=== PATIENT | female | born 1930 | race Caucasian/White ===

== ENCOUNTER 2016-08-10 00:37 | Inpatient (IN) | payer MEDICARE, BC ==
[~2016-08-10] VITALS: Ht 152.4 cm; Wt 41.3 kg
[2016-08-10] MEDS ORDERED: TdaP Vaccine 0.5ml Syr IM ONE (00:45)
[2016-08-10] MEDS ORDERED: Morphine Sulfate 4mg/ml Inj IVP ONE ×3 (00:45→03:45)
--- NOTE | 2016-08-10 00:59 | Emergency Room Report ---
History of Present Illness General Chief Complaint: Multiple Trauma/Fall Source: Patient, EMS Present Illness HPI This is an 85-year-old female with multiple medical problem and also multiple allergy to medication. She presents with chief complaint of a fall and left hip pain. She said she slipped on her socks. Landed on her left hip. Also sustained a laceration to left forearm. Pain is 10 out of 10. Unable to walk. Came in by EMS. EMS gave her morphine without much relief. No other injury. Did not hit her head. Not on anticoagulations. Allergies: Coded Allergies: DIAZEPAM (Verified Allergy, Unknown, 08/10/16) ERYTHROMYCIN BASE (Verified Allergy, Unknown, 08/10/16) LATEX (Verified Allergy, Unknown, 08/10/16) MEPERIDINE (Verified Allergy, Unknown, 08/10/16) MOXIFLOXACIN (Verified Allergy, Unknown, 08/10/16) PENICILLINS (Verified Allergy, Unknown, 08/10/16) THIOPENTAL (Verified Allergy, Unknown, 08/10/16) Uncoded Allergies: iv dye (Allergy, Unknown, 08/10/16) Patient History Past Medical History: see triage record, old chart reviewed Past Surgical History: other Pertinent Family History: none Social History: Denies: smoking Now: No Immunizations: other Reviewed Nursing Documentation: PMH: Agreed, PSxH: Agreed Nursing Documentation-PMH Hx Neurological Problems: Yes - CERVICAL SPINAL STENOSIS Review of Systems Eye: Denies: blurred vision, eye pain ENT: Denies: ear pain, nose congestion, throat swelling Respiratory: Denies: cough, shortness of breath Cardiovascular: Denies: chest pain, palpitations Gastrointestinal: Denies: abdominal pain, diarrhea, nausea, vomiting Musculoskeletal: Reports: joint pain, Denies: back pain Skin: Denies: rash Neurological: Denies: headache, numbness Endocrine: Denies: increased thirst, increased urine Hematologic/Lymphatic: Denies: easy bruising All Other Systems: negative except mentioned in HPI Physical Exam Vital Signs Date Time Temp Pulse Resp B/P Pulse Ox O2 Delivery O2 Flow Rate FiO2 08/10/16 00:30 97.2 97 18 164/91 98 Room Air vitals with hypertension Sp02 EP Interpretation: reviewed, normal General Appearance: alert, moderate distress, thin, Chronically Ill Head: normocephalic, atraumatic Eyes: bilateral eye EOMI, bilateral eye PERRL ENT: hearing grossly normal, normal pharynx Neck: full range of motion, supple, no meningismus Respiratory: chest non-tender, lungs clear, normal breath sounds Cardiovascular #1: regular rate, rhythm, no murmur Gastrointestinal: normal bowel sounds, non tender, no mass, no organomegaly, no bruit, non-distended Musculoskeletal: back normal, other - Left leg: Short and internally rotated. Hip is tender. Neurologic: alert, oriented x3 Psychiatric: mood/affect normal Skin: warm/dry Procedures Laceration/Wound Repair Laceration/Wound Repair : Consent: Verbal Wound Location: upper extremity Wound Length (cm): 3 Wound Explored: clean Irrigated w/ Saline (ccs): 1000 Betadine Prep?: No Wound Repaired With: sutures Suture Size/Type: 4:0, proline Number of Sutures: 6 Medical Decision Making Diagnostic Impression: Primary Impression: Closed intertrochanteric fracture of left hip Qualified Codes: S72.142A - Displaced intertrochanteric fracture of left femur , initial encounter for closed fracture Additional Impressions: Laceration of forearm, left Qualified Codes: S51.812A - Laceration without foreign body of left forearm, initial encounter Fall Qualified Codes: W19.XXXA - Unspecified fall, initial encounter ER Course Patient with a mechanical fall sustaining a left fracture. No dislocation. We' ll need hip replacement. Patient emitted for further workup and orthopedic consultation. No head injury. Laboratory Tests Test 08/10/16 01:20 08/10/16 02:30 White Blood Count 12.4 K/UL (4.8-10.8) H Red Blood Count 4.17 M/UL (4.20-5.40) L Hemoglobin 12.8 G/DL (12.0-16.0) Hematocrit 38.3 % (37.0-47.0) Mean Corpuscular Volume 92 FL (80-99) Mean Corpuscular Hemoglobin 30.7 PG (27.0-31.0) Mean Corpuscular Hemoglobin Concent 33.4 G/DL (32.0-36.0) Red Cell Distribution Width 12.8 % (11.6-14.8) Platelet Count 291 K/UL (150-450) Mean Platelet Volume 7.0 FL (6.5-10.1) Neutrophils (%) (Auto) 76.1 % (45.0-75.0) H Lymphocytes (%) (Auto) 17.9 % (20.0-45.0) L Monocytes (%) (Auto) 3.9 % (1.0-10.0) Eosinophils (%) (Auto) 1.5 % (0.0-3.0) Basophils (%) (Auto) 0.6 % (0.0-2.0) Prothrombin Time 10.4 SEC (9.30-11.50) Prothromb Time International Ratio 1.0 (0.9-1.1) Activated Partial Thromboplast Time 22 SEC (23-33) L Sodium Level 139 mEQ/L (135-145) Potassium Level 4.1 mEQ/L (3.4-4.9) Chloride Level 98 mEQ/L (98-107) Carbon Dioxide Level 25 mEQ/L (20-30) Anion Gap 16 (5-15) H Blood Urea Nitrogen 29 mg/dL (7-23) H Creatinine 0.8 mg/dL (0.5-0.9) Estimat Glomerular Filtration Rate mL/min (>60) Glucose Level 187 mg/dL (74-106) H Calcium Level 8.2 mg/dL (8.6-10.2) L Troponin I < 0.30 ng/mL (<=0.30) Urine Color Yellow Urine Appearance Clear Urine pH 5 (4.5-8.0) Urine Specific [place] 1.020 (1.005-1.035) Urine Protein Negative (NEGATIVE) Urine Glucose (UA) Negative (NEGATIVE) Urine Ketones Negative (NEGATIVE) Urine Occult Blood 2+ (NEGATIVE) H Urine Nitrite Negative (NEGATIVE) Urine Bilirubin Negative (NEGATIVE) Urine Urobilinogen Normal MG/DL (0.0-1.0) Urine Leukocyte Esterase Negative (NEGATIVE) Urine RBC 2-4 /HPF (0 - 2) H Urine WBC 0-2 /HPF (0 - 2) Urine Squamous Epithelial Cells Few /LPF (NONE/OCC) Urine Bacteria None /HPF (NONE) Lab Results Impression labs normal EKG Diagnostic Results Rate: tachycardiac Rhythm: NSR ST Segments: no acute changes Rhythm Strip Diag. Results EP Interpretation: yes Rate: 100 Rhythm: NSR, no PVC's, no ectopy Chest X-Ray Diagnostic Results EP Interpretation: Yes Findings: no consolidation, no effusion, no pneumothorax, no acute cardiopulmonary disease Number of Views: 1 Other X-Ray Diagnostic Results Other X-Ray Diagnostic Results : X-Ray Ordered: Left hip x-rays Date: Aug 10, 2016 Time: 03:39 EP Interpretation: Yes Findings: no dislocation, no soft tissue swelling, other - Displace intertrochanteric fracture Number of Views: 3 Other Impression Pelvis x-ray: one view. Interpreted by me. Displaced left anterior trochanteric fracture. No soft tissue swelling. No dislocation. CT/MRI/US Diagnostic Results CT/MRI/US Diagnostic Results : Imaging Test Ordered: CT pelvis Impression read by radiologist. Displaced left intertrochanteric fracture. Last Vital Signs Date Time Temp Pulse Resp B/P Pulse Ox O2 Delivery O2 Flow Rate FiO2 08/10/16 00:30 97.2 97 18 164/91 98 Room Air Status: improved Disposition: ADMITTED INPATIENT Condition: Serious ROSA BALBUENA M.D. Aug 10, 2016 00:59
[2016-08-10 01:15] VITALS: BP 164/79
[2016-08-10 01:42] LABS: BASOPHILS % (AUTO) 0.6 % (0.0-2.0); EOSINOPHILS % (AUTO) 1.5 % (0.0-3.0); LYMPHOCYTES % (AUTO) 17.9 % (20.0-45.0); MEAN CORPUSCULAR HEMOGLOBIN 30.7 PG (27.0-31.0); MEAN CORPUSCULAR HGB CONC 33.4 G/DL (32.0-36.0); MEAN CORPUSCULAR VOLUME 92 FL (80-99); MONOCYTES % (AUTO) 3.9 % (1.0-10.0); NEUTROPHILS % (AUTO) 76.1 % (45.0-75.0); PLATELET COUNT 291 K/UL (150-450); RED BLOOD COUNT 4.17 M/UL (4.20-5.40); RED CELL DISTRIBUTION WIDTH 12.8 % (11.6-14.8); WHITE BLOOD COUNT 12.4 K/UL (4.8-10.8)
[2016-08-10] MEDS ORDERED: DiphenhydrAMINE 50mg/ml Inj IVP ONE (01:45)
[2016-08-10 02:03] LABS: ANION GAP 16 (5-15); CALCIUM 8.2 mg/dL (8.6-10.2); CARBON DIOXIDE 25 mEQ/L (20-30); CHLORIDE 98 mEQ/L (98-107); CREATININE 0.8 mg/dL (0.5-0.9); HEMOLYSIS 5; POTASSIUM 4.1 mEQ/L (3.4-4.9); SODIUM 139 mEQ/L (135-145)
[2016-08-10 02:08] LABS: TROPONIN I < 0.30 ng/mL (<=0.30)
[2016-08-10] MEDS: LORazepam Inj 2mg/ml 1ml IV ONE ×2 (02:09→02:12)
[2016-08-10 02:10] LABS: PROTHROMBIN TIME 10.4 SEC (9.30-11.50)
[2016-08-10 02:45] LABS: APPEARANCE,URINE CLEAR; KETONES,URINE NEGATIVE (NEGATIVE); LEUKOCYTE ESTERASE ,URINE NEGATIVE (NEGATIVE); NITRITE,URINE NEGATIVE (NEGATIVE); PH,URINE 5 (4.5-8.0); PROTEIN,URINE NEGATIVE (NEGATIVE); UROBILINOGEN,URINE NORMAL MG/DL (0.0-1.0)
[2016-08-10 02:52] LABS: SQUAMOUS EPITHELIAL CELL,UR FEW /LPF (NONE/OCC); WBC,URINE 0-2 /HPF (0 - 2)
[2016-08-10 03:15] VITALS: BP 168/81
[2016-08-10 04:15] VITALS: BP 165/80
[2016-08-10] MEDS ORDERED: ROXICODONE5 MG ORAL (05:01)
[2016-08-10] MEDS ORDERED: MIRALAX17 G2 ORAL (05:01)
[2016-08-10] MEDS ORDERED: Mylanta II UD 30ml ORAL PRN (07:00)
[2016-08-10] MEDS ORDERED: Zolpidem 5mg tab ORAL PRN (07:00)
--- NOTE | 2016-08-10 08:33 | Consultation ---
Consult Note Consult Note Patient seen/evaluated. Right Hip IT fracture. patient has had cardiac issues/murmur in the past Ambulatory prior to this fall. Will need ORIF with gamma nail Will need medical optimization and clearance prior to surgery. Discussed with patients critical care paramedic and patient. Also contacted Bryanna her daughter to discuss. Thank you. HELEN MYRICK Aug 10, 2016 08:33
[2016-08-10] MEDS ORDERED: Flonase Nasal Inhaler 16gm NASAL SCH (09:00)
[2016-08-10] MEDS: Heparin 5000 units/ml inj SUBQ SCH ×2 (09:00→21:00)
[2016-08-10] MEDS: Flonase Nasal Inhaler 16gm NASAL SCH (09:00)
--- NOTE | 2016-08-10 10:14 | Diagnostic Imaging Report ---
Indication: Left hip pain Technique: XRAY HIP 2V LEFT Comparison: None Findings: There is a comminuted left proximal femoral intratrochanteric fracture. There is osteopenia. Atherosclerotic changes are noted. Degenerative changes of the spine are seen. Impression: Comminuted left proximal femoral intratrochanteric fracture.
--- NOTE | 2016-08-10 10:15 | Diagnostic Imaging Report ---
Indication: Left hip pain Technique: AP pelvis Comparison: None Findings: There is a comminuted left proximal femoral intratrochanteric fracture. There is osteopenia. Atherosclerotic changes are noted. Degenerative changes of the spine are seen. Impression: Comminuted left proximal femoral intratrochanteric fracture.
[2016-08-10] MEDS: Morphine Sulfate 2mg/ml Inj IVP PRN ×2 (11:19→13:11)
--- NOTE | 2016-08-10 12:26 | Consultation ---
History of Present Illness General Date patient seen: Aug 10, 2016 Chief Complaint: Multiple Trauma/Fall Referring physician: Dr. Newell Reason for Consultation: Inpatient management Present Illness HPI 85-year-old female with dementia, cachexia presented with chief complaint of a fall and left hip pain. She said she slipped on her socks. Landed on her left hip. she was diagnosed to have Left hip fracture and admitted for orthopedic intervention. Allergies: Coded Allergies: DIAZEPAM (Verified Allergy, Unknown, 08/10/16) ERYTHROMYCIN BASE (Verified Allergy, Unknown, 08/10/16) LATEX (Verified Allergy, Unknown, 08/10/16) MEPERIDINE (Verified Allergy, Unknown, 08/10/16) MOXIFLOXACIN (Verified Allergy, Unknown, 08/10/16) PENICILLINS (Verified Allergy, Unknown, 08/10/16) THIOPENTAL (Verified Allergy, Unknown, 08/10/16) Uncoded Allergies: iv dye (Allergy, Unknown, 08/10/16) Medication History Scheduled Polyethylene Glycol 3350* (Miralax*), 17 GM ORAL DAILY, (Reported) Miscellaneous Medications Oxycodone HCl (Oxycodone HCl), 10 MG ORAL, (Reported) Patient History Healthcare decision maker Resuscitation status Full Code Advanced Directive on File Past Medical/Surgical History Past Medical/Surgical History: (1) Dementia Review of Systems All Other Systems: negative except mentioned in HPI Physical Exam General Appearance: WD/WN, no apparent distress Lines, tubes and drains: peripheral, central line HEENT: normocephalic, atraumatic Neck: non-tender, normal alignment Respiratory/Chest: chest wall non-tender, lungs clear Cardiovascular/Chest: normal peripheral pulses, normal rate Abdomen: normal bowel sounds Genitourinary/Rectal: normal genital exam Extremities: normal range of motion Last 24 Hour Vital Signs Date Time Temp Pulse Resp B/P Pulse Ox O2 Delivery O2 Flow Rate FiO2 08/10/16 04:40 97.2 107 23 168/81 94 Room Air 08/10/16 04:15 97.3 107 23 165/80 94 Room Air 08/10/16 04:13 97.2 08/10/16 03:15 97.2 106 23 168/81 94 Room Air 08/10/16 01:22 97.1 08/10/16 01:22 97.1 08/10/16 01:15 105 22 164/79 96 Room Air 08/10/16 00:30 97.2 97 18 164/91 98 Room Air Intake and Output 08/09/16 08/10/16 19:00 07:00 Output Total 50 ml Balance -50 ml Output Urine Total 50 ml Laboratory Tests Test 08/10/16 01:20 08/10/16 02:30 White Blood Count 12.4 K/UL (4.8-10.8) H Red Blood Count 4.17 M/UL (4.20-5.40) L Hemoglobin 12.8 G/DL (12.0-16.0) Hematocrit 38.3 % (37.0-47.0) Mean Corpuscular Volume 92 FL (80-99) Mean Corpuscular Hemoglobin 30.7 PG (27.0-31.0) Mean Corpuscular Hemoglobin Concent 33.4 G/DL (32.0-36.0) Red Cell Distribution Width 12.8 % (11.6-14.8) Platelet Count 291 K/UL (150-450) Mean Platelet Volume 7.0 FL (6.5-10.1) Neutrophils (%) (Auto) 76.1 % (45.0-75.0) H Lymphocytes (%) (Auto) 17.9 % (20.0-45.0) L Monocytes (%) (Auto) 3.9 % (1.0-10.0) Eosinophils (%) (Auto) 1.5 % (0.0-3.0) Basophils (%) (Auto) 0.6 % (0.0-2.0) Prothrombin Time 10.4 SEC (9.30-11.50) Prothromb Time International Ratio 1.0 (0.9-1.1) Activated Partial Thromboplast Time 22 SEC (23-33) L Sodium Level 139 mEQ/L (135-145) Potassium Level 4.1 mEQ/L (3.4-4.9) Chloride Level 98 mEQ/L (98-107) Carbon Dioxide Level 25 mEQ/L (20-30) Anion Gap 16 (5-15) H Blood Urea Nitrogen 29 mg/dL (7-23) H Creatinine 0.8 mg/dL (0.5-0.9) Estimat Glomerular Filtration Rate mL/min (>60) Glucose Level 187 mg/dL (74-106) H Calcium Level 8.2 mg/dL (8.6-10.2) L Troponin I < 0.30 ng/mL (<=0.30) Urine Color Yellow Urine Appearance Clear Urine pH 5 (4.5-8.0) Urine Specific [place] 1.020 (1.005-1.035) Urine Protein Negative (NEGATIVE) Urine Glucose (UA) Negative (NEGATIVE) Urine Ketones Negative (NEGATIVE) Urine Occult Blood 2+ (NEGATIVE) H Urine Nitrite Negative (NEGATIVE) Urine Bilirubin Negative (NEGATIVE) Urine Urobilinogen Normal MG/DL (0.0-1.0) Urine Leukocyte Esterase Negative (NEGATIVE) Urine RBC 2-4 /HPF (0 - 2) H Urine WBC 0-2 /HPF (0 - 2) Urine Squamous Epithelial Cells Few /LPF (NONE/OCC) Urine Bacteria None /HPF (NONE) Height (Feet): 5 Height (Inches): 0.00 Weight (Pounds): 91 Medications Current Medications Medications (Trade) Dose Ordered Sig/Taiwo Route PRN Reason Start Time Stop Time Status Last Admin Dose Admin Acetaminophen (Tylenol) 650 mg Q4H PRN ORAL fever 08/10/16 07:00 09/09/16 06:59 Al Hydroxide/Mg Hydroxide (Mylanta II) 30 ml Q6H PRN ORAL dyspepsia 08/10/16 07:00 09/09/16 06:59 Dextrose (Dextrose 50%) STAT PRN IV Hypoglycemia 08/10/16 07:00 09/09/16 06:59 Fluticasone Propionate (Flonase) 2 spray DAILY NASAL 08/10/16 09:00 09/09/16 08:59 Heparin Sodium (Porcine) (Heparin 5000 units/ml) 5,000 units EVERY 12 HOURS SUBQ 08/10/16 09:00 09/09/16 08:59 Lorazepam (Ativan 2mg/ml 1ml) 0.4 mg EVERY 4 HOURS PRN IM Agitation 08/10/16 12:15 08/17/16 12:14 UNV Morphine Sulfate (Morphine Sulfate) 2 mg EVERY 4 HOURS PRN IVP For Pain 4-6 08/10/16 07:00 08/17/16 06:59 08/10/16 11:19 Morphine Sulfate (Morphine Sulfate) 2 mg Q4H PRN SUBQ For Pain 08/10/16 12:15 08/17/16 12:14 UNV Ondansetron HCl (Zofran) 4 mg Q6H PRN IVP Nausea & Vomiting 08/10/16 07:00 09/09/16 06:59 Oxycodone HCl (Roxicodone) 10 mg EVERY 8 HOURS ORAL 08/10/16 14:00 08/17/16 13:59 Polyethylene Glycol (Miralax) 17 gm HSPRN PRN ORAL Constipation 08/10/16 07:00 09/09/16 06:59 Sodium Chloride (Sodium Chloride 1000ml bag) 1,000 ml @ 75 mls/hr [id number] IVLG 08/12/16 06:00 09/11/16 05:59 Zolpidem Tartrate 5 mg 5 mg HSPRN PRN ORAL Insomnia 08/10/16 07:00 09/09/16 06:59 Assessment/Plan Problem List: (1) Severe protein-calorie malnutrition ICD Codes: E43 - Unspecified severe protein-calorie malnutrition SNOMED: 862357998 (2) Azotemia ICD Codes: R79.89 - Other specified abnormal findings of blood chemistry SNOMED: 325083297 (3) Dementia ICD Codes: F03.90 - Unspecified dementia without behavioral disturbance SNOMED: 45567482 (4) Closed intertrochanteric fracture of left hip ICD Codes: S72.142A - Displaced intertrochanteric fracture of left femur, initial encounter for closed fracture SNOMED: 15257849 Qualifiers: Qualified Codes: S72.142A - Displaced intertrochanteric fracture of left femur, initial encounter for closed fracture Assessment/Plan IV fluids pain management f/u by ortho check electrolytes. KYRA MOMIN Aug 10, 2016 12:26
[2016-08-10 12:48] VITALS: BP 118/90
[2016-08-10] MEDS: LORazepam Inj 2mg/ml 1ml IM PRN ×3 (13:21→18:53)
[2016-08-10] MEDS: oxyCODONE 5mg IR tab ORAL SCH ×2 (13:22→21:13)
--- NOTE | 2016-08-10 14:15 | Cardiology Progress Note ---
Assessment/Plan Assessment/Plan The patient is seen and examined, full consult note is dictated. Objective Last 24 Hour Vital Signs Date Time Temp Pulse Resp B/P Pulse Ox O2 Delivery O2 Flow Rate FiO2 08/10/16 12:48 97.0 48 18 118/90 94 Nasal Cannula 2.0 08/10/16 04:40 97.2 107 23 168/81 94 Room Air 08/10/16 04:15 97.3 107 23 165/80 94 Room Air 08/10/16 04:13 97.2 08/10/16 03:15 97.2 106 23 168/81 94 Room Air 08/10/16 01:22 97.1 08/10/16 01:22 97.1 08/10/16 01:15 105 22 164/79 96 Room Air 08/10/16 00:30 97.2 97 18 164/91 98 Room Air Intake and Output 08/09/16 08/10/16 19:00 07:00 Output Total 50 ml Balance -50 ml Output Urine Total 50 ml Laboratory Tests Test 08/10/16 01:20 08/10/16 02:30 White Blood Count 12.4 K/UL (4.8-10.8) H Red Blood Count 4.17 M/UL (4.20-5.40) L Hemoglobin 12.8 G/DL (12.0-16.0) Hematocrit 38.3 % (37.0-47.0) Mean Corpuscular Volume 92 FL (80-99) Mean Corpuscular Hemoglobin 30.7 PG (27.0-31.0) Mean Corpuscular Hemoglobin Concent 33.4 G/DL (32.0-36.0) Red Cell Distribution Width 12.8 % (11.6-14.8) Platelet Count 291 K/UL (150-450) Mean Platelet Volume 7.0 FL (6.5-10.1) Neutrophils (%) (Auto) 76.1 % (45.0-75.0) H Lymphocytes (%) (Auto) 17.9 % (20.0-45.0) L Monocytes (%) (Auto) 3.9 % (1.0-10.0) Eosinophils (%) (Auto) 1.5 % (0.0-3.0) Basophils (%) (Auto) 0.6 % (0.0-2.0) Prothrombin Time 10.4 SEC (9.30-11.50) Prothromb Time International Ratio 1.0 (0.9-1.1) Activated Partial Thromboplast Time 22 SEC (23-33) L Sodium Level 139 mEQ/L (135-145) Potassium Level 4.1 mEQ/L (3.4-4.9) Chloride Level 98 mEQ/L (98-107) Carbon Dioxide Level 25 mEQ/L (20-30) Anion Gap 16 (5-15) H Blood Urea Nitrogen 29 mg/dL (7-23) H Creatinine 0.8 mg/dL (0.5-0.9) Estimat Glomerular Filtration Rate mL/min (>60) Glucose Level 187 mg/dL (74-106) H Calcium Level 8.2 mg/dL (8.6-10.2) L Troponin I < 0.30 ng/mL (<=0.30) Urine Color Yellow Urine Appearance Clear Urine pH 5 (4.5-8.0) Urine Specific [place] 1.020 (1.005-1.035) Urine Protein Negative (NEGATIVE) Urine Glucose (UA) Negative (NEGATIVE) Urine Ketones Negative (NEGATIVE) Urine Occult Blood 2+ (NEGATIVE) H Urine Nitrite Negative (NEGATIVE) Urine Bilirubin Negative (NEGATIVE) Urine Urobilinogen Normal MG/DL (0.0-1.0) Urine Leukocyte Esterase Negative (NEGATIVE) Urine RBC 2-4 /HPF (0 - 2) H Urine WBC 0-2 /HPF (0 - 2) Urine Squamous Epithelial Cells Few /LPF (NONE/OCC) Urine Bacteria None /HPF (NONE) VINH GRIMALDO Aug 10, 2016 14:15
[2016-08-10 16:00] VITALS: BP 128/77
--- NOTE | 2016-08-10 16:49 | Cardiology Report ---
APPROVED REPORT EXAM: Two-dimensional and M-mode echocardiogram with Doppler and color Doppler. INDICATION Preop Technically difficult study due to poor acoustic windows.Limited study due to patient moving and refusing to finish the study. Study quality precludes accurate assessment of regional wall motion. Normal left ventricular chamber size, systolic function and wall motion. M-mode measurement not obtainable due to cardiac position. Left ventricular ejection fraction estimated to be 60-65%. Mild left ventricular hypertrophy. No evidence of pericardial fat or effusion. Aortic valve seems to appear stenotic. Thickened mitral valve leaflets with normal excursion. Mitral annulus and aortic root calcification. A color flow and spectral Doppler study was performed and revealed: Mild aortic regurgitation. No mitral regurgitation.
--- NOTE | 2016-08-10 17:10 | General Progress Note ---
Progress Note Progress Note [id number] full note dictated KATT LAURENT Aug 10, 2016 17:10
[2016-08-10] MEDS: Morphine Sulfate 2mg/ml Inj SUBQ PRN ×2 (17:35→22:07)
[2016-08-10 20:00] VITALS: BP 101/64
--- NOTE | 2016-08-10 20:08 | History and Physical Report ---
DATE OF ADMISSION: 08/10/2016 TIME: 8 a.m. CONSULTANTS: 1. Pedro Moore M.D. 2. Zach Dempsey M.D. 3. Marcial Silva M.D. CHIEF COMPLAINT: Left hip fracture. BRIEF HISTORY: This is an 85-year-old female who lives at home and presents, apparently slipped and fell, fractured her left hip. The patient came to [facility] and diagnosed with the above and admitted to medical floor for further treatment. Orthopedics saw the patient, will clear for surgery, probably Friday. The patient is slightly anxious, no compliant. REVIEW OF SYSTEMS: No chest pain or shortness of breath. No nausea, vomiting or diarrhea. PAST MEDICAL HISTORY: Nothing. PAST SURGICAL HISTORY: Left shoulder. MEDICATIONS: Roxicodone, heparin, Flonase, Tylenol, Mylanta, dextrose, morphine, Zofran, MiraLAX, and Ambien. ALLERGIES: Diazepam, erythromycin, latex, meropenem, Moxifloxacin, penicillin, , and IV dye. SOCIAL HISTORY: No smoking. No alcohol. No intravenous drug abuse. FAMILY HISTORY: Noncontributory. PHYSICAL EXAMINATION: GENERAL: The patient is calm in bed, oriented x3, slightly anxious, no complaint otherwise. VITAL SIGNS: Temperature 97 degrees, pulse 107, respiratory rate 23, and blood pressure 168/81. CARDIOVASCULAR: No murmur. LUNGS: Distant clear. ABDOMEN: Positive bowel sounds. Nontender and nondistended. EXTREMITIES: No cyanosis, clubbing or edema. NEUROLOGIC: The patient moves all extremities, but slightly weak on the left side. Left leg about half-inch shorter, 45 degrees externally rotated. LABORATORY AND DIAGNOSTIC DATA: White count 12.4, otherwise CBC is normal. BMP shows BUN 29 and glucose 187, otherwise normal. INR is 1.0. Urinalysis 2+ occult blood. ASSESSMENT: 1. Left hip fracture. 2. Diabetes. 3. Leukocytosis. PLAN: Continue pre-medications. OT/PT. Dietary evaluation. CBC and BMP in the morning. Pain control. Antibiotics per ID. Dr. Moore, Dr. Dempsey, Dr. Silva, and Dr. Salas to consult. Carl Newell D.O. DR: VIOLET JOB#: [id number] CC:
--- NOTE | 2016-08-10 20:18 | Consultation ---
DATE OF CONSULTATION: 08/10/2016 ORTHOPEDIC CONSULTATION CONSULTING PHYSICIAN: Pedro Moore M.D. REQUESTING PHYSICIAN: Carl Newell D.O. REASON FOR CONSULTATION: Left-sided hip fracture. BRIEF HISTORY: The patient is a pleasant 85-year-old female with history of medical problems including multiple allergies to medication and history of cardiac issues, who sustained a mechanical fall and landed on her left hip. The patient apparently was ambulatory prior to this. She apparently slipped on her slippery socks and fell down and landed on the left hip. She had a small laceration to the left forearm. This was not large. X-rays were obtained, which showed a left comminuted intertrochanteric fracture. She was admitted to the hospital for pain control and for definitive treatment. PAST MEDICAL HISTORY: Significant for history of cardiac issues, history of left shoulder replacement, arm fracture in the past, and cervical and lumbar stenosis. The patient has had MRI and was cleared to have anesthesia. PAST SURGICAL HISTORY: Left total shoulder replacement. ALLERGIES: Diazepam, erythromycin, latex, meperidine, moxifloxacin, penicillin, and thiopental. SOCIAL HISTORY: She has a caregiver. She also has a daughter, the nieceOliver at [phone]. She was a household ambulator prior to this fall. PHYSICAL EXAMINATION: GENERAL: She is a pleasant lady, cooperative with the examination. EXTREMITIES: She is in pain. Palpation of left hip causes severe pain. There is some shortening of left hip. She is able to wiggle her toes. There is no skin breakdown. She is a rather fragile and thin lady. IMAGING: X-ray and CT scans of the left hip is reviewed. There is a significant comminuted peritrochanteric fracture. Hip x-rays were not very good and CT scan was reviewed. Again, there is a comminuted peritrochanteric fracture. IMPRESSION: Left hip peritrochanteric fracture in an 85-year-old fragile lady with multiple medical problems. PLAN: I have spoken with Dr. Carl Newell. The patient most likely needs cardiac clearance prior to surgery. We recommend 2D echo and other testing to be done prior to surgery. We will get her optimized and hydrate as well and hopefully plan on proceeding with surgery in the next 48 hours or so depending on how she does with her optimization and clearance. This was discussed with the patient and the caregiver. We will call in to her daughter, Bryanna and we will proceed with surgery once she is optimized and cleared. All questions were answered. Pedro Moore M.D. DR: AYDIN JOB#: [id number] CC: AMINAH
[2016-08-11] VITALS: BP 139/72
--- NOTE | 2016-08-11 00:18 | Consultation ---
DATE OF CONSULTATION: 08/10/2016 CARDIOLOGY CONSULTATION: CONSULTING PHYSICIAN: Marcial Silva M.D. REFERRING PHYSICIAN: Carl Newell D.O. REASON FOR CONSULTATION: Cardiac evaluation preoperatively for noncardiac surgery. HISTORY OF PRESENT ILLNESS: The patient is a very unfortunate 85-year-old female, who presents to the hospital after sustaining a fall and injured left hip. She was diagnosed with left displaced intertrochanteric fracture of left femur during serial x-rays. She was then sent to med/surg in preparation for possible surgical repair. Cardiology consultation was made at the request of Dr. Newell for assessment and evaluation of this condition. The patient did not have any lightheadedness, dizziness, or loss of consciousness prior to this event. She sustained laceration to left forearm. She was unable to walk. On arrival to the emergency department, blood pressure was 164/91 and pulse of 97. She denies any history of coronary artery disease, cardiac arrhythmias, or congestive heart failure. According to the caregiver, she was able to walk unassisted without having any limitations such as shortness of breath or chest pain. ALLERGIES: To diazepam, erythromycin, Latex, meperidine, moxifloxacin, penicillin, and thiopental. History of allergic disorder. PAST SURGICAL HISTORY: Left shoulder surgery. FAMILY HISTORY: No premature coronary artery disease in first-degree relatives. SOCIAL HISTORY: There are no episodes of tobacco, alcohol, or illicit drug use. REVIEW OF SYSTEMS: HEENT: Denies any headache, diplopia, or blurred vision. Constitutional: Denies any fever, chills, night sweats, or weight loss. Cardiovascular: Denies any chest pain, shortness of breath, PND, orthopnea, or leg swelling. Pulmonary: Denies any cough, hemoptysis, or wheezing. Gastrointestinal: Denies any nausea, vomiting, diarrhea, constipation, abdominal pain, or GI bleed. Genitourinary: Denies any hematuria, dysuria, or incontinence. Neurologic: Denies any motor dysfunction, sensory deficit, or altered speech. Musculoskeletal: Left leg very careful in the hip area. She is unable to walk. MEDICATIONS: List of medications at home includes MiraLax 17 g p.o. daily and oxycodone 10 mg by mouth q.6-8 hours p.r.n. pain in the left shoulder. PHYSICAL EXAMINATION: VITAL SIGNS: Blood pressure 164/91, respirations 18, pulse 97, and temperature 97.3 degrees Fahrenheit. GENERAL: The patient is a very unfortunate 85-year-old lady who has excruciating pain in the left hip with minimal movements. Alert and oriented x4. HEENT: Atraumatic and normocephalic. Anicteric. Pupils are equal, round, and accommodation. Dry mucosal membranes. Pupils are equal, round, and reactive to light and accommodation. Extraocular muscles intact. NECK: JVP is less than 5 cm. No carotid bruits. Carotid upstrokes 2+ bilaterally. CARDIOVASCULAR: Normal S1, S2. Irregularly irregular rhythm. A 2/6 mid systolic murmur in the left sternal border. PMI is at fourth intercostal space in the midclavicular line. LUNGS: Clear to auscultation bilaterally. ABDOMEN: Soft, nontender, and nondistended. No hepatosplenomegaly. Positive bowel sounds. EXTREMITIES: Left leg appears to be shorter. There is some cyanotic appearances of the toes. There is left leg and external rotation position. Tenderness over the left hip. LABORATORY FINDINGS: WBC 12.4, hemoglobin 12.8, hematocrit 38.3, and platelet count is 291,000. Sodium 139, potassium 4.1, chloride 98, bicarbonate 25, BUN 29, creatinine 0.8, and glucose is 187. Calcium is 8.2. Troponin I is less than 0.3. INR is 1.0. IMAGING: Hip x-ray showed a comminuted left proximal femur intertrochanteric fracture. ASSESSMENT AND PLAN: The patient is a very unfortunate 85-year-old female, seen in Cardiology consultation at the request of Dr. Newell. The patient is asymptomatic and is undergoing an intermediate risk surgery. There are no risk factors for coronary artery disease except her age. Limited 2D echocardiography had shown overall normal left ventricular systolic function with LVEF of 60% to 65%. The patient is therefore cleared for the above surgery with the risk of coronary artery events perioperatively estimated to be less than 1%. We would like to recommend hydration in this patient. Her underlying rhythm is multifocal atrial tachycardia for which I would like to offer calcium channel blockers. We will continue to watch the patient's blood pressure in response to Cardizem. We will continue postoperative followup closely. I would like to thank, Dr. Newell, for courtesy of this consultation. Marcial Silva M.D. DR: KAYLEEN JOB#: [id number] CC:
--- NOTE | 2016-08-11 00:28 | Consultation ---
DATE OF CONSULTATION: 08/10/2016 CONSULTING PHYSICIAN: Caridad Wright M.D. REFERRING PHYSICIAN: Carl Newell D.O. REASON FOR CONSULT: Prerenal azotemia, hypocalcemia, and hematuria. HISTORY OF PRESENT ILLNESS: The patient is an unfortunate 85-year-old, demented female with past medical history significant for history of cachexia and hypertension who was presented to [facility] complaining of left hip pain . The patient apparently slipped and landed on her left side and ever since she complained of left hip pain. The patient was brought into [facility]. In the ER, the patient had an x-ray of the hip, which revealed left intertrochanteric fracture. Consequently, the patient was admitted, found to have an abnormal electrolyte, and blood in urine dip. I was called for management of renal disease and electrolyte imbalance. PAST MEDICAL HISTORY: History of hypertension, history of dementia, and history of cachexia. ALLERGIES: She has multiple allergies including diazepam, erythromycin, latex, morphine, moxifloxacin, penicillin, and thiopental. FAMILY HISTORY: Noncontributory. PAST SURGICAL HISTORY: None. REVIEW OF SYSTEMS: Limited due to the patient's history of dementia. General: The patient has generalized weakness. No fever or chills. No night sweats was reported. Pulmonary: No shortness of breath or cough was reported. Cardiovascular: Mild chest pain, not radiating. It was associated with shortness of breath or palpitations. Gastrointestinal: There was no nausea or vomiting was reported. Genitourinary: No dysuria. No frequency. No hematuria. PHYSICAL EXAMINATION: VITAL SIGNS: The patient has a temperature of 97 degrees, pulse of 106, blood pressure 168/81, temperature of 97, and pulse ox of 94%. HEAD AND NECK: No JVD. No LAD. No thyromegaly. Extraocular movement intact. Pupils are reactive to light and accommodation. LUNGS: Clear to auscultation. CARDIAC: Regular rate and rhythm. S1-S2. No murmur. No rub. ABDOMEN: Soft, nontender, and nondistended. EXTREMITIES: The patient's left hip is internally rotated with severe pain to touch. LABORATORY DATA: The patient had a UA, which reveal of specific gravity of 1.020, pH of 6, blood 2+, RBCs 2 to 4, WBCs 0 to 2, and bacteria few. Chemistry reveals sodium 139, potassium 4.9, 98 chloride, BUN of 29, creatinine of 0.9, glucose of 187, and calcium of 8.2. CBC revealed WBC count of 12.4, hemoglobin of 12.8, hematocrit of 38, and platelet count of 291,000. ASSESSMENT: 1. Hypocalcemia. 2. Prerenal azotemia. 3. Hematuria. 4. Elevated blood sugar, diabetes is a possibility. 5. Uncontrolled blood pressure. PLAN: Plan for the patient. I would recommend the patient to start on proper pain medication. May consider starting the Norvasc or beta-tavia for better blood pressure control. The blood pressure goal for this patient is less than 130/75. I would check the vitamin D for evaluation of the hypocalcemia. Pain management and possible orthopedic consultation for hip fracture. I would like to thank, Dr. Carl Newell, for allowing me to participate in the care of this patient. Caridad Wright M.D. DR: ROCIO JOB#: [id number] CC:
[2016-08-11] MEDS: LORazepam Inj 2mg/ml 1ml IM PRN ×2 (00:53→16:13)
[2016-08-11] MEDS: Morphine Sulfate 2mg/ml Inj IVP PRN (02:05)
[2016-08-11] MEDS: oxyCODONE 5mg IR tab ORAL SCH ×3 (05:43→22:05)
[2016-08-11 06:25] VITALS: BP 158/55
[2016-08-11 08:00] VITALS: BP 147/88
--- NOTE | 2016-08-11 08:06 | General Progress Note ---
Assessment/Plan Problem List: (1) Laceration of forearm, left ICD Codes: S51.812A - Laceration without foreign body of left forearm, initial encounter SNOMED: 891891354, [id number] Qualifiers: Qualified Codes: S51.812A - Laceration without foreign body of left forearm , initial encounter (2) Fall ICD Codes: W19.XXXA - Unspecified fall, initial encounter SNOMED: 7496229, 060845352 Qualifiers: Qualified Codes: W19.XXXA - Unspecified fall, initial encounter (3) Dementia ICD Codes: F03.90 - Unspecified dementia without behavioral disturbance SNOMED: 98953932 (4) Severe protein-calorie malnutrition ICD Codes: E43 - Unspecified severe protein-calorie malnutrition SNOMED: 781818749 (5) Closed intertrochanteric fracture of left hip ICD Codes: S72.142A - Displaced intertrochanteric fracture of left femur, initial encounter for closed fracture SNOMED: 67600483 Qualifiers: Qualified Codes: S72.142A - Displaced intertrochanteric fracture of left femur, initial encounter for closed fracture (6) Azotemia ICD Codes: R79.89 - Other specified abnormal findings of blood chemistry SNOMED: 430452593 Status: stable, progressing, tolerating diet Assessment/Plan ot pt diet abx cbc bmp am pending ortho sx Subjective Constitutional: Reports: weakness Allergies: Coded Allergies: DIAZEPAM (Verified Allergy, Unknown, 08/10/16) ERYTHROMYCIN BASE (Verified Allergy, Unknown, 08/10/16) LATEX (Verified Allergy, Unknown, 08/10/16) MEPERIDINE (Verified Allergy, Unknown, 08/10/16) MOXIFLOXACIN (Verified Allergy, Unknown, 08/10/16) PENICILLINS (Verified Allergy, Unknown, 08/10/16) THIOPENTAL (Verified Allergy, Unknown, 08/10/16) Uncoded Allergies: iv dye (Allergy, Unknown, 08/10/16) All Systems: reviewed and negative except above Subjective sleepy calm Objective Last 24 Hour Vital Signs Date Time Temp Pulse Resp B/P Pulse Ox O2 Delivery O2 Flow Rate FiO2 08/11/16 06:25 97.3 84 20 158/55 98 Nasal Cannula 2.0 08/11/16 02:35 98.2 08/11/16 00:00 98.2 104 20 139/72 96 Nasal Cannula 2.0 08/10/16 22:37 98.1 08/10/16 20:00 98.1 80 16 101/64 97 Nasal Cannula 2.0 08/10/16 16:00 97.0 76 18 128/77 92 Nasal Cannula 2.0 08/10/16 13:30 74 18 95 Nasal Cannula 2.0 08/10/16 12:48 97.0 48 18 118/90 94 Nasal Cannula 2.0 Intake and Output 08/10/16 08/11/16 19:00 07:00 Intake Total 540 ml Output Total 400 ml Balance 140 ml Intake Oral 540 ml Output Urine Total 400 ml Height (Feet): 5 Height (Inches): 0.00 Weight (Pounds): 91 General Appearance: lethargic EENT: normal ENT inspection Neck: normal alignment Cardiovascular: normal peripheral pulses, normal rate, regular rhythm Respiratory/Chest: chest wall non-tender, lungs clear, decreased breath sounds Abdomen: normal bowel sounds, non tender, soft Extremities: normal inspection Edema: no edema noted Arm (L), no edema noted Arm (R), no edema noted Leg (L), no edema noted Leg (R), no edema noted Pedal (L), no edema noted Pedal (R), no edema noted Generalized Neurologic: responsive, motor weakness Skin: normal pigmentation, warm/dry ZARA MAS Aug 11, 2016 08:06
[2016-08-11 08:11] LABS: BASOPHILS % (AUTO) 0.5 % (0.0-2.0); MEAN CORPUSCULAR HEMOGLOBIN 30.6 PG (27.0-31.0); MEAN CORPUSCULAR VOLUME 93 FL (80-99); MEAN PLATELET VOLUME 7.1 FL (6.5-10.1); MONOCYTES % (AUTO) 11.1 % (1.0-10.0); NEUTROPHILS % (AUTO) 74.4 % (45.0-75.0); PLATELET COUNT 284 K/UL (150-450); RED BLOOD COUNT 3.49 M/UL (4.20-5.40); RED CELL DISTRIBUTION WIDTH 13.3 % (11.6-14.8); WHITE BLOOD COUNT 11.7 K/UL (4.8-10.8)
[2016-08-11 08:30] LABS: ALANINE AMINOTRANSFERASE 24 U/L (3-33); ALBUMIN/GLOBULIN RATIO 1.1 (1.0-2.7); ANION GAP 15 (5-15); ASPARTATE AMINO TRANSFERASE 47 U/L (5-40); CALCIUM 8.6 mg/dL (8.6-10.2); CARBON DIOXIDE 25 mEQ/L (20-30); CHLORIDE 99 mEQ/L (98-107); CREATININE 0.9 mg/dL (0.5-0.9); HEMOLYSIS 2; POTASSIUM 5.1 mEQ/L (3.4-4.9); SODIUM 139 mEQ/L (135-145); TOTAL PROTEIN 6.5 g/dL (6.6-8.7)
[2016-08-11] MEDS: Flonase Nasal Inhaler 16gm NASAL SCH (09:00)
[2016-08-11] MEDS: Morphine Sulfate 2mg/ml Inj SUBQ PRN ×3 (10:44→20:17)
[2016-08-11] MEDS: Heparin 5000 units/ml inj SUBQ SCH ×2 (10:49→21:00)
[2016-08-11 12:00] VITALS: BP 127/64
--- NOTE | 2016-08-11 15:55 | Nephrology Progress Note ---
Assessment/Plan Assessment 1. Hypocalcemia. 2. Prerenal azotemia. 3. Hematuria. 4. Elevated blood sugar, diabetes is a possibility. 5. Uncontrolled blood pressure. Plan plan continue ivf replace electrolyte as need monitoring renal function avoid NSAID Subjective ROS Limited/Unobtainable: Yes Constitutional: Reports: no symptoms HEENT: Reports: no symptoms Genitourinary: Reports: no symptoms Neurologic/Psychiatric: Reports: no symptoms Subjective awake confused Objective Objective Last 24 Hour Vital Signs Date Time Temp Pulse Resp B/P Pulse Ox O2 Delivery O2 Flow Rate FiO2 08/11/16 12:00 98.0 86 20 127/64 95 Room Air 08/11/16 11:14 98.0 08/11/16 08:00 98.0 105 20 147/88 96 Nasal Cannula 2.0 08/11/16 06:25 97.3 84 20 158/55 98 Nasal Cannula 2.0 08/11/16 02:35 98.2 08/11/16 00:00 98.2 104 20 139/72 96 Nasal Cannula 2.0 08/10/16 20:00 98.1 80 16 101/64 97 Nasal Cannula 2.0 08/10/16 16:00 97.0 76 18 128/77 92 Nasal Cannula 2.0 Intake and Output 08/10/16 08/11/16 19:00 07:00 Intake Total 540 ml Output Total 400 ml Balance 140 ml Intake Oral 540 ml Output Urine Total 400 ml Laboratory Tests 08/11/16 07:45: White Blood Count 11.7H, Red Blood Count 3.49L, Hemoglobin 10.7L, Hematocrit 32.4L, Mean Corpuscular Volume 93, Mean Corpuscular Hemoglobin 30.6, Mean Corpuscular Hemoglobin Concent 33.0, Red Cell Distribution Width 13.3, Platelet Count 284, Mean Platelet Volume 7.1, Neutrophils (%) (Auto) 74.4, Lymphocytes (% ) (Auto) 14.0L, Monocytes (%) (Auto) 11.1H, Eosinophils (%) (Auto) 0.0, Basophils (%) (Auto) 0.5, Sodium Level 139, Potassium Level 5.1H, Chloride Level 99, Carbon Dioxide Level 25, Anion Gap 15, Blood Urea Nitrogen 43H, Creatinine 0.9, Estimat Glomerular Filtration Rate , Glucose Level 133H, Calcium Level 8.6, Total Bilirubin 0.7, Aspartate Amino Transf (AST/SGOT) 47H, Alanine Aminotransferase (ALT/SGPT) 24, Alkaline Phosphatase 63, Total Creatine Kinase 782H, Total Protein 6.5L, Albumin 3.5, Globulin 3.0, Albumin/Globulin Ratio 1.1, Vitamin D 25-Hydroxy [Pending], 25-Hydroxy Vitamin D2 [Pending], 25- Hydroxy Vitamin D3 [Pending] Height (Feet): 5 Height (Inches): 0.00 Weight (Pounds): 91 Objective HEAD AND NECK: No JVD. No LAD. No thyromegaly. Extraocular movement intact. Pupils are reactive to light and accommodation. LUNGS: Clear to auscultation. CARDIAC: Regular rate and rhythm. S1-S2. No murmur. No rub. ABDOMEN: Soft, nontender, and nondistended. EXTREMITIES: The patient's left hip is internally rotated with severe pain to touch. KATT LAURENT Aug 11, 2016 15:55
[2016-08-11 16:11] VITALS: BP_SYST 113; BP_SYST 127; BP_DIAS 61; BP_DIAS 64
--- NOTE | 2016-08-11 18:49 | Cardiology Report ---
APPROVED REPORT EKG Measurement Heart [id number] Sinus tachycardia with premature atrial complexes Anteroseptal infarct, age undetermined Abnormal ECG
[2016-08-11 20:00] VITALS: BP 117/79
--- NOTE | 2016-08-11 22:36 | Pulmonology Progress Note ---
Assessment/Plan Problems: (1) Severe protein-calorie malnutrition (2) Azotemia (3) Dementia (4) Closed intertrochanteric fracture of left hip Assessment/Plan Plan IV fluids pain management f/u by ortho check electrolytes. Subjective ROS Limited/Unobtainable: Yes Constitutional: Reports: anorexia, fatigue Neurologic: Reports: confusion, weakness Allergies: Coded Allergies: SULFAMETHOXAZOLE (Verified Allergy, Mild, itching, 08/19/16) TRIMETHOPRIM (Verified Allergy, Mild, itching, 08/19/16) DIAZEPAM (Verified Allergy, Unknown, 08/10/16) ERYTHROMYCIN BASE (Verified Allergy, Unknown, 08/10/16) LATEX (Verified Allergy, Unknown, 08/10/16) MEPERIDINE (Verified Allergy, Unknown, 08/10/16) MOXIFLOXACIN (Verified Allergy, Unknown, 08/10/16) PENICILLINS (Verified Allergy, Unknown, 08/10/16) THIOPENTAL (Verified Allergy, Unknown, 08/10/16) Uncoded Allergies: iv dye (Allergy, Unknown, 08/10/16) Objective Last 24 Hour Vital Signs Date Time Temp Pulse Resp B/P Pulse Ox O2 Delivery O2 Flow Rate FiO2 08/11/16 20:00 98.1 80 20 117/79 90 Room Air 08/11/16 16:11 97.4 78 19 113/61 90 Room Air 08/11/16 15:50 98.0 08/11/16 12:00 98.0 86 20 127/64 95 Room Air 08/11/16 08:00 98.0 105 20 147/88 96 Nasal Cannula 2.0 08/11/16 06:25 97.3 84 20 158/55 98 Nasal Cannula 2.0 08/11/16 02:35 98.2 08/11/16 00:00 98.2 104 20 139/72 96 Nasal Cannula 2.0 Intake and Output 08/10/16 08/11/16 19:00 07:00 Intake Total 540 ml Output Total 400 ml Balance 140 ml Intake Oral 540 ml Output Urine Total 400 ml General Appearance: no acute distress HEENT: normocephalic, atraumatic, PERRL Respiratory/Chest: chest wall non-tender, decreased breath sounds, accessory muscle use Breasts: no masses Cardiovascular: normal peripheral pulses, normal rate, regular rhythm, no JVD Abdomen: normal bowel sounds, soft, non tender, no organomegaly, non distended Genitourinary: normal external genitalia Extremities: no cyanosis Skin: no rash, no lesions Neurologic/Psychiatric: 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 grossly normal, responsive, disoriented Laboratory Tests 08/11/16 07:45: White Blood Count 11.7H, Red Blood Count 3.49L, Hemoglobin 10.7L, Hematocrit 32.4L, Mean Corpuscular Volume 93, Mean Corpuscular Hemoglobin 30.6, Mean Corpuscular Hemoglobin Concent 33.0, Red Cell Distribution Width 13.3, Platelet Count 284, Mean Platelet Volume 7.1, Neutrophils (%) (Auto) 74.4, Lymphocytes (% ) (Auto) 14.0L, Monocytes (%) (Auto) 11.1H, Eosinophils (%) (Auto) 0.0, Basophils (%) (Auto) 0.5, Sodium Level 139, Potassium Level 5.1H, Chloride Level 99, Carbon Dioxide Level 25, Anion Gap 15, Blood Urea Nitrogen 43H, Creatinine 0.9, Estimat Glomerular Filtration Rate , Glucose Level 133H, Calcium Level 8.6, Total Bilirubin 0.7, Aspartate Amino Transf (AST/SGOT) 47H, Alanine Aminotransferase (ALT/SGPT) 24, Alkaline Phosphatase 63, Total Creatine Kinase 782H, Total Protein 6.5L, Albumin 3.5, Globulin 3.0, Albumin/Globulin Ratio 1.1, Vitamin D 25-Hydroxy [Pending], 25-Hydroxy Vitamin D2 [Pending], 25- Hydroxy Vitamin D3 [Pending] Current Medications Medications (Trade) Dose Ordered Sig/Taiwo Route PRN Reason Start Time Stop Time Status Last Admin Dose Admin Acetaminophen (Tylenol) 650 mg Q4H PRN ORAL fever 08/10/16 07:00 09/09/16 06:59 Al Hydroxide/Mg Hydroxide (Mylanta II) 30 ml Q6H PRN ORAL dyspepsia 08/10/16 07:00 09/09/16 06:59 Dextrose (Dextrose 50%) STAT PRN IV Hypoglycemia 08/10/16 07:00 09/09/16 06:59 Fluticasone Propionate (Flonase) 2 spray DAILY NASAL 08/10/16 09:00 09/09/16 08:59 Heparin Sodium (Porcine) (Heparin 5000 units/ml) 5,000 units EVERY 12 HOURS SUBQ 08/10/16 09:00 09/09/16 08:59 08/11/16 10:49 Lorazepam (Ativan 2mg/ml 1ml) 0.4 mg Q4H PRN IM Agitation 08/10/16 12:15 08/17/16 12:14 08/11/16 16:13 Morphine Sulfate (Morphine Sulfate) 2 mg EVERY 4 HOURS PRN IVP For Pain 4-6 08/10/16 07:00 08/17/16 06:59 08/11/16 02:05 Morphine Sulfate (Morphine Sulfate) 2 mg Q4H PRN SUBQ For Pain 08/10/16 12:15 08/17/16 12:14 08/11/16 20:17 Ondansetron HCl (Zofran) 4 mg Q6H PRN IVP Nausea & Vomiting 08/10/16 07:00 09/09/16 06:59 Oxycodone HCl (Roxicodone) 10 mg EVERY 8 HOURS ORAL 08/10/16 14:00 08/17/16 13:59 08/11/16 22:05 Polyethylene Glycol (Miralax) 17 gm HSPRN PRN ORAL Constipation 08/10/16 07:00 09/09/16 06:59 Sodium Chloride (Sodium Chloride 1000ml bag) 1,000 ml @ 75 mls/hr [id number] IVLG 08/12/16 06:00 09/11/16 05:59 Zolpidem Tartrate 5 mg 5 mg HSPRN PRN ORAL Insomnia 08/10/16 07:00 09/09/16 06:59 KYRA MOMIN Aug 11, 2016 22:36
--- NOTE | 2016-08-11 23:58 | Cardiology Progress Note ---
Assessment/Plan Assessment/Plan 1. Accelerated HTN, will continue to monitor. 2. Clear for the right hip surgery. Subjective Subjective Denies any chest pain or SOB. Objective Last 24 Hour Vital Signs Date Time Temp Pulse Resp B/P Pulse Ox O2 Delivery O2 Flow Rate FiO2 08/11/16 20:47 97.4 08/11/16 20:00 98.1 80 20 117/79 90 Room Air 08/11/16 16:11 97.4 78 19 113/61 90 Room Air 08/11/16 12:00 98.0 86 20 127/64 95 Room Air 08/11/16 08:00 98.0 105 20 147/88 96 Nasal Cannula 2.0 08/11/16 06:25 97.3 84 20 158/55 98 Nasal Cannula 2.0 08/11/16 02:35 98.2 08/11/16 00:00 98.2 104 20 139/72 96 Nasal Cannula 2.0 Intake and Output 08/10/16 08/11/16 19:00 07:00 Intake Total 540 ml Output Total 400 ml Balance 140 ml Intake Oral 540 ml Output Urine Total 400 ml 2D Echo: Overall good LV systolic function, Mild MR EF Laboratory Tests Test 08/11/16 07:45 White Blood Count 11.7 K/UL (4.8-10.8) H Red Blood Count 3.49 M/UL (4.20-5.40) L Hemoglobin 10.7 G/DL (12.0-16.0) L Hematocrit 32.4 % (37.0-47.0) L Mean Corpuscular Volume 93 FL (80-99) Mean Corpuscular Hemoglobin 30.6 PG (27.0-31.0) Mean Corpuscular Hemoglobin Concent 33.0 G/DL (32.0-36.0) Red Cell Distribution Width 13.3 % (11.6-14.8) Platelet Count 284 K/UL (150-450) Mean Platelet Volume 7.1 FL (6.5-10.1) Neutrophils (%) (Auto) 74.4 % (45.0-75.0) Lymphocytes (%) (Auto) 14.0 % (20.0-45.0) L Monocytes (%) (Auto) 11.1 % (1.0-10.0) H Eosinophils (%) (Auto) 0.0 % (0.0-3.0) Basophils (%) (Auto) 0.5 % (0.0-2.0) Sodium Level 139 mEQ/L (135-145) Potassium Level 5.1 mEQ/L (3.4-4.9) H Chloride Level 99 mEQ/L (98-107) Carbon Dioxide Level 25 mEQ/L (20-30) Anion Gap 15 (5-15) Blood Urea Nitrogen 43 mg/dL (7-23) H Creatinine 0.9 mg/dL (0.5-0.9) Estimat Glomerular Filtration Rate mL/min (>60) Glucose Level 133 mg/dL (74-106) H Calcium Level 8.6 mg/dL (8.6-10.2) Total Bilirubin 0.7 mg/dL (0.0-1.2) Aspartate Amino Transf (AST/SGOT) 47 U/L (5-40) H Alanine Aminotransferase (ALT/SGPT) 24 U/L (3-33) Alkaline Phosphatase 63 U/L (35-104) Total Creatine Kinase 782 U/L (26-140) H Total Protein 6.5 g/dL (6.6-8.7) L Albumin 3.5 g/dL (3.5-5.2) Globulin 3.0 g/dL Albumin/Globulin Ratio 1.1 (1.0-2.7) Vitamin D 25-Hydroxy Pending 25-Hydroxy Vitamin D2 Pending 25-Hydroxy Vitamin D3 Pending Objective HEENT: Atraumatic and normocephalic. Anicteric. Pupils are equal, round, and accommodation. Dry mucosal membranes. Pupils are equal, round, and reactive to light and accommodation. Extraocular muscles intact. NECK: JVP is less than 5 cm. No carotid bruits. Carotid upstrokes 2+ bilaterally. CARDIOVASCULAR: Normal S1, S2. Irregularly irregular rhythm. A 2/6 mid systolic murmur in the left sternal border. PMI is at fourth intercostal space in the midclavicular line. LUNGS: Clear to auscultation bilaterally. ABDOMEN: Soft, nontender, and nondistended. No hepatosplenomegaly. Positive bowel sounds. EXTREMITIES: Left leg appears to be shorter. There is some cyanotic appearances of the toes. There is left leg and external rotation position. Tenderness over the left hip. DILLAN,VINH Aug 11, 2016 23:58
[2016-08-12] VITALS (11 sets, daily range): BP systolic 112–144; BP diastolic 69–89
[2016-08-12] MEDS: Morphine Sulfate 2mg/ml Inj IVP PRN (02:43)
[2016-08-12] MEDS: oxyCODONE 5mg IR tab ORAL SCH ×3 (06:15→21:23)
[2016-08-12] MEDS: Heparin 5000 units/ml inj SUBQ SCH (06:59)
[2016-08-12] MEDS: LORazepam Inj 2mg/ml 1ml IM PRN ×2 (07:35→13:18)
--- NOTE | 2016-08-12 08:33 | Diagnostic Imaging Report ---
Indication: Shortness of breath Technique: XRAY CHEST 1 V Comparison: None Findings: Cardiac silhouette is prominent. There is a large hiatal hernia. A right-sided aortic arch is suggested. The left bases not included. There is no gross consolidation. There is an old fracture deformity with hardware of the right proximal humerus. Impression: Technically limited examination secondary to positioning. No gross acute cardiopulmonary disease. Large hiatal hernia. Other findings as above. Repeat imaging may be considered as indicated.
--- NOTE | 2016-08-12 08:34 | Diagnostic Imaging Report ---
Indication: Left hip trauma Technique: CT left hip was performed utilizing automated exposure control without intravenous contrast material. Axial and coronal images were generated. CT dose: Total DLP 159 mGycm; CTDI vol 7.7 mGy Findings: There is a comminuted left proximal femoral intratrochanteric fracture involving the lesser and greater tuberosities with angulation and impaction. There is no left hip dislocation. Atherosclerotic changes are seen. Melgar catheter is noted. There is a vaginal pessary. Colonic diverticula are present. Impression: Comminuted left proximal femoral intratrochanteric fracture with angulation and impaction. The CT scanner at [facility] is accredited by the [employer] and the scans are performed using protocols designed to limit radiation exposure to as low as reasonably achievable to attain images of sufficient resolution adequate for diagnostic evaluation.
[2016-08-12] MEDS: Flonase Nasal Inhaler 16gm NASAL SCH (09:00)
[2016-08-12] MEDS: Morphine Sulfate 2mg/ml Inj SUBQ PRN (10:18)
[2016-08-12 10:19] LABS: BASOPHILS % (AUTO) 0.7 % (0.0-2.0); LYMPHOCYTES % (AUTO) 9.8 % (20.0-45.0); MEAN CORPUSCULAR HEMOGLOBIN 30.8 PG (27.0-31.0); MEAN CORPUSCULAR HGB CONC 33.1 G/DL (32.0-36.0); MEAN CORPUSCULAR VOLUME 93 FL (80-99); MONOCYTES % (AUTO) 11.2 % (1.0-10.0); NEUTROPHILS % (AUTO) 78.2 % (45.0-75.0); PLATELET COUNT 235 K/UL (150-450); RED BLOOD COUNT 3.33 M/UL (4.20-5.40); RED CELL DISTRIBUTION WIDTH 12.8 % (11.6-14.8); WHITE BLOOD COUNT 11.3 K/UL (4.8-10.8)
[2016-08-12 10:33] LABS: ANION GAP 18 (5-15); CALCIUM 8.5 mg/dL (8.6-10.2); CARBON DIOXIDE 24 mEQ/L (20-30); CHLORIDE 95 mEQ/L (98-107); CREATININE 0.7 mg/dL (0.5-0.9); HEMOLYSIS 10; POTASSIUM 4.8 mEQ/L (3.4-4.9); SODIUM 137 mEQ/L (135-145)
--- NOTE | 2016-08-12 13:33 | Diagnostic Imaging Report ---
Indication: Cough Technique: One view of the chest Comparison: 08/12/2016 Findings: Large hiatal hernia is again demonstrated. The lungs and pleural spaces are clear except for minimal atelectasis at the left lung base. Left shoulder hardware is again demonstrated. Findings are unchanged Impression: Unchanged, over 2 days, findings as above.
--- NOTE | 2016-08-12 14:02 | General Progress Note ---
Assessment/Plan Problem List: (1) Laceration of forearm, left ICD Codes: S51.812A - Laceration without foreign body of left forearm, initial encounter SNOMED: 901258340, 539427599 Qualifiers: Qualified Codes: S51.812A - Laceration without foreign body of left forearm , initial encounter (2) Fall ICD Codes: W19.XXXA - Unspecified fall, initial encounter SNOMED: 7036519, 578281228 Qualifiers: Qualified Codes: W19.XXXA - Unspecified fall, initial encounter (3) Dementia ICD Codes: F03.90 - Unspecified dementia without behavioral disturbance SNOMED: 31491009 (4) Severe protein-calorie malnutrition ICD Codes: E43 - Unspecified severe protein-calorie malnutrition SNOMED: 062653705 (5) Closed intertrochanteric fracture of left hip ICD Codes: S72.142A - Displaced intertrochanteric fracture of left femur, initial encounter for closed fracture SNOMED: 24584577 Qualifiers: Qualified Codes: S72.142A - Displaced intertrochanteric fracture of left femur, initial encounter for closed fracture (6) Azotemia ICD Codes: R79.89 - Other specified abnormal findings of blood chemistry SNOMED: 147234385 Status: stable, progressing, tolerating diet Assessment/Plan ot pt diet abx cbc bmp am pending ortho sx aru eval Subjective Constitutional: Reports: weakness Allergies: Coded Allergies: DIAZEPAM (Verified Allergy, Unknown, 08/10/16) ERYTHROMYCIN BASE (Verified Allergy, Unknown, 08/10/16) LATEX (Verified Allergy, Unknown, 08/10/16) MEPERIDINE (Verified Allergy, Unknown, 08/10/16) MOXIFLOXACIN (Verified Allergy, Unknown, 08/10/16) PENICILLINS (Verified Allergy, Unknown, 08/10/16) THIOPENTAL (Verified Allergy, Unknown, 08/10/16) Uncoded Allergies: iv dye (Allergy, Unknown, 08/10/16) All Systems: reviewed and negative except above Subjective sleepy calm Objective Last 24 Hour Vital Signs Date Time Temp Pulse Resp B/P Pulse Ox O2 Delivery O2 Flow Rate FiO2 08/12/16 10:48 96.3 08/12/16 06:11 96.3 92 18 131/69 95 Room Air 08/12/16 03:13 97.4 08/11/16 20:00 98.1 80 20 117/79 90 Room Air 08/11/16 16:11 97.4 78 19 113/61 90 Room Air Intake and Output 08/11/16 08/12/16 19:00 07:00 Intake Total 240 ml 480 ml Output Total 200 ml 225 ml Balance 40 ml 255 ml Intake Oral 240 ml 480 ml Output Urine Total 200 ml 225 ml # Voids 1 Laboratory Tests 08/12/16 10:00: White Blood Count 11.3H, Red Blood Count 3.33L, Hemoglobin 10.3L, Hematocrit 31.0L, Mean Corpuscular Volume 93, Mean Corpuscular Hemoglobin 30.8, Mean Corpuscular Hemoglobin Concent 33.1, Red Cell Distribution Width 12.8, Platelet Count 235, Mean Platelet Volume 7.0, Neutrophils (%) (Auto) 78.2H, Lymphocytes ( %) (Auto) 9.8L, Monocytes (%) (Auto) 11.2H, Eosinophils (%) (Auto) 0.0, Basophils (%) (Auto) 0.7, Sodium Level 137, Potassium Level 4.8, Chloride Level 95L, Carbon Dioxide Level 24, Anion Gap 18H, Blood Urea Nitrogen 35H, Creatinine 0.7, Estimat Glomerular Filtration Rate , Glucose Level 107H, Calcium Level 8.5L Height (Feet): 5 Height (Inches): 0.00 Weight (Pounds): 91 General Appearance: lethargic EENT: normal ENT inspection Neck: normal alignment Cardiovascular: normal peripheral pulses, normal rate, regular rhythm Respiratory/Chest: chest wall non-tender, lungs clear, normal breath sounds Abdomen: normal bowel sounds, non tender, soft Extremities: normal inspection Edema: no edema noted Arm (L), no edema noted Arm (R), no edema noted Leg (L), no edema noted Leg (R), no edema noted Pedal (L), no edema noted Pedal (R), no edema noted Generalized Neurologic: responsive, motor weakness Skin: normal pigmentation, warm/dry ZARA MAS Aug 12, 2016 14:02
--- NOTE | 2016-08-12 14:31 | Immediate Post-Op Evaluation ---
Immediate Post-Op Evalulation Immediate Post-Op Evalulation Procedure: ORIF left hip fracture Date of Evaluation: Aug 12, 2016 Time of Evaluation: 18:10 IV Fluids: 500 Estimated Blood Loss: 50 Urinary Output: 125 Blood Pressure Systolic: 125 Blood Pressure Diastolic: 79 Pulse Rate: 101 Respiratory Rate: 16 O2 Sat by Pulse Oximetry: 100 Temperature (Fahrenheit): 97.9 Pain Score (1-10): 0 Nausea: No Vomiting: No Complications No complication Patient Status: reacts, patent, none Hydration Status: adequate Drug: Clindamycin Time Given: 17:45 LORY GUERRA M.D. Aug 12, 2016 14:31
--- NOTE | 2016-08-12 14:31 | Anethesia Preoperative Eval ---
Anesthesia Pre-op PMH/ROS General Date of Evaluation: Aug 12, 2016 Time of Evaluation: 14:25 Anesthesiologist: Syl ASA Score: ASA 3 Mallampati Score Class I : Soft palate, uvula, fauces, pillars visible Class II: Soft palate, uvula, fauces visible Class III: Soft palate, base of uvula visible Class IV: Only hard plate visible Mallampati Classification: Class II Surgeon: Oscar Diagnosis: Left hip fracture Surgical Procedure: ORIF left hip Family History: no anesthesia problems Allergies: Coded Allergies: DIAZEPAM (Verified Allergy, Unknown, 08/10/16) ERYTHROMYCIN BASE (Verified Allergy, Unknown, 08/10/16) LATEX (Verified Allergy, Unknown, 08/10/16) MEPERIDINE (Verified Allergy, Unknown, 08/10/16) MOXIFLOXACIN (Verified Allergy, Unknown, 08/10/16) PENICILLINS (Verified Allergy, Unknown, 08/10/16) THIOPENTAL (Verified Allergy, Unknown, 08/10/16) Uncoded Allergies: iv dye (Allergy, Unknown, 08/10/16) Medications: see eMAR Past Medical History Cardiovascular: Reports: CAD, HTN, arrhythmia - tachycardia Pulmonary: Denies: COPD, JOSE, asthma, other Gastrointestinal/Genitourinary: Denies: CRI, ESRD, GERD, other Neurologic/Psychiatric: Reports: dementia - Presently mild PMH Narrative: CAD (anteroseptal MO according to EKG), HTN this hospital visit, some memory deficits PSxH Narrative: Shoulder, cervical fusion Anesthesia Pre-op Phys. Exam Physician Exam Last Vital Signs Date Time Temp Pulse Resp B/P Pulse Ox O2 Delivery O2 Flow Rate FiO2 08/12/16 14:09 97.0 79 20 138/79 95 Room Air 08/11/16 16:11 Constitutional: NAD Neurologic: CN 2-12 intact Cardiovascular: RRR, no M/R/G Respiratory: CTA Gastrointestinal: S/NT/ND Airway Exam Mallampati Score: Class II MO: full ROM: full Teeth: intact Anesthesia Pre-op A/P Labs Hematology Test 08/12/16 10:00 White Blood Count 11.3 K/UL (4.8-10.8) H Red Blood Count 3.33 M/UL (4.20-5.40) L Hemoglobin 10.3 G/DL (12.0-16.0) L Hematocrit 31.0 % (37.0-47.0) L Mean Corpuscular Volume 93 FL (80-99) Mean Corpuscular Hemoglobin 30.8 PG (27.0-31.0) Mean Corpuscular Hemoglobin Concent 33.1 G/DL (32.0-36.0) Red Cell Distribution Width 12.8 % (11.6-14.8) Platelet Count 235 K/UL (150-450) Mean Platelet Volume 7.0 FL (6.5-10.1) Neutrophils (%) (Auto) 78.2 % (45.0-75.0) H Lymphocytes (%) (Auto) 9.8 % (20.0-45.0) L Monocytes (%) (Auto) 11.2 % (1.0-10.0) H Eosinophils (%) (Auto) 0.0 % (0.0-3.0) Basophils (%) (Auto) 0.7 % (0.0-2.0) Chemistry Test 08/12/16 10:00 Sodium Level 137 mEQ/L (135-145) Potassium Level 4.8 mEQ/L (3.4-4.9) Chloride Level 95 mEQ/L (98-107) L Carbon Dioxide Level 24 mEQ/L (20-30) Anion Gap 18 (5-15) H Blood Urea Nitrogen 35 mg/dL (7-23) H Creatinine 0.7 mg/dL (0.5-0.9) Estimat Glomerular Filtration Rate mL/min (>60) Glucose Level 107 mg/dL (74-106) H Calcium Level 8.5 mg/dL (8.6-10.2) L Studies Pre-op Studies: EKG - Sinus tach, q waves in V1, V2 and ?V3? Risk Assessment & Plan Assessment: Left intertrochanteric fracture Plan: GA, LMA Status Change Before Surgery: No Pre-Antibiotics Drug: Clindamycin Given Within 1 Hr of Incision: Yes Time Given: 17:00 LORY GUERRA M.D. Aug 12, 2016 14:31
[2016-08-12] MEDS ORDERED: Bupivacaine w/Epi 0.5% 30ml Vial INJ ONE (14:59)
[2016-08-12] MEDS ORDERED: Bacitracin 50000 Units Vial ONE (14:59)
[2016-08-12] MEDS ORDERED: Clindamycin 600mg 50 ML IV ONE (15:20)
--- NOTE | 2016-08-12 15:39 | Nephrology Progress Note ---
Assessment/Plan Assessment 1. Hypocalcemia. 2. Prerenal azotemia. 3. Hematuria. 4. Elevated blood sugar, diabetes is a possibility. 5. Uncontrolled blood pressure. Plan plan continue ivf replace electrolyte as need monitoring renal function avoid NSAID Subjective Constitutional: Reports: no symptoms HEENT: Reports: no symptoms Genitourinary: Reports: no symptoms Neurologic/Psychiatric: Reports: no symptoms Subjective awake confused more comfortable Objective Objective Last 24 Hour Vital Signs Date Time Temp Pulse Resp B/P Pulse Ox O2 Delivery O2 Flow Rate FiO2 08/12/16 14:09 97.0 79 20 138/79 95 Room Air 08/12/16 10:48 96.3 08/12/16 06:11 96.3 92 18 131/69 95 Room Air 08/12/16 03:13 97.4 08/11/16 20:00 98.1 80 20 117/79 90 Room Air 08/11/16 16:11 97.4 78 19 113/61 90 Room Air Intake and Output 08/11/16 08/12/16 19:00 07:00 Intake Total 240 ml 480 ml Output Total 200 ml 225 ml Balance 40 ml 255 ml Intake Oral 240 ml 480 ml Output Urine Total 200 ml 225 ml # Voids 1 Laboratory Tests 08/12/16 10:00: White Blood Count 11.3H, Red Blood Count 3.33L, Hemoglobin 10.3L, Hematocrit 31.0L, Mean Corpuscular Volume 93, Mean Corpuscular Hemoglobin 30.8, Mean Corpuscular Hemoglobin Concent 33.1, Red Cell Distribution Width 12.8, Platelet Count 235, Mean Platelet Volume 7.0, Neutrophils (%) (Auto) 78.2H, Lymphocytes ( %) (Auto) 9.8L, Monocytes (%) (Auto) 11.2H, Eosinophils (%) (Auto) 0.0, Basophils (%) (Auto) 0.7, Sodium Level 137, Potassium Level 4.8, Chloride Level 95L, Carbon Dioxide Level 24, Anion Gap 18H, Blood Urea Nitrogen 35H, Creatinine 0.7, Estimat Glomerular Filtration Rate , Glucose Level 107H, Calcium Level 8.5L Height (Feet): 5 Height (Inches): 0.00 Weight (Pounds): 91 Objective HEAD AND NECK: No JVD. No LAD. No thyromegaly. Extraocular movement intact. Pupils are reactive to light and accommodation. LUNGS: Clear to auscultation. CARDIAC: Regular rate and rhythm. S1-S2. No murmur. No rub. ABDOMEN: Soft, nontender, and nondistended. EXTREMITIES: The patient's left hip is internally rotated with severe pain to touch. KATT LAURENT Aug 12, 2016 15:39
[2016-08-12] MEDS ORDERED: fentaNYL 100 mcg/2 mL IV ONE (16:20)
[2016-08-12] MEDS ORDERED: Midazolam 2mg/2ml Inj ONE (16:20)
[2016-08-12] MEDS ORDERED: LR 1000ml ONE (16:20)
[2016-08-12] MEDS ORDERED: Propofol 10mg/ml 20ml IV ONE (16:20)
--- NOTE | 2016-08-12 16:57 | Pre-Procedure Note/Attestation ---
Pre-Procedure Note/Attestation Complete Prior to Procedure Planned Procedure: left Procedure Narrative: left hip ORIF Indications for Procedure Pre-Operative Diagnosis: Left hip Fracture Attestation I attest that I discussed the nature of the procedure; its benefits; risks and complications; and alternatives (and the risks and benefits of such alternatives ), prior to the procedure, with the patient (or the patient's legal outside dealer sales representative). I attest that, if there was a reasonable possibility of needing a blood transfusion, the patient (or the patient's legal outside dealer sales representative) was given the [facility] standardized written summary, pursuant to the [place] Blood Safety Act ([place] Health and Safety Code # 1645, as amended). I attest that I re-evaluated the patient just prior to the surgery and that there has been no change in the patient's H&P, except as documented below: NONE HELEN MYRICK Aug 12, 2016 16:57
[2016-08-12] MEDS ORDERED: D5 1/2NS w/KCl 20mEq 1,000 ML IV SCH (17:02)
[2016-08-12] MEDS ORDERED: HYDROmorphone 1mg/ml Carpuject SUBQ PRN (17:15)
[2016-08-12] MEDS ORDERED: LR 1000ml 1,000 ML IVLG SCH (17:38)
[2016-08-12] MEDS ORDERED: Hydromorphone 0.5mg/0.5ml inj IVP PRN (17:45)
[2016-08-12] MEDS ORDERED: LORazepam Inj 2mg/ml 1ml IV PRN (17:45)
[2016-08-12] MEDS ORDERED: DiphenhydrAMINE 50mg/ml Inj IVP PRN (17:45)
--- NOTE | 2016-08-12 17:51 | Brief Operative Note ---
Immediate Post Operative Note Operative Note Chief Complaint: left hip pain Pre-op Diagnosis: left hip fracture Procedure: left hip ORIF Post-op Diagnosis: same as pre-op Findings: consistent w/pre-op dx studies Surgeon: md alyssia [employer] Team Member: mikal hitchcock Anesthesiologist: md eduar Anesthesia: general Specimen: none Complications: none Condition: stable Estimated Blood Loss: minimal Drains: none Implant(s) used?: Yes - CELIA Del Real Aug 12, 2016 17:51
[2016-08-12] MEDS: HYDROmorphone 1mg/ml Carpuject SUBQ PRN (20:42)
[2016-08-12] MEDS: Docusate 100mg tablet ORAL SCH (20:49)
[2016-08-12] MEDS: D5 1/2NS w/KCl 20mEq 1,000 ML IV SCH (21:23)
--- NOTE | 2016-08-12 22:55 | Cardiology Progress Note ---
Assessment/Plan Assessment/Plan 1. Accelerated HTN, BP currently within normal limits, will continue to monitor. 2. S/P left Hip ORIF, POD # 0, no perioperative cardiac events. Subjective Subjective Denies any chest pain or SOB. Not on tele unit. Objective Last 24 Hour Vital Signs Date Time Temp Pulse Resp B/P Pulse Ox O2 Delivery O2 Flow Rate FiO2 08/12/16 21:22 96.4 08/12/16 20:36 96.4 96 20 138/76 93 Room Air 08/12/16 19:15 96.8 103 20 112/71 95 Nasal Cannula 3.0 08/12/16 18:55 102 22 143/75 99 Nasal Cannula 3.0 08/12/16 18:40 99 16 138/80 96 Nasal Cannula 3.0 08/12/16 18:25 93 25 144/89 100 Nasal Cannula 3.0 08/12/16 18:10 97 24 121/75 100 Simple Mask 6.0 08/12/16 18:07 101 16 100 08/12/16 18:05 100 22 125/73 100 Simple Mask 6.0 08/12/16 18:00 97.9 99 19 128/79 100 Simple Mask 6.0 08/12/16 14:09 97.0 79 20 138/79 95 Room Air 08/12/16 10:48 96.3 08/12/16 06:11 96.3 92 18 131/69 95 Room Air 08/12/16 03:13 97.4 Intake and Output 08/11/16 08/12/16 19:00 07:00 Intake Total 240 ml 480 ml Output Total 200 ml 225 ml Balance 40 ml 255 ml Intake Oral 240 ml 480 ml Output Urine Total 200 ml 225 ml # Voids 1 2D Echo: LVEF 60-65%, Mild LVH, Mild AR Laboratory Tests Test 08/12/16 10:00 White Blood Count 11.3 K/UL (4.8-10.8) H Red Blood Count 3.33 M/UL (4.20-5.40) L Hemoglobin 10.3 G/DL (12.0-16.0) L Hematocrit 31.0 % (37.0-47.0) L Mean Corpuscular Volume 93 FL (80-99) Mean Corpuscular Hemoglobin 30.8 PG (27.0-31.0) Mean Corpuscular Hemoglobin Concent 33.1 G/DL (32.0-36.0) Red Cell Distribution Width 12.8 % (11.6-14.8) Platelet Count 235 K/UL (150-450) Mean Platelet Volume 7.0 FL (6.5-10.1) Neutrophils (%) (Auto) 78.2 % (45.0-75.0) H Lymphocytes (%) (Auto) 9.8 % (20.0-45.0) L Monocytes (%) (Auto) 11.2 % (1.0-10.0) H Eosinophils (%) (Auto) 0.0 % (0.0-3.0) Basophils (%) (Auto) 0.7 % (0.0-2.0) Sodium Level 137 mEQ/L (135-145) Potassium Level 4.8 mEQ/L (3.4-4.9) Chloride Level 95 mEQ/L (98-107) L Carbon Dioxide Level 24 mEQ/L (20-30) Anion Gap 18 (5-15) H Blood Urea Nitrogen 35 mg/dL (7-23) H Creatinine 0.7 mg/dL (0.5-0.9) Estimat Glomerular Filtration Rate mL/min (>60) Glucose Level 107 mg/dL (74-106) H Calcium Level 8.5 mg/dL (8.6-10.2) L Objective HEENT: Atraumatic and normocephalic. Anicteric. Pupils are equal, round, and accommodation. Dry mucosal membranes. Pupils are equal, round, and reactive to light and accommodation. Extraocular muscles intact. NECK: JVP is less than 5 cm. No carotid bruits. Carotid upstrokes 2+ bilaterally. CARDIOVASCULAR: Normal S1, S2. Irregularly irregular rhythm. A 2/6 mid systolic murmur in the left sternal border. PMI is at fourth intercostal space in the midclavicular line. LUNGS: Clear to auscultation bilaterally. ABDOMEN: Soft, nontender, and nondistended. No hepatosplenomegaly. Positive bowel sounds. EXTREMITIES: No edema, clubbing or cyanosis right leg. VINH GRIMALDO Aug 12, 2016 22:55
--- NOTE | 2016-08-12 23:19 | Pulmonology Progress Note ---
Assessment/Plan Problems: (1) Severe protein-calorie malnutrition (2) Azotemia (3) Dementia (4) Closed intertrochanteric fracture of left hip Assessment/Plan PLAN Fall precautions PT/OT UA with evidence of UTI continue Bactrim urine cx + E coli ID follows Subjective ROS Limited/Unobtainable: Yes Constitutional: Reports: anorexia, fatigue Neurologic: Reports: confusion, weakness Allergies: Coded Allergies: SULFAMETHOXAZOLE (Verified Allergy, Mild, itching, 08/19/16) TRIMETHOPRIM (Verified Allergy, Mild, itching, 08/19/16) DIAZEPAM (Verified Allergy, Unknown, 08/10/16) ERYTHROMYCIN BASE (Verified Allergy, Unknown, 08/10/16) LATEX (Verified Allergy, Unknown, 08/10/16) MEPERIDINE (Verified Allergy, Unknown, 08/10/16) MOXIFLOXACIN (Verified Allergy, Unknown, 08/10/16) PENICILLINS (Verified Allergy, Unknown, 08/10/16) THIOPENTAL (Verified Allergy, Unknown, 08/10/16) Uncoded Allergies: iv dye (Allergy, Unknown, 08/10/16) Objective Last 24 Hour Vital Signs Date Time Temp Pulse Resp B/P Pulse Ox O2 Delivery O2 Flow Rate FiO2 08/12/16 21:22 96.4 08/12/16 20:36 96.4 96 20 138/76 93 Room Air 08/12/16 19:15 96.8 103 20 112/71 95 Nasal Cannula 3.0 08/12/16 18:55 102 22 143/75 99 Nasal Cannula 3.0 08/12/16 18:40 99 16 138/80 96 Nasal Cannula 3.0 08/12/16 18:25 93 25 144/89 100 Nasal Cannula 3.0 08/12/16 18:10 97 24 121/75 100 Simple Mask 6.0 08/12/16 18:07 101 16 100 08/12/16 18:05 100 22 125/73 100 Simple Mask 6.0 08/12/16 18:00 97.9 99 19 128/79 100 Simple Mask 6.0 08/12/16 14:09 97.0 79 20 138/79 95 Room Air 08/12/16 10:48 96.3 08/12/16 06:11 96.3 92 18 131/69 95 Room Air 08/12/16 03:13 97.4 Intake and Output 08/11/16 08/12/16 19:00 07:00 Intake Total 240 ml 480 ml Output Total 200 ml 225 ml Balance 40 ml 255 ml Intake Oral 240 ml 480 ml Output Urine Total 200 ml 225 ml # Voids 1 General Appearance: no acute distress HEENT: normocephalic, atraumatic, PERRL Respiratory/Chest: chest wall non-tender, decreased breath sounds, accessory muscle use Breasts: no masses Cardiovascular: normal peripheral pulses, normal rate, regular rhythm, no JVD Abdomen: normal bowel sounds, soft, non tender, no organomegaly, non distended Genitourinary: normal external genitalia Extremities: no cyanosis Skin: no rash Neurologic/Psychiatric: program development manager II-XII grossly normal, responsive, disoriented Laboratory Tests 08/12/16 10:00: White Blood Count 11.3H, Red Blood Count 3.33L, Hemoglobin 10.3L, Hematocrit 31.0L, Mean Corpuscular Volume 93, Mean Corpuscular Hemoglobin 30.8, Mean Corpuscular Hemoglobin Concent 33.1, Red Cell Distribution Width 12.8, Platelet Count 235, Mean Platelet Volume 7.0, Neutrophils (%) (Auto) 78.2H, Lymphocytes ( %) (Auto) 9.8L, Monocytes (%) (Auto) 11.2H, Eosinophils (%) (Auto) 0.0, Basophils (%) (Auto) 0.7, Sodium Level 137, Potassium Level 4.8, Chloride Level 95L, Carbon Dioxide Level 24, Anion Gap 18H, Blood Urea Nitrogen 35H, Creatinine 0.7, Estimat Glomerular Filtration Rate , Glucose Level 107H, Calcium Level 8.5L Current Medications Medications (Trade) Dose Ordered Sig/Taiwo Route PRN Reason Start Time Stop Time Status Last Admin Dose Admin Acetaminophen (Tylenol) 650 mg Q4H PRN ORAL fever 08/10/16 07:00 09/09/16 06:59 Acetaminophen (Tylenol) 650 mg Q4H PRN ORAL Mild Pain (Pain Scale 1-3) 08/12/16 17:15 09/11/16 17:14 Acetaminophen/ Hydrocodone Bitart ([place] 7.5/325) 1 ea Q4H PRN ORAL Moderate Pain (Pain Scale 4-6) 08/12/16 17:15 4/3/17 17:14 Al Hydroxide/Mg Hydroxide (Mylanta II) 30 ml Q6H PRN ORAL dyspepsia 08/10/16 07:00 09/09/16 06:59 Bisacodyl (Dulcolax) 10 mg Q12H PRN RECTAL Constipation FIRST [employer] AGENT 08/12/16 17:15 09/11/16 17:14 Celecoxib (CeleBREX) 200 mg DAILY ORAL 08/13/16 09:00 09/12/16 08:59 Clindamycin HCl/ Dextrose (Cleocin 600mg) 50 ml @ 50 mls/hr EVERY 6 HOURS IV 08/13/16 00:00 08/13/16 18:59 Dextrose (Dextrose 50%) STAT PRN IV Hypoglycemia 08/10/16 07:00 09/09/16 06:59 Dextrose/ Electrolytes 1,000 ml @ 75 mls/hr [id number] IV 08/12/16 21:00 09/11/16 20:59 08/12/16 21:23 Docusate Sodium (Colace) 100 mg THREE TIMES A DAY ORAL 08/12/16 21:00 09/11/16 20:59 Enoxaparin Sodium (Lovenox) 30 mg DAILY SUBQ 08/13/16 09:00 08/23/16 08:59 Ferrous Sulfate (Feosol) 325 mg THREE TIMES A DAY ORAL 08/12/16 21:00 09/11/16 20:59 Fluticasone Propionate (Flonase) 2 spray DAILY NASAL 08/10/16 09:00 09/09/16 08:59 Hydromorphone HCl (Dilaudid) 1 mg Q4H PRN SUBQ Severe Pain (Pain Scale 7-10) 08/12/16 20:30 08/19/16 20:29 08/12/16 20:42 Lorazepam 0.4 mg 0.4 mg Q4H PRN IM Agitation 08/10/16 12:15 08/17/16 12:14 08/12/16 13:18 Ondansetron HCl (Zofran) 4 mg Q6H PRN IVP Nausea & Vomiting 08/10/16 07:00 09/09/16 06:59 Oxycodone HCl (Roxicodone) 10 mg EVERY 8 HOURS ORAL 08/10/16 14:00 08/17/16 13:59 08/12/16 06:15 Polyethylene Glycol (Miralax) 17 gm HSPRN PRN ORAL Constipation 08/10/16 07:00 09/09/16 06:59 Zolpidem Tartrate (Ambien) 5 mg HSPRN PRN ORAL Insomnia 08/10/16 07:00 09/09/16 06:59 KYRA MOMIN Aug 12, 2016 23:19
[2016-08-13] VITALS: BP 116/53
[2016-08-13] MEDS: Clindamycin 600mg 50 ML IV SCH ×4 (00:20→18:35)
[2016-08-13] MEDS: HYDROmorphone 1mg/ml Carpuject SUBQ PRN ×3 (00:44→08:19)
[2016-08-13] MEDS: D5 1/2NS w/KCl 20mEq 1,000 ML IV SCH ×2 (03:00→11:59)
[2016-08-13 04:00] VITALS: BP 130/68
[2016-08-13] MEDS: oxyCODONE 5mg IR tab ORAL SCH ×3 (05:24→22:25)
[2016-08-13] MEDS: LORazepam Inj 2mg/ml 1ml IM PRN ×2 (06:47→12:37)
--- NOTE | 2016-08-13 07:34 | General Progress Note ---
Assessment/Plan Problem List: (1) Laceration of forearm, left ICD Codes: S51.812A - Laceration without foreign body of left forearm, initial encounter SNOMED: 047069220, 620662076 Qualifiers: Qualified Codes: S51.812A - Laceration without foreign body of left forearm , initial encounter (2) Fall ICD Codes: W19.XXXA - Unspecified fall, initial encounter SNOMED: 4485478, 123848344 Qualifiers: Qualified Codes: W19.XXXA - Unspecified fall, initial encounter (3) Dementia ICD Codes: F03.90 - Unspecified dementia without behavioral disturbance SNOMED: 59550871 (4) Severe protein-calorie malnutrition ICD Codes: E43 - Unspecified severe protein-calorie malnutrition SNOMED: 388699649 (5) Closed intertrochanteric fracture of left hip ICD Codes: S72.142A - Displaced intertrochanteric fracture of left femur, initial encounter for closed fracture SNOMED: 63533822 Qualifiers: Qualified Codes: S72.142A - Displaced intertrochanteric fracture of left femur, initial encounter for closed fracture (6) Azotemia ICD Codes: R79.89 - Other specified abnormal findings of blood chemistry SNOMED: 503651862 Status: stable, progressing, tolerating diet Assessment/Plan ot pt diet abx cbc bmp am dc plan Subjective Constitutional: Reports: weakness Allergies: Coded Allergies: DIAZEPAM (Verified Allergy, Unknown, 08/10/16) ERYTHROMYCIN BASE (Verified Allergy, Unknown, 08/10/16) LATEX (Verified Allergy, Unknown, 08/10/16) MEPERIDINE (Verified Allergy, Unknown, 08/10/16) MOXIFLOXACIN (Verified Allergy, Unknown, 08/10/16) PENICILLINS (Verified Allergy, Unknown, 08/10/16) THIOPENTAL (Verified Allergy, Unknown, 08/10/16) Uncoded Allergies: iv dye (Allergy, Unknown, 08/10/16) All Systems: reviewed and negative except above Subjective sleepy calm Objective Last 24 Hour Vital Signs Date Time Temp Pulse Resp B/P Pulse Ox O2 Delivery O2 Flow Rate FiO2 08/13/16 04:00 98.1 109 20 130/68 98 Nasal Cannula 08/13/16 00:00 98.1 111 22 116/53 92 Nasal Cannula 08/12/16 21:22 96.4 08/12/16 20:36 96.4 96 20 138/76 93 Room Air 08/12/16 19:15 96.8 103 20 112/71 95 Nasal Cannula 3.0 08/12/16 18:55 102 22 143/75 99 Nasal Cannula 3.0 08/12/16 18:40 99 16 138/80 96 Nasal Cannula 3.0 08/12/16 18:25 93 25 144/89 100 Nasal Cannula 3.0 08/12/16 18:10 97 24 121/75 100 Simple Mask 6.0 08/12/16 18:07 101 16 100 08/12/16 18:05 100 22 125/73 100 Simple Mask 6.0 08/12/16 18:00 97.9 99 19 128/79 100 Simple Mask 6.0 08/12/16 14:09 97.0 79 20 138/79 95 Room Air 08/12/16 10:48 96.3 Intake and Output 08/12/16 08/13/16 19:00 07:00 Intake Total 600 ml 637.5 ml Output Total 205 ml 325 ml Balance 395 ml 312.5 ml IV Total 600 ml 637.5 ml Output Urine Total 155 ml 325 ml Estimated Blood Loss 50 ml Laboratory Tests 08/12/16 10:00: White Blood Count 11.3H, Red Blood Count 3.33L, Hemoglobin 10.3L, Hematocrit 31.0L, Mean Corpuscular Volume 93, Mean Corpuscular Hemoglobin 30.8, Mean Corpuscular Hemoglobin Concent 33.1, Red Cell Distribution Width 12.8, Platelet Count 235, Mean Platelet Volume 7.0, Neutrophils (%) (Auto) 78.2H, Lymphocytes ( %) (Auto) 9.8L, Monocytes (%) (Auto) 11.2H, Eosinophils (%) (Auto) 0.0, Basophils (%) (Auto) 0.7, Sodium Level 137, Potassium Level 4.8, Chloride Level 95L, Carbon Dioxide Level 24, Anion Gap 18H, Blood Urea Nitrogen 35H, Creatinine 0.7, Estimat Glomerular Filtration Rate , Glucose Level 107H, Calcium Level 8.5L Height (Feet): 5 Height (Inches): 0.00 Weight (Pounds): 91 General Appearance: lethargic EENT: normal ENT inspection Neck: normal alignment Cardiovascular: normal peripheral pulses, normal rate, regular rhythm Respiratory/Chest: chest wall non-tender, lungs clear, normal breath sounds Abdomen: normal bowel sounds, non tender, soft Extremities: normal inspection Edema: no edema noted Arm (L), no edema noted Arm (R), no edema noted Leg (L), no edema noted Leg (R), no edema noted Pedal (L), no edema noted Pedal (R), no edema noted Generalized Neurologic: responsive, motor weakness Skin: normal pigmentation, warm/dry ZARA MAS Aug 13, 2016 07:34
[2016-08-13 08:00] VITALS: BP 112/58
--- NOTE | 2016-08-13 08:09 | Operative Note - Dictated ---
DATE OF OPERATION: 08/12/2016 PREOPERATIVE DIAGNOSIS: Left hip peritrochanteric comminuted fracture of the hip. POSTOPERATIVE DIAGNOSIS: Left hip peritrochanteric comminuted fracture of the hip. PROCEDURE: Left hip open reduction and internal fixation using a short gamma nail, 125 degrees. SURGEON: Pedro Moore M.D. CLIMATE CHANGE RISK ASSESSOR: Yesy Stovall PA-C. ANESTHESIOLOGIST: Dominic Streeter M.D. ANESTHESIA: LMA anesthesia. EBL: Less than 150 mL. COMPLICATIONS: None. BRIEF HISTORY: The patient is a pleasant 85-year-old female, who sustained a mechanical fall and landed on her left hip. She had significant hip fracture. She was optimized medically. After full discussion of the risks and benefits of the surgery and complications associated with it including infection, bleeding, neurovascular complication, possibility of continued pain, possibility of inability to walk, possible need to perform other surgeries down the line, possibility of malunion and nonunion, possibility of leg length discrepancy, inability to walk without a walker or any other assistive devices or may need to be wheelchair bound, she opted for surgical treatment as described above. OPERATIVE PROCEDURE: The patient was brought to the operating table and was placed supine. All pressure points were well padded. General LMA anesthesia was induced, and the patient was placed on a fracture table with the left leg in traction and the right leg in a well-leg rios. All pressure points were well padded. The left hip was then reduced using image intensifier, traction, adduction, and internal rotation. Once this was completed, the left leg was prepped and draped in the usual sterile fashion. A standard incision was made just proximal to the trochanter. The incision was taken down through the subcutaneous tissue and gluteal fascia was opened. The fracture was then reduced using of the proximal fragment, and at this point, entry into the trochanter and into the distal fragment was obtained. This was done with a guidewire. Subsequently, a proximal reamer was used. The position of the guidewire was checked on AP and lateral prior to placing the proximal reamer. At this point, once the proximal reamer was introduced, the reamer and pin were removed. A short 125-degree gamma nail was then placed in. At this point, using a lateral guide, a pin was placed through the lateral cortex through the nail into the neck into the head. This was checked and rechecked on AP and lateral. On AP view, this was slightly inferior just at the level of the calcar and the neck, and on the lateral it was in a center position. This pin measured 100 mm for length and at this point, a 100 mm reaming was performed and a 100 mm lag screw was placed without any complication. This provided excellent purchase. Once this was completed, the set screw was then locked in without any complications from the above. At this point in time, the guide pin was removed and the reduction was checked. This was near anatomical. The position of the lag screw was checked on AP and lateral. It appeared to be intraosseous throughout. The nail was in excellent position. The fracture was reduced excellent. At this point, all wounds were thoroughly irrigated and guidewire was removed. The gluteal fascia was closed using #1 Vicryl suture. Subcutaneous tissue was closed using 2-0 Vicryl suture. Skin was closed using 3-0 Monocryl suture. Sterile dressing was applied and the patient tolerated the procedure well without any complication. She was taken to recovery room in stable condition. Pedro Moore M.D. DR: GUICHO JOB#: [id number] CC:
[2016-08-13 08:22] LABS: BASOPHILS % (AUTO) 0.4 % (0.0-2.0); EOSINOPHILS % (AUTO) 0.4 % (0.0-3.0); LYMPHOCYTES % (AUTO) 9.5 % (20.0-45.0); MEAN CORPUSCULAR HEMOGLOBIN 31.2 PG (27.0-31.0); MEAN CORPUSCULAR HGB CONC 33.8 G/DL (32.0-36.0); MEAN CORPUSCULAR VOLUME 92 FL (80-99); MEAN PLATELET VOLUME 6.1 FL (6.5-10.1); MONOCYTES % (AUTO) 10.7 % (1.0-10.0); NEUTROPHILS % (AUTO) 78.9 % (45.0-75.0); PLATELET COUNT 238 K/UL (150-450); RED BLOOD COUNT 2.75 M/UL (4.20-5.40); WHITE BLOOD COUNT 10.8 K/UL (4.8-10.8)
[2016-08-13 08:41] LABS: ANION GAP 13 (5-15); CALCIUM 8.1 mg/dL (8.6-10.2); CARBON DIOXIDE 28 mEQ/L (20-30); CHLORIDE 96 mEQ/L (98-107); CREATININE 0.5 mg/dL (0.5-0.9); HEMOLYSIS 2; POTASSIUM 4.5 mEQ/L (3.4-4.9); SODIUM 137 mEQ/L (135-145)
[2016-08-13] MEDS: Flonase Nasal Inhaler 16gm NASAL SCH (09:33)
[2016-08-13] MEDS: Docusate 100mg tablet ORAL SCH ×3 (09:33→18:00)
[2016-08-13] MEDS: celeBREX 200mg Cap **SURGERY PATIENTS ONLY ORAL SCH (09:34)
[2016-08-13] MEDS: Enoxaparin 30mg Inj SUBQ SCH (09:40)
--- NOTE | 2016-08-13 09:53 | Diagnostic Imaging Report ---
Indications: Open reduction and internal fixation of left femoral intertrochanteric fracture Technique: Portable AP view of the pelvis there Findings: Comparison: 05/10/16 There is been interval placement of a dynamic screw and intramedullary vince across the intertrochanteric fracture of the left femur. Main fracture fragments are held in anatomic alignment overlying soft tissues are swollen with gas. Degenerative changes again noted lower lumbar spine. IMPRESSION: ORIF left femoral intertrochanteric fracture
--- NOTE | 2016-08-13 10:16 | Diagnostic Imaging Report ---
Indications: Left femoral intertrochanteric fracture, open reduction and internal fixation Technique: Above procedure including fluoroscopy performed by Dr. Donovan. Portable intraoperative spot film images of the left hip performed in AP and lateral projections. Findings: Comparison: 08/10/16 Dynamic hip screw and intramedullary vince have been placed across the intertrochanteric fracture of left femur. Main fracture fragments appear anatomically aligned. IMPRESSION: ORIF left femoral intertrochanteric fracture
[2016-08-13 12:00] VITALS: BP 115/57
--- NOTE | 2016-08-13 12:37 | 48 Hour Post Anesthesia Eval ---
Post Anesthesia Evaluation Procedure: ORIF left hip fracture Date of Evaluation: Aug 13, 2016 Time of Evaluation: 18:50 Blood Pressure Systolic: 112 0: 58 Pulse Rate: 76 Respiratory Rate: 17 Temperature (Fahrenheit): 98.0 O2 Sat by Pulse Oximetry: 93 Airway: patent Nausea: No Vomiting: No If pain is > 6 Comment: 2 Hydration Status: adequate Cardiopulmonary Status: Stable Mental Status/LOC: patient returned to baseline - Currently sleeping Follow-up Care/Observations: As per surgery Post-Anesthesia Complications: No anesthetic complication Follow-up care needed: N/A LORY GUERRA M.D. Aug 13, 2016 12:37
--- NOTE | 2016-08-13 13:22 | Orthopedic Progress Note ---
Orthopedic - Progress Note Subjective Symptoms: improved Objective Vital Signs Laboratory Tests Test 08/13/16 07:05 White Blood Count 10.8 K/UL (4.8-10.8) Red Blood Count 2.75 M/UL (4.20-5.40) L Hemoglobin 8.6 G/DL (12.0-16.0) L Hematocrit 25.3 % (37.0-47.0) L Mean Corpuscular Volume 92 FL (80-99) Mean Corpuscular Hemoglobin 31.2 PG (27.0-31.0) H Mean Corpuscular Hemoglobin Concent 33.8 G/DL (32.0-36.0) Red Cell Distribution Width 13.0 % (11.6-14.8) Platelet Count 238 K/UL (150-450) Mean Platelet Volume 6.1 FL (6.5-10.1) L Neutrophils (%) (Auto) 78.9 % (45.0-75.0) H Lymphocytes (%) (Auto) 9.5 % (20.0-45.0) L Monocytes (%) (Auto) 10.7 % (1.0-10.0) H Eosinophils (%) (Auto) 0.4 % (0.0-3.0) Basophils (%) (Auto) 0.4 % (0.0-2.0) Sodium Level 137 mEQ/L (135-145) Potassium Level 4.5 mEQ/L (3.4-4.9) Chloride Level 96 mEQ/L (98-107) L Carbon Dioxide Level 28 mEQ/L (20-30) Anion Gap 13 (5-15) Blood Urea Nitrogen 22 mg/dL (7-23) Creatinine 0.5 mg/dL (0.5-0.9) Estimat Glomerular Filtration Rate mL/min (>60) Glucose Level 162 mg/dL (74-106) H Calcium Level 8.1 mg/dL (8.6-10.2) L Last 24 Hour Vital Signs Date Time Temp Pulse Resp B/P Pulse Ox O2 Delivery O2 Flow Rate FiO2 08/13/16 12:37 76 17 93 08/13/16 12:00 97.5 90 17 115/57 98 Nasal Cannula 2.0 08/13/16 08:49 98.1 08/13/16 08:00 98.0 76 17 112/58 93 Room Air 08/13/16 04:00 98.1 109 20 130/68 98 Nasal Cannula 08/13/16 00:00 98.1 111 22 116/53 92 Nasal Cannula 08/12/16 20:36 96.4 96 20 138/76 93 Room Air 08/12/16 19:15 96.8 103 20 112/71 95 Nasal Cannula 3.0 08/12/16 18:55 102 22 143/75 99 Nasal Cannula 3.0 08/12/16 18:40 99 16 138/80 96 Nasal Cannula 3.0 08/12/16 18:25 93 25 144/89 100 Nasal Cannula 3.0 08/12/16 18:10 97 24 121/75 100 Simple Mask 6.0 08/12/16 18:07 101 16 100 08/12/16 18:05 100 22 125/73 100 Simple Mask 6.0 08/12/16 18:00 97.9 99 19 128/79 100 Simple Mask 6.0 08/12/16 14:09 97.0 79 20 138/79 95 Room Air I&O Intake and Output 08/12/16 08/13/16 19:00 07:00 Intake Total 600 ml 712.5 ml Output Total 205 ml 325 ml Balance 395 ml 387.5 ml IV Total 600 ml 712.5 ml Output Urine Total 155 ml 325 ml Estimated Blood Loss 50 ml Wound: clean, dry, intact Drains: none Neuro Status: normal Vascular Status: normal Additional Comments Xray reviewed: excellent Assessment Post-op Diagnosis POD 1 Procedure Performed left hip ORIF Plan Plan: PT, discharge plan - snf on d/c. f/u Dr. Moore 2 weeks CELIA VICKERS Aug 13, 2016 13:22
[2016-08-13] MEDS ORDERED: D5 1/2NS 1000ml IV ONE (15:58)
[2016-08-13 16:00] VITALS: BP 89/49
--- NOTE | 2016-08-13 19:09 | Nephrology Progress Note ---
Assessment/Plan Assessment 1. Hypocalcemia. 2. Prerenal azotemia. 3. Hematuria. 4. Elevated blood sugar, diabetes is a possibility. 5. Uncontrolled blood pressure. Plan plan continue ivf replace electrolyte as need monitoring renal function avoid NSAID Subjective Constitutional: Reports: no symptoms Subjective awake confused more comfortable s/p orif Objective Objective Last 24 Hour Vital Signs Date Time Temp Pulse Resp B/P Pulse Ox O2 Delivery O2 Flow Rate FiO2 08/13/16 16:00 97.9 73 19 89/49 95 Nasal Cannula 4.0 08/13/16 12:37 76 17 93 08/13/16 12:00 97.5 90 17 115/57 98 Nasal Cannula 2.0 08/13/16 08:49 98.1 08/13/16 08:00 98.0 76 17 112/58 93 Room Air 08/13/16 04:00 98.1 109 20 130/68 98 Nasal Cannula 08/13/16 00:00 98.1 111 22 116/53 92 Nasal Cannula 08/12/16 20:36 96.4 96 20 138/76 93 Room Air 08/12/16 19:15 96.8 103 20 112/71 95 Nasal Cannula 3.0 Intake and Output 08/12/16 08/13/16 19:00 07:00 Intake Total 600 ml 712.5 ml Output Total 205 ml 325 ml Balance 395 ml 387.5 ml IV Total 600 ml 712.5 ml Output Urine Total 155 ml 325 ml Estimated Blood Loss 50 ml Laboratory Tests 08/13/16 07:05: White Blood Count 10.8, Red Blood Count 2.75L, Hemoglobin 8.6L, Hematocrit 25.3L , Mean Corpuscular Volume 92, Mean Corpuscular Hemoglobin 31.2H, Mean Corpuscular Hemoglobin Concent 33.8, Red Cell Distribution Width 13.0, Platelet Count 238, Mean Platelet Volume 6.1L, Neutrophils (%) (Auto) 78.9H, Lymphocytes (%) (Auto) 9.5L, Monocytes (%) (Auto) 10.7H, Eosinophils (%) (Auto) 0.4, Basophils (%) (Auto) 0.4, Sodium Level 137, Potassium Level 4.5, Chloride Level 96L, Carbon Dioxide Level 28, Anion Gap 13, Blood Urea Nitrogen 22, Creatinine 0.5, Estimat Glomerular Filtration Rate , Glucose Level 162H, Calcium Level 8.1L Height (Feet): 5 Height (Inches): 0.00 Weight (Pounds): 91 Objective HEAD AND NECK: No JVD. No LAD. No thyromegaly. Extraocular movement intact. Pupils are reactive to light and accommodation. LUNGS: Clear to auscultation. CARDIAC: Regular rate and rhythm. S1-S2. No murmur. No rub. ABDOMEN: Soft, nontender, and nondistended. EXTREMITIES: The patient's left hip is internally rotated with severe pain to touch. KATT LAURENT Aug 13, 2016 19:09
[2016-08-13 20:00] VITALS: BP 110/60
--- NOTE | 2016-08-13 22:44 | Pulmonology Progress Note ---
Assessment/Plan Problems: (1) Severe protein-calorie malnutrition (2) Azotemia (3) Dementia (4) Closed intertrochanteric fracture of left hip Assessment/Plan Plan Surgery follows Fall precautions PT/OT UA with evidence of UTI continue Bactrim urine cx + E coli ID follows Subjective ROS Limited/Unobtainable: Yes Constitutional: Reports: anorexia, fatigue Neurologic: Reports: confusion, weakness Allergies: Coded Allergies: SULFAMETHOXAZOLE (Verified Allergy, Mild, itching, 08/19/16) TRIMETHOPRIM (Verified Allergy, Mild, itching, 08/19/16) DIAZEPAM (Verified Allergy, Unknown, 08/10/16) ERYTHROMYCIN BASE (Verified Allergy, Unknown, 08/10/16) LATEX (Verified Allergy, Unknown, 08/10/16) MEPERIDINE (Verified Allergy, Unknown, 08/10/16) MOXIFLOXACIN (Verified Allergy, Unknown, 08/10/16) PENICILLINS (Verified Allergy, Unknown, 08/10/16) THIOPENTAL (Verified Allergy, Unknown, 08/10/16) Uncoded Allergies: iv dye (Allergy, Unknown, 08/10/16) Objective Last 24 Hour Vital Signs Date Time Temp Pulse Resp B/P Pulse Ox O2 Delivery O2 Flow Rate FiO2 08/13/16 21:30 97.9 08/13/16 16:00 97.9 73 19 89/49 95 Nasal Cannula 4.0 08/13/16 12:37 76 17 93 08/13/16 12:00 97.5 90 17 115/57 98 Nasal Cannula 2.0 08/13/16 08:49 98.1 08/13/16 08:00 98.0 76 17 112/58 93 Room Air 08/13/16 04:00 98.1 109 20 130/68 98 Nasal Cannula 08/13/16 00:00 98.1 111 22 116/53 92 Nasal Cannula Intake and Output 08/12/16 08/13/16 19:00 07:00 Intake Total 600 ml 712.5 ml Output Total 205 ml 325 ml Balance 395 ml 387.5 ml IV Total 600 ml 712.5 ml Output Urine Total 155 ml 325 ml Estimated Blood Loss 50 ml General Appearance: no acute distress HEENT: normocephalic, atraumatic, PERRL Respiratory/Chest: chest wall non-tender, decreased breath sounds, accessory muscle use Breasts: no masses Cardiovascular: normal peripheral pulses, normal rate, regular rhythm, no JVD Abdomen: normal bowel sounds, soft, non tender, no organomegaly, non distended Genitourinary: normal external genitalia Extremities: no cyanosis Skin: no rash 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, no motor/sensory deficits Laboratory Tests 08/13/16 07:05: White Blood Count 10.8, Red Blood Count 2.75L, Hemoglobin 8.6L, Hematocrit 25.3L , Mean Corpuscular Volume 92, Mean Corpuscular Hemoglobin 31.2H, Mean Corpuscular Hemoglobin Concent 33.8, Red Cell Distribution Width 13.0, Platelet Count 238, Mean Platelet Volume 6.1L, Neutrophils (%) (Auto) 78.9H, Lymphocytes (%) (Auto) 9.5L, Monocytes (%) (Auto) 10.7H, Eosinophils (%) (Auto) 0.4, Basophils (%) (Auto) 0.4, Sodium Level 137, Potassium Level 4.5, Chloride Level 96L, Carbon Dioxide Level 28, Anion Gap 13, Blood Urea Nitrogen 22, Creatinine 0.5, Estimat Glomerular Filtration Rate , Glucose Level 162H, Calcium Level 8.1L Current Medications Medications (Trade) Dose Ordered Sig/Taiwo Route PRN Reason Start Time Stop Time Status Last Admin Dose Admin Acetaminophen (Tylenol) 650 mg Q4H PRN ORAL fever 08/10/16 07:00 09/09/16 06:59 08/13/16 20:31 Acetaminophen (Tylenol) 650 mg Q4H PRN ORAL Mild Pain (Pain Scale 1-3) 08/12/16 17:15 09/11/16 17:14 Acetaminophen/ Hydrocodone Bitart ([place] 7.5/325) 1 ea Q4H PRN ORAL Moderate Pain (Pain Scale 4-6) 08/12/16 17:15 08/19/16 17:14 Al Hydroxide/Mg Hydroxide (Mylanta II) 30 ml Q6H PRN ORAL dyspepsia 08/10/16 07:00 09/09/16 06:59 Bisacodyl (Dulcolax) 10 mg Q12H PRN RECTAL Constipation [employer]ENT 08/12/16 17:15 09/11/16 17:14 Celecoxib (CeleBREX) 200 mg DAILY ORAL 08/13/16 09:00 09/12/16 08:59 08/13/16 09:34 Dextrose (Dextrose 50%) STAT PRN IV Hypoglycemia 08/10/16 07:00 09/09/16 06:59 Dextrose/ Electrolytes (D5 0.45%NS W/ KCl 20mEq) 1,000 ml @ 75 mls/hr [id number] IV 08/12/16 21:00 09/11/16 20:59 08/13/16 11:59 Docusate Sodium (Colace) 100 mg THREE TIMES A DAY ORAL 08/12/16 21:00 09/11/16 20:59 08/13/16 09:33 Enoxaparin Sodium (Lovenox) 30 mg DAILY SUBQ 08/13/16 09:00 08/23/16 08:59 08/13/16 09:40 Ferrous Sulfate (Feosol) 325 mg THREE TIMES A DAY ORAL 08/12/16 21:00 09/11/16 20:59 08/13/16 09:34 Fluticasone Propionate (Flonase) 2 spray DAILY NASAL 08/10/16 09:00 09/09/16 08:59 08/13/16 09:33 Hydromorphone HCl (Dilaudid) 1 mg Q4H PRN SUBQ Severe Pain (Pain Scale 7-10) 08/12/16 20:30 08/19/16 20:29 08/13/16 08:19 Lorazepam 0.4 mg 0.4 mg Q4H PRN IM Agitation 08/10/16 12:15 08/17/16 12:14 08/13/16 12:37 Ondansetron HCl (Zofran) 4 mg Q6H PRN IVP Nausea & Vomiting 08/10/16 07:00 09/09/16 06:59 Oxycodone HCl (Roxicodone) 10 mg EVERY 8 HOURS ORAL 08/10/16 14:00 08/17/16 13:59 08/13/16 22:25 Polyethylene Glycol (Miralax) 17 gm HSPRN PRN ORAL Constipation 08/10/16 07:00 09/09/16 06:59 Zolpidem Tartrate (Ambien) 5 mg HSPRN PRN ORAL Insomnia 08/10/16 07:00 09/09/16 06:59 KYRA MOMIN Aug 13, 2016 22:44
[2016-08-14] VITALS: BP 123/75
[2016-08-14] MEDS: HYDROmorphone 1mg/ml Carpuject SUBQ PRN ×4 (03:56→22:01)
[2016-08-14 04:00] VITALS: BP 136/78
[2016-08-14] MEDS: LORazepam Inj 2mg/ml 1ml IM PRN ×2 (05:23→23:33)
[2016-08-14] MEDS: oxyCODONE 5mg IR tab ORAL SCH ×3 (05:46→22:00)
[2016-08-14 07:38] LABS: ANION GAP 14 (5-15); CALCIUM 7.7 mg/dL (8.6-10.2); CARBON DIOXIDE 22 mEQ/L (20-30); CHLORIDE 97 mEQ/L (98-107); CREATININE 0.5 mg/dL (0.5-0.9); HEMOLYSIS 44; POTASSIUM 5.3 mEQ/L (3.4-4.9); SODIUM 133 mEQ/L (135-145)
[2016-08-14 07:55] LABS: BASOPHILS % (AUTO) 0.9 % (0.0-2.0); EOSINOPHILS % (AUTO) 2.5 % (0.0-3.0); LYMPHOCYTES % (AUTO) 14.6 % (20.0-45.0); MEAN CORPUSCULAR HEMOGLOBIN 29.6 PG (27.0-31.0); MEAN CORPUSCULAR HGB CONC 32.9 G/DL (32.0-36.0); MEAN CORPUSCULAR VOLUME 90 FL (80-99); MEAN PLATELET VOLUME 6.5 FL (6.5-10.1); MONOCYTES % (AUTO) 7.3 % (1.0-10.0); NEUTROPHILS % (AUTO) 74.8 % (45.0-75.0); PLATELET COUNT 187 K/UL (150-450); RED BLOOD COUNT 3.97 M/UL (4.20-5.40); WHITE BLOOD COUNT 7.8 K/UL (4.8-10.8)
[2016-08-14 08:00] VITALS: BP 135/71
[2016-08-14] MEDS: Enoxaparin 30mg Inj SUBQ SCH (08:42)
[2016-08-14] MEDS: Docusate 100mg tablet ORAL SCH ×3 (08:43→22:02)
[2016-08-14] MEDS: Flonase Nasal Inhaler 16gm NASAL SCH (08:43)
[2016-08-14] MEDS: celeBREX 200mg Cap **SURGERY PATIENTS ONLY ORAL SCH (08:49)
[2016-08-14] MEDS: Norco 7.5mg/325mg tab ORAL PRN (08:50)
--- NOTE | 2016-08-14 11:30 | Nephrology Progress Note ---
Assessment/Plan Assessment 1. hyperkalemia 2. Prerenal azotemia. 3. Hematuria. 4. Elevated blood sugar, diabetes is a possibility. 5. Uncontrolled blood pressure. Plan plan change ivf no need for Kayexalate replace electrolyte as need monitoring renal function avoid NSAID Subjective Constitutional: Reports: no symptoms HEENT: Reports: no symptoms Genitourinary: Reports: no symptoms Neurologic/Psychiatric: Reports: no symptoms Subjective awake confused more comfortable s/p orif Objective Objective Last 24 Hour Vital Signs Date Time Temp Pulse Resp B/P Pulse Ox O2 Delivery O2 Flow Rate FiO2 08/14/16 09:49 97.2 08/14/16 08:00 98.1 94 18 135/71 94 Nasal Cannula 2.0 08/14/16 04:00 97.2 96 21 136/78 99 Nasal Cannula 08/14/16 00:00 97.2 84 18 123/75 99 Nasal Cannula 08/13/16 21:30 97.9 08/13/16 20:00 98.1 91 19 110/60 99 Nasal Cannula 4.0 08/13/16 16:00 97.9 73 19 89/49 95 Nasal Cannula 4.0 08/13/16 12:37 76 17 93 08/13/16 12:00 97.5 90 17 115/57 98 Nasal Cannula 2.0 Intake and Output 08/13/16 08/14/16 19:00 07:00 Intake Total 657.5 ml 715 ml Output Total 200 ml 300 ml Balance 457.5 ml 415 ml Intake Oral 120 ml 340 ml IV Total 537.5 ml 375 ml Output Urine Total 200 ml 300 ml Laboratory Tests 08/14/16 07:09: Sodium Level 133L, Potassium Level 5.3H, Chloride Level 97L, Carbon Dioxide Level 22, Anion Gap 14, Blood Urea Nitrogen 18, Creatinine 0.5, Estimat Glomerular Filtration Rate , Glucose Level 127H, Calcium Level 7.7L 08/14/16 07:45: White Blood Count 7.8, Red Blood Count 3.97L, Hemoglobin 11.8#L, Hematocrit 35.7 #L, Mean Corpuscular Volume 90, Mean Corpuscular Hemoglobin 29.6, Mean Corpuscular Hemoglobin Concent 32.9, Red Cell Distribution Width 14.0, Platelet Count 187, Mean Platelet Volume 6.5, Neutrophils (%) (Auto) 74.8, Lymphocytes (% ) (Auto) 14.6L, Monocytes (%) (Auto) 7.3, Eosinophils (%) (Auto) 2.5, Basophils (%) (Auto) 0.9 Height (Feet): 5 Height (Inches): 0.00 Weight (Pounds): 91 Objective HEAD AND NECK: No JVD. No LAD. No thyromegaly. Extraocular movement intact. Pupils are reactive to light and accommodation. LUNGS: Clear to auscultation. CARDIAC: Regular rate and rhythm. S1-S2. No murmur. No rub. ABDOMEN: Soft, nontender, and nondistended. EXTREMITIES: The patient's left hip is internally rotated with severe pain to touch. KATT LAURENT Aug 14, 2016 11:30
[2016-08-14] MEDS: D5NS 1,000 ML IV SCH (11:43)
[2016-08-14] MEDS ORDERED: D5NS 1,000 ML IV SCH (11:45)
[2016-08-14 12:00] VITALS: BP 128/79
--- NOTE | 2016-08-14 13:37 | General Progress Note ---
Assessment/Plan Problem List: (1) Laceration of forearm, left ICD Codes: S51.812A - Laceration without foreign body of left forearm, initial encounter SNOMED: 347388588, 433638029 Qualifiers: Qualified Codes: S51.812A - Laceration without foreign body of left forearm , initial encounter (2) Fall ICD Codes: W19.XXXA - Unspecified fall, initial encounter SNOMED: 8279367, [id number] Qualifiers: Qualified Codes: W19.XXXA - Unspecified fall, initial encounter (3) Dementia ICD Codes: F03.90 - Unspecified dementia without behavioral disturbance SNOMED: 68675488 (4) Severe protein-calorie malnutrition ICD Codes: E43 - Unspecified severe protein-calorie malnutrition SNOMED: 714703631 (5) Closed intertrochanteric fracture of left hip ICD Codes: S72.142A - Displaced intertrochanteric fracture of left femur, initial encounter for closed fracture SNOMED: 50084243 Qualifiers: Qualified Codes: S72.142A - Displaced intertrochanteric fracture of left femur, initial encounter for closed fracture (6) Azotemia ICD Codes: R79.89 - Other specified abnormal findings of blood chemistry SNOMED: 700831659 Status: stable, progressing, tolerating diet Assessment/Plan ot pt diet abx cbc bmp am dc plan Subjective Constitutional: Reports: weakness Allergies: Coded Allergies: DIAZEPAM (Verified Allergy, Unknown, 08/10/16) ERYTHROMYCIN BASE (Verified Allergy, Unknown, 08/10/16) LATEX (Verified Allergy, Unknown, 08/10/16) MEPERIDINE (Verified Allergy, Unknown, 08/10/16) MOXIFLOXACIN (Verified Allergy, Unknown, 08/10/16) PENICILLINS (Verified Allergy, Unknown, 08/10/16) THIOPENTAL (Verified Allergy, Unknown, 08/10/16) Uncoded Allergies: iv dye (Allergy, Unknown, 08/10/16) All Systems: reviewed and negative except above Subjective sleepy calm Objective Last 24 Hour Vital Signs Date Time Temp Pulse Resp B/P Pulse Ox O2 Delivery O2 Flow Rate FiO2 08/14/16 09:49 97.2 08/14/16 08:00 98.1 94 18 135/71 94 Nasal Cannula 2.0 08/14/16 04:00 97.2 96 21 136/78 99 Nasal Cannula 08/14/16 00:00 97.2 84 18 123/75 99 Nasal Cannula 08/13/16 21:30 97.9 08/13/16 20:00 98.1 91 19 110/60 99 Nasal Cannula 4.0 08/13/16 16:00 97.9 73 19 89/49 95 Nasal Cannula 4.0 Intake and Output 08/13/16 08/14/16 19:00 07:00 Intake Total 657.5 ml 715 ml Output Total 200 ml 300 ml Balance 457.5 ml 415 ml Intake Oral 120 ml 340 ml IV Total 537.5 ml 375 ml Output Urine Total 200 ml 300 ml Laboratory Tests 08/14/16 07:09: Sodium Level 133L, Potassium Level 5.3H, Chloride Level 97L, Carbon Dioxide Level 22, Anion Gap 14, Blood Urea Nitrogen 18, Creatinine 0.5, Estimat Glomerular Filtration Rate , Glucose Level 127H, Calcium Level 7.7L 08/14/16 07:45: White Blood Count 7.8, Red Blood Count 3.97L, Hemoglobin 11.8#L, Hematocrit 35.7 #L, Mean Corpuscular Volume 90, Mean Corpuscular Hemoglobin 29.6, Mean Corpuscular Hemoglobin Concent 32.9, Red Cell Distribution Width 14.0, Platelet Count 187, Mean Platelet Volume 6.5, Neutrophils (%) (Auto) 74.8, Lymphocytes (% ) (Auto) 14.6L, Monocytes (%) (Auto) 7.3, Eosinophils (%) (Auto) 2.5, Basophils (%) (Auto) 0.9 Height (Feet): 5 Height (Inches): 0.00 Weight (Pounds): 91 General Appearance: lethargic EENT: normal ENT inspection Neck: normal alignment Cardiovascular: normal peripheral pulses, normal rate, regular rhythm Respiratory/Chest: chest wall non-tender, lungs clear, normal breath sounds Abdomen: normal bowel sounds, non tender, soft Extremities: normal inspection Edema: no edema noted Arm (L), no edema noted Arm (R), no edema noted Leg (L), no edema noted Leg (R), no edema noted Pedal (L), no edema noted Pedal (R), no edema noted Generalized Neurologic: motor weakness Skin: normal pigmentation, warm/dry ZARA MAS Aug 14, 2016 13:37
[2016-08-14 16:00] VITALS: BP 136/54
[2016-08-14 20:00] VITALS: BP 142/86
[2016-08-14] MEDS: Miralax 17gm pkt ORAL PRN (22:02)
[2016-08-14] MEDS ORDERED: NS 550ML IV ONE (22:22)
[2016-08-14] MEDS ORDERED: D5NS 1000ml IV ONE (22:22)
[2016-08-14] MEDS ORDERED: Tubing IV Secondary IV ONE (22:22)
--- NOTE | 2016-08-14 22:26 | Pulmonology Progress Note ---
Assessment/Plan Problems: (1) Severe protein-calorie malnutrition (2) Azotemia (3) Dementia (4) Closed intertrochanteric fracture of left hip Assessment/Plan PLAN Fall precautions PT/OT UA with evidence of UTI continue Bactrim urine cx + E coli ID follows Subjective ROS Limited/Unobtainable: Yes Constitutional: Reports: anorexia, fatigue Neurologic: Reports: confusion, weakness Skin: Reports: rash, ulcer Musculoskeletal: Reports: pain, stiffness, swelling Allergies: Coded Allergies: SULFAMETHOXAZOLE (Verified Allergy, Mild, itching, 08/19/16) TRIMETHOPRIM (Verified Allergy, Mild, itching, 08/19/16) DIAZEPAM (Verified Allergy, Unknown, 08/10/16) ERYTHROMYCIN BASE (Verified Allergy, Unknown, 08/10/16) LATEX (Verified Allergy, Unknown, 08/10/16) MEPERIDINE (Verified Allergy, Unknown, 08/10/16) MOXIFLOXACIN (Verified Allergy, Unknown, 08/10/16) PENICILLINS (Verified Allergy, Unknown, 08/10/16) THIOPENTAL (Verified Allergy, Unknown, 08/10/16) Uncoded Allergies: iv dye (Allergy, Unknown, 08/10/16) Objective Last 24 Hour Vital Signs Date Time Temp Pulse Resp B/P Pulse Ox O2 Delivery O2 Flow Rate FiO2 08/14/16 20:00 97.0 75 20 142/86 96 Nasal Cannula 2.0 08/14/16 16:00 97.2 114 19 136/54 97 Room Air 08/14/16 13:25 97.2 08/14/16 12:00 98.5 81 18 128/79 97 Nasal Cannula 2.0 08/14/16 09:49 97.2 08/14/16 08:00 98.1 94 18 135/71 94 Nasal Cannula 2.0 08/14/16 04:00 97.2 96 21 136/78 99 Nasal Cannula 08/14/16 00:00 97.2 84 18 123/75 99 Nasal Cannula Intake and Output 08/13/16 08/14/16 19:00 07:00 Intake Total 657.5 ml 715 ml Output Total 200 ml 300 ml Balance 457.5 ml 415 ml Intake Oral 120 ml 340 ml IV Total 537.5 ml 375 ml Output Urine Total 200 ml 300 ml General Appearance: no acute distress HEENT: normocephalic, atraumatic, PERRL Respiratory/Chest: chest wall non-tender, decreased breath sounds, accessory muscle use Breasts: no masses Cardiovascular: normal peripheral pulses, normal rate, regular rhythm, no JVD Abdomen: normal bowel sounds, soft, non tender, no organomegaly, non distended Genitourinary: normal external genitalia Skin: no rash 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, responsive, disoriented Laboratory Tests 08/14/16 07:09: Sodium Level 133L, Potassium Level 5.3H, Chloride Level 97L, Carbon Dioxide Level 22, Anion Gap 14, Blood Urea Nitrogen 18, Creatinine 0.5, Estimat Glomerular Filtration Rate , Glucose Level 127H, Calcium Level 7.7L 08/14/16 07:45: White Blood Count 7.8, Red Blood Count 3.97L, Hemoglobin 11.8#L, Hematocrit 35.7 #L, Mean Corpuscular Volume 90, Mean Corpuscular Hemoglobin 29.6, Mean Corpuscular Hemoglobin Concent 32.9, Red Cell Distribution Width 14.0, Platelet Count 187, Mean Platelet Volume 6.5, Neutrophils (%) (Auto) 74.8, Lymphocytes (% ) (Auto) 14.6L, Monocytes (%) (Auto) 7.3, Eosinophils (%) (Auto) 2.5, Basophils (%) (Auto) 0.9 Current Medications Medications (Trade) Dose Ordered Sig/Taiwo Route PRN Reason Start Time Stop Time Status Last Admin Dose Admin Acetaminophen (Tylenol) 650 mg Q4H PRN ORAL fever 08/10/16 07:00 09/09/16 06:59 08/13/16 20:31 Acetaminophen (Tylenol) 650 mg Q4H PRN ORAL Mild Pain (Pain Scale 1-3) 08/12/16 17:15 09/11/16 17:14 Acetaminophen/ Hydrocodone Bitart ([place] 7.5/325) 1 ea Q4H PRN ORAL Moderate Pain (Pain Scale 4-6) 08/12/16 17:15 08/19/16 17:14 08/14/16 08:50 Al Hydroxide/Mg Hydroxide (Mylanta II) 30 ml Q6H PRN ORAL dyspepsia 08/10/16 07:00 09/09/16 06:59 Bisacodyl (Dulcolax) 10 mg Q12H PRN RECTAL Constipation FIRST LINE AGENT 08/12/16 17:15 09/11/16 17:14 Celecoxib (CeleBREX) 200 mg DAILY ORAL 08/13/16 09:00 09/12/16 08:59 08/14/16 08:49 Dextrose (Dextrose 50%) STAT PRN IV Hypoglycemia 08/10/16 07:00 09/09/16 06:59 Dextrose/Sodium Chloride (D5ns) 1,000 ml @ 50 mls/hr Q20H IV 08/14/16 12:00 09/13/16 11:59 08/14/16 11:43 Docusate Sodium (Colace) 100 mg THREE TIMES A DAY ORAL 08/12/16 21:00 09/11/16 20:59 08/14/16 22:02 Enoxaparin Sodium (Lovenox) 30 mg DAILY SUBQ 08/13/16 09:00 08/23/16 08:59 08/14/16 08:42 Ferrous Sulfate (Feosol) 325 mg THREE TIMES A DAY ORAL 08/12/16 21:00 09/11/16 20:59 08/14/16 22:01 Fluticasone Propionate (Flonase) 2 spray DAILY NASAL 08/10/16 09:00 09/09/16 08:59 08/14/16 08:43 Hydromorphone HCl 1 mg 1 mg Q4H PRN SUBQ Severe Pain (Pain Scale 7-10) 08/12/16 20:30 08/19/16 20:29 08/14/16 22:01 Lorazepam (Ativan 2mg/ml 1ml) 0.4 mg Q4H PRN IM Agitation 08/10/16 12:15 08/17/16 12:14 08/14/16 05:23 Ondansetron HCl (Zofran) 4 mg Q6H PRN IVP Nausea & Vomiting 08/10/16 07:00 09/09/16 06:59 Oxycodone HCl (Roxicodone) 10 mg EVERY 8 HOURS ORAL 08/10/16 14:00 08/17/16 13:59 08/13/16 22:25 Polyethylene Glycol (Miralax) 17 gm HSPRN PRN ORAL Constipation 08/10/16 07:00 09/09/16 06:59 08/14/16 22:02 Zolpidem Tartrate (Ambien) 5 mg HSPRN PRN ORAL Insomnia 08/10/16 07:00 09/09/16 06:59 KYRA MOMIN Aug 14, 2016 22:26
--- NOTE | 2016-08-14 23:28 | Cardiology Progress Note ---
Assessment/Plan Assessment/Plan 1. Accelerated HTN, had an hypotensive episode yesterday, received IV bolus, today has another rebound, will start low dose B-blockers, metoprolol XL 25mg daily. 2. S/P left Hip ORIF, POD # 2, no perioperative cardiac events. Subjective Subjective She was hypotensive, NS was given. Not on tele bed. Objective Last 24 Hour Vital Signs Date Time Temp Pulse Resp B/P Pulse Ox O2 Delivery O2 Flow Rate FiO2 08/14/16 20:00 97.0 75 20 142/86 96 Nasal Cannula 2.0 08/14/16 16:00 97.2 114 19 136/54 97 Room Air 08/14/16 13:25 97.2 08/14/16 12:00 98.5 81 18 128/79 97 Nasal Cannula 2.0 08/14/16 09:49 97.2 08/14/16 08:00 98.1 94 18 135/71 94 Nasal Cannula 2.0 08/14/16 04:00 97.2 96 21 136/78 99 Nasal Cannula 08/14/16 00:00 97.2 84 18 123/75 99 Nasal Cannula Intake and Output 08/13/16 08/14/16 19:00 07:00 Intake Total 657.5 ml 715 ml Output Total 200 ml 300 ml Balance 457.5 ml 415 ml Intake Oral 120 ml 340 ml IV Total 537.5 ml 375 ml Output Urine Total 200 ml 300 ml 2D Echo: LVEF 60-65%, Mild LVH, Mild AR Laboratory Tests Test 08/14/16 07:09 08/14/16 07:45 Sodium Level 133 mEQ/L (135-145) L Potassium Level 5.3 mEQ/L (3.4-4.9) H Chloride Level 97 mEQ/L (98-107) L Carbon Dioxide Level 22 mEQ/L (20-30) Anion Gap 14 (5-15) Blood Urea Nitrogen 18 mg/dL (7-23) Creatinine 0.5 mg/dL (0.5-0.9) Estimat Glomerular Filtration Rate mL/min (>60) Glucose Level 127 mg/dL (74-106) H Calcium Level 7.7 mg/dL (8.6-10.2) L White Blood Count 7.8 K/UL (4.8-10.8) Red Blood Count 3.97 M/UL (4.20-5.40) L Hemoglobin 11.8 G/DL (12.0-16.0) #L Hematocrit 35.7 % (37.0-47.0) #L Mean Corpuscular Volume 90 FL (80-99) Mean Corpuscular Hemoglobin 29.6 PG (27.0-31.0) Mean Corpuscular Hemoglobin Concent 32.9 G/DL (32.0-36.0) Red Cell Distribution Width 14.0 % (11.6-14.8) Platelet Count 187 K/UL (150-450) Mean Platelet Volume 6.5 FL (6.5-10.1) Neutrophils (%) (Auto) 74.8 % (45.0-75.0) Lymphocytes (%) (Auto) 14.6 % (20.0-45.0) L Monocytes (%) (Auto) 7.3 % (1.0-10.0) Eosinophils (%) (Auto) 2.5 % (0.0-3.0) Basophils (%) (Auto) 0.9 % (0.0-2.0) Objective HEENT: Atraumatic and normocephalic. Anicteric. Pupils are equal, round, and accommodation. Dry mucosal membranes. Pupils are equal, round, and reactive to light and accommodation. Extraocular muscles intact. NECK: JVP is less than 5 cm. No carotid bruits. Carotid upstrokes 2+ bilaterally. CARDIOVASCULAR: Normal S1, S2. Irregularly irregular rhythm. A 2/6 mid systolic murmur in the left sternal border. PMI is at fourth intercostal space in the midclavicular line. LUNGS: Clear to auscultation bilaterally. ABDOMEN: Soft, nontender, and nondistended. No hepatosplenomegaly. Positive bowel sounds. EXTREMITIES: No edema, clubbing or cyanosis right leg. VINH GRIMALDO Aug 14, 2016 23:27
[2016-08-15] VITALS: BP 139/79
[2016-08-15 04:00] VITALS: BP 144/65
[2016-08-15] MEDS: HYDROmorphone 1mg/ml Carpuject SUBQ PRN ×2 (04:24→10:43)
[2016-08-15] MEDS: oxyCODONE 5mg IR tab ORAL SCH ×4 (05:48→22:24)
[2016-08-15] MEDS: D5NS 1,000 ML IV SCH (05:48)
[2016-08-15 06:51] LABS: BASOPHILS % (AUTO) 0.9 % (0.0-2.0); EOSINOPHILS % (AUTO) 2.7 % (0.0-3.0); LYMPHOCYTES % (AUTO) 13.4 % (20.0-45.0); MEAN CORPUSCULAR HGB CONC 33.4 G/DL (32.0-36.0); MEAN CORPUSCULAR VOLUME 90 FL (80-99); MEAN PLATELET VOLUME 6.5 FL (6.5-10.1); MONOCYTES % (AUTO) 6.4 % (1.0-10.0); NEUTROPHILS % (AUTO) 76.7 % (45.0-75.0); PLATELET COUNT 243 K/UL (150-450); RED BLOOD COUNT 3.89 M/UL (4.20-5.40); WHITE BLOOD COUNT 7.9 K/UL (4.8-10.8)
[2016-08-15 06:53] LABS: ANION GAP 13 (5-15); CALCIUM 8.1 mg/dL (8.6-10.2); CARBON DIOXIDE 26 mEQ/L (20-30); CHLORIDE 98 mEQ/L (98-107); CREATININE 0.4 mg/dL (0.5-0.9); HEMOLYSIS 2; POTASSIUM 4.8 mEQ/L (3.4-4.9); SODIUM 137 mEQ/L (135-145)
[2016-08-15 08:00] VITALS: BP 128/76
[2016-08-15] MEDS: Norco 7.5mg/325mg tab ORAL PRN ×3 (08:16→20:55)
[2016-08-15] MEDS: celeBREX 200mg Cap **SURGERY PATIENTS ONLY ORAL SCH (08:20)
[2016-08-15] MEDS: Docusate 100mg tablet ORAL SCH ×3 (08:20→16:48)
[2016-08-15] MEDS: Flonase Nasal Inhaler 16gm NASAL SCH (08:21)
[2016-08-15] MEDS: Enoxaparin 30mg Inj SUBQ SCH (08:26)
--- NOTE | 2016-08-15 10:12 | Nephrology Progress Note ---
Assessment/Plan Assessment 1. hyperkalemia 2. Prerenal azotemia. 3. Hematuria. 4. Elevated blood sugar, diabetes is a possibility. 5. Uncontrolled blood pressure. Plan plan change ivf no need for Kayexalate replace electrolyte as need monitoring renal function avoid NSAID Subjective ROS Limited/Unobtainable: Yes Constitutional: Reports: no symptoms HEENT: Reports: no symptoms Genitourinary: Reports: no symptoms Neurologic/Psychiatric: Reports: no symptoms Subjective awake confused more comfortable s/p orif Objective Objective Last 24 Hour Vital Signs Date Time Temp Pulse Resp B/P Pulse Ox O2 Delivery O2 Flow Rate FiO2 08/15/16 09:15 97.0 08/15/16 08:23 102 128/76 08/15/16 04:00 97.0 95 20 144/65 97 Nasal Cannula 2.0 08/15/16 00:00 97.2 95 16 139/79 96 Nasal Cannula 2.0 08/14/16 22:31 97.2 08/14/16 20:00 97.0 75 20 142/86 96 Nasal Cannula 2.0 08/14/16 16:00 97.2 114 19 136/54 97 Room Air 08/14/16 12:00 98.5 81 18 128/79 97 Nasal Cannula 2.0 Intake and Output 08/14/16 08/15/16 19:00 07:00 Intake Total 670 ml 640 ml Output Total 100 ml 250 ml Balance 570 ml 390 ml Intake Oral 420 ml 240 ml IV Total 250 ml 400 ml Output Urine Total 100 ml 250 ml Laboratory Tests 08/15/16 05:30: White Blood Count 7.9, Red Blood Count 3.89L, Hemoglobin 11.7L, Hematocrit 35.0L , Mean Corpuscular Volume 90, Mean Corpuscular Hemoglobin 30.0, Mean Corpuscular Hemoglobin Concent 33.4, Red Cell Distribution Width 14.0, Platelet Count 243, Mean Platelet Volume 6.5, Neutrophils (%) (Auto) 76.7H, Lymphocytes ( %) (Auto) 13.4L, Monocytes (%) (Auto) 6.4, Eosinophils (%) (Auto) 2.7, Basophils (%) (Auto) 0.9, Sodium Level 137, Potassium Level 4.8, Chloride Level 98, Carbon Dioxide Level 26, Anion Gap 13, Blood Urea Nitrogen 20, Creatinine 0.4L, Estimat Glomerular Filtration Rate , Glucose Level 117H, Calcium Level 8.1L Height (Feet): 5 Height (Inches): 0.00 Weight (Pounds): 91 Objective HEAD AND NECK: No JVD. No LAD. No thyromegaly. Extraocular movement intact. Pupils are reactive to light and accommodation. LUNGS: Clear to auscultation. CARDIAC: Regular rate and rhythm. S1-S2. No murmur. No rub. ABDOMEN: Soft, nontender, and nondistended. EXTREMITIES: The patient's left hip is internally rotated with severe pain to touch. KATT LAURENT Aug 15, 2016 10:12
[2016-08-15] MEDS ORDERED: Bisacodyl EC 5mg tab ORAL ONE (10:30)
[2016-08-15 12:05] VITALS: BP 133/70
--- NOTE | 2016-08-15 12:53 | General Progress Note ---
Assessment/Plan Problem List: (1) Laceration of forearm, left ICD Codes: S51.812A - Laceration without foreign body of left forearm, initial encounter SNOMED: 702126429, 390402195 Qualifiers: Qualified Codes: S51.812A - Laceration without foreign body of left forearm , initial encounter (2) Fall ICD Codes: W19.XXXA - Unspecified fall, initial encounter SNOMED: 0064509, [id number] Qualifiers: Qualified Codes: W19.XXXA - Unspecified fall, initial encounter (3) Dementia ICD Codes: F03.90 - Unspecified dementia without behavioral disturbance SNOMED: 91485180 (4) Severe protein-calorie malnutrition ICD Codes: E43 - Unspecified severe protein-calorie malnutrition SNOMED: 986411781 (5) Closed intertrochanteric fracture of left hip ICD Codes: S72.142A - Displaced intertrochanteric fracture of left femur, initial encounter for closed fracture SNOMED: 98697627 Qualifiers: Qualified Codes: S72.142A - Displaced intertrochanteric fracture of left femur, initial encounter for closed fracture (6) Azotemia ICD Codes: R79.89 - Other specified abnormal findings of blood chemistry SNOMED: 639728190 Status: stable, progressing, tolerating diet Assessment/Plan ot pt diet abx cbc bmp am dc plan Subjective Constitutional: Reports: weakness Allergies: Coded Allergies: DIAZEPAM (Verified Allergy, Unknown, 08/10/16) ERYTHROMYCIN BASE (Verified Allergy, Unknown, 08/10/16) LATEX (Verified Allergy, Unknown, 08/10/16) MEPERIDINE (Verified Allergy, Unknown, 08/10/16) MOXIFLOXACIN (Verified Allergy, Unknown, 08/10/16) PENICILLINS (Verified Allergy, Unknown, 08/10/16) THIOPENTAL (Verified Allergy, Unknown, 08/10/16) Uncoded Allergies: iv dye (Allergy, Unknown, 08/10/16) All Systems: reviewed and negative except above Subjective sleepy calm Objective Last 24 Hour Vital Signs Date Time Temp Pulse Resp B/P Pulse Ox O2 Delivery O2 Flow Rate FiO2 08/15/16 12:05 97.0 92 20 133/70 98 08/15/16 09:15 97.0 08/15/16 08:23 102 128/76 08/15/16 08:00 97.5 102 20 128/76 93 Nasal Cannula 2.0 08/15/16 04:00 97.0 95 20 144/65 97 Nasal Cannula 2.0 08/15/16 00:00 97.2 95 16 139/79 96 Nasal Cannula 2.0 08/14/16 22:31 97.2 08/14/16 20:00 97.0 75 20 142/86 96 Nasal Cannula 2.0 08/14/16 16:00 97.2 114 19 136/54 97 Room Air Intake and Output 08/14/16 08/15/16 19:00 07:00 Intake Total 670 ml 640 ml Output Total 100 ml 250 ml Balance 570 ml 390 ml Intake Oral 420 ml 240 ml IV Total 250 ml 400 ml Output Urine Total 100 ml 250 ml Laboratory Tests 08/15/16 05:30: White Blood Count 7.9, Red Blood Count 3.89L, Hemoglobin 11.7L, Hematocrit 35.0L , Mean Corpuscular Volume 90, Mean Corpuscular Hemoglobin 30.0, Mean Corpuscular Hemoglobin Concent 33.4, Red Cell Distribution Width 14.0, Platelet Count 243, Mean Platelet Volume 6.5, Neutrophils (%) (Auto) 76.7H, Lymphocytes ( %) (Auto) 13.4L, Monocytes (%) (Auto) 6.4, Eosinophils (%) (Auto) 2.7, Basophils (%) (Auto) 0.9, Sodium Level 137, Potassium Level 4.8, Chloride Level 98, Carbon Dioxide Level 26, Anion Gap 13, Blood Urea Nitrogen 20, Creatinine 0.4L, Estimat Glomerular Filtration Rate , Glucose Level 117H, Calcium Level 8.1L Height (Feet): 5 Height (Inches): 0.00 Weight (Pounds): 91 General Appearance: lethargic EENT: normal ENT inspection Neck: normal alignment Cardiovascular: normal peripheral pulses, normal rate, regular rhythm Respiratory/Chest: chest wall non-tender, lungs clear, normal breath sounds Abdomen: normal bowel sounds, non tender, soft Extremities: normal inspection Edema: no edema noted Arm (L), no edema noted Arm (R), no edema noted Leg (L), no edema noted Leg (R), no edema noted Pedal (L), no edema noted Pedal (R), no edema noted Generalized Neurologic: responsive, motor weakness Skin: normal pigmentation, warm/dry MAS,ZARA Aug 15, 2016 12:52
[2016-08-15 16:30] VITALS: BP 120/78
--- NOTE | 2016-08-15 17:03 | Wound Care Consultation ---
Wound Assessment Wound Assessment #1: Wound Number: #1 Wound Present on Admission: No New Wound: Yes Status Change of Wound: No Wound Location Body Site Modif: right Wound Location Body Site: sacral Wound Type: pressure ulcer Caio Test: Does not Caio Pressure Ulcer Stage: deep tissue injury Wound Thickness: Full Thickness Wound Length: 6.0 Wound Width: 6.0 Wound Depth: utd Percent of Wound Purple/Maroon: 100 Wound Drainage Amount: None Wound Drainage Odor: None/Absent Tissue Surrounding Wound: Intact Wound General Appearance: Reddened - maroon Wound Assessment #2: Wound Number: #2 Wound Present on Admission: Yes New Wound: No Status Change of Wound: No Wound Location Body Site Modif: left Wound Location Body Site: sacral Wound Type: pressure ulcer Caio Test: Does not Caio Pressure Ulcer Stage: II - DTI revealing stage II. Wound Thickness: Partial Thickness Wound Length: 1.0 Wound Width: 1.0 Wound Depth: 0.1 Percent of Wound [place]/Red: 100 Other Colors Identified: SURROUNDING TISSUE DTI MAROON COLOR. Wound Drainage Description: Serosanguineous Wound Drainage Amount: Scant Wound Drainage Odor: None/Absent Tissue Surrounding Wound: Denuded Wound General Appearance: Reddened Wound Comment #1 Right sacral DTI #2 Left sacral DTI revealing self as stage II. Recommendation. -APPLY LOW AIR LOSS OVERLAY MATTRESS SPR. -Local wound care as ordered. -Turn and reposition. -Offload affected sites. -Avoid shear and friction. -Keep clean and dry. -Optimize nutrition. -Heel protectors. -Assess and notify MD for any change of condition. KILEY MUNOZ Aug 15, 2016 17:03
[2016-08-15] MEDS: LORazepam Inj 2mg/ml 1ml IM PRN (17:37)
[2016-08-15 20:00] VITALS: BP 125/59
--- NOTE | 2016-08-15 22:09 | Pulmonology Progress Note ---
Assessment/Plan Problems: (1) Severe protein-calorie malnutrition (2) Azotemia (3) Dementia (4) Closed intertrochanteric fracture of left hip Assessment/Plan PLAN Fall precautions PT/OT UA with evidence of UTI continue Bactrim urine cx + E coli ID follows Subjective ROS Limited/Unobtainable: Yes Constitutional: Reports: anorexia, fatigue Neurologic: Reports: confusion, weakness Allergies: Coded Allergies: SULFAMETHOXAZOLE (Verified Allergy, Mild, itching, 08/19/16) TRIMETHOPRIM (Verified Allergy, Mild, itching, 08/19/16) DIAZEPAM (Verified Allergy, Unknown, 08/10/16) ERYTHROMYCIN BASE (Verified Allergy, Unknown, 08/10/16) LATEX (Verified Allergy, Unknown, 08/10/16) MEPERIDINE (Verified Allergy, Unknown, 08/10/16) MOXIFLOXACIN (Verified Allergy, Unknown, 08/10/16) PENICILLINS (Verified Allergy, Unknown, 08/10/16) THIOPENTAL (Verified Allergy, Unknown, 08/10/16) Uncoded Allergies: iv dye (Allergy, Unknown, 08/10/16) Objective Last 24 Hour Vital Signs Date Time Temp Pulse Resp B/P Pulse Ox O2 Delivery O2 Flow Rate FiO2 08/15/16 20:00 97.9 83 18 125/59 94 Room Air 08/15/16 18:00 96.3 08/15/16 16:30 96.3 85 18 120/78 98 Room Air 08/15/16 12:05 97.0 92 20 133/70 98 08/15/16 11:13 97.0 08/15/16 08:23 102 128/76 08/15/16 08:00 97.5 102 20 128/76 93 Nasal Cannula 2.0 08/15/16 04:00 97.0 95 20 144/65 97 Nasal Cannula 2.0 08/15/16 00:00 97.2 95 16 139/79 96 Nasal Cannula 2.0 Intake and Output 08/14/16 08/15/16 19:00 07:00 Intake Total 670 ml 640 ml Output Total 100 ml 250 ml Balance 570 ml 390 ml Intake Oral 420 ml 240 ml IV Total 250 ml 400 ml Output Urine Total 100 ml 250 ml General Appearance: no acute distress HEENT: normocephalic, atraumatic, anicteric, PERRL Respiratory/Chest: chest wall non-tender, decreased breath sounds, accessory muscle use Breasts: no masses Cardiovascular: normal peripheral pulses, normal rate, no JVD Abdomen: normal bowel sounds, soft, non tender, no organomegaly Genitourinary: normal external genitalia Extremities: no cyanosis Skin: no rash 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, responsive, disoriented Laboratory Tests 08/15/16 05:30: White Blood Count 7.9, Red Blood Count 3.89L, Hemoglobin 11.7L, Hematocrit 35.0L , Mean Corpuscular Volume 90, Mean Corpuscular Hemoglobin 30.0, Mean Corpuscular Hemoglobin Concent 33.4, Red Cell Distribution Width 14.0, Platelet Count 243, Mean Platelet Volume 6.5, Neutrophils (%) (Auto) 76.7H, Lymphocytes ( %) (Auto) 13.4L, Monocytes (%) (Auto) 6.4, Eosinophils (%) (Auto) 2.7, Basophils (%) (Auto) 0.9, Sodium Level 137, Potassium Level 4.8, Chloride Level 98, Carbon Dioxide Level 26, Anion Gap 13, Blood Urea Nitrogen 20, Creatinine 0.4L, Estimat Glomerular Filtration Rate , Glucose Level 117H, Calcium Level 8.1L Current Medications Medications (Trade) Dose Ordered Sig/Taiwo Route PRN Reason Start Time Stop Time Status Last Admin Dose Admin Acetaminophen (Tylenol) 650 mg Q4H PRN ORAL fever 08/10/16 07:00 09/09/16 06:59 08/13/16 20:31 Acetaminophen (Tylenol) 650 mg Q4H PRN ORAL Mild Pain (Pain Scale 1-3) 08/12/16 17:15 09/11/16 17:14 Acetaminophen/ Hydrocodone Bitart ([place] 7.5/325) 1 ea Q4H PRN ORAL Moderate Pain (Pain Scale 4-6) 08/12/16 17:15 08/19/16 17:14 08/15/16 20:55 Al Hydroxide/Mg Hydroxide (Mylanta II) 30 ml Q6H PRN ORAL dyspepsia 08/10/16 07:00 09/09/16 06:59 Bisacodyl (Dulcolax) 10 mg Q12H PRN RECTAL Constipation FIRST LINE AGENT 08/12/16 17:15 09/11/16 17:14 08/15/16 08:27 Celecoxib (CeleBREX) 200 mg DAILY ORAL 08/13/16 09:00 09/12/16 08:59 08/15/16 08:20 Dextrose (Dextrose 50%) STAT PRN IV Hypoglycemia 08/10/16 07:00 09/09/16 06:59 Dextrose/Sodium Chloride (D5ns) 1,000 ml @ 50 mls/hr Q20H IV 08/14/16 12:00 09/13/16 11:59 08/15/16 05:48 Docusate Sodium (Colace) 100 mg THREE TIMES A DAY ORAL 08/12/16 21:00 09/11/16 20:59 08/15/16 16:48 Enoxaparin Sodium (Lovenox) 30 mg DAILY SUBQ 08/13/16 09:00 08/23/16 08:59 08/15/16 08:26 Ferrous Sulfate (Feosol) 325 mg THREE TIMES A DAY ORAL 08/12/16 21:00 09/11/16 20:59 08/15/16 16:48 Fluticasone Propionate (Flonase) 2 spray DAILY NASAL 08/10/16 09:00 09/09/16 08:59 08/15/16 08:21 Hydromorphone HCl 1 mg 1 mg Q4H PRN SUBQ Severe Pain (Pain Scale 7-10) 08/12/16 20:30 08/19/16 20:29 08/15/16 10:43 Lorazepam (Ativan 2mg/ml 1ml) 0.4 mg Q4H PRN IM Agitation 08/10/16 12:15 08/17/16 12:14 08/15/16 17:37 Metoprolol Succinate (Toprol XL) 25 mg DAILY ORAL 08/15/16 09:00 09/14/16 08:59 08/15/16 08:23 Ondansetron HCl (Zofran) 4 mg Q6H PRN IVP Nausea & Vomiting 08/10/16 07:00 09/09/16 06:59 Oxycodone HCl (Roxicodone) 10 mg EVERY 8 HOURS ORAL 08/15/16 18:47 08/17/16 13:59 Polyethylene Glycol (Miralax) 17 gm HSPRN PRN ORAL Constipation 08/10/16 07:00 09/09/16 06:59 08/14/16 22:02 Zolpidem Tartrate (Ambien) 5 mg HSPRN PRN ORAL Insomnia 08/10/16 07:00 09/09/16 06:59 KYRA MOMIN Aug 15, 2016 22:09
--- NOTE | 2016-08-15 22:12 | Cardiology Progress Note ---
Assessment/Plan Assessment/Plan 1. Hypotensive event, resolved, now normal BP. 2. S/P left Hip ORIF, POD # 2, no perioperative cardiac events. 3. Accelerated HTN, on metoprolol. Subjective Subjective No cardiac events. Objective Last 24 Hour Vital Signs Date Time Temp Pulse Resp B/P Pulse Ox O2 Delivery O2 Flow Rate FiO2 08/15/16 20:00 97.9 83 18 125/59 94 Room Air 08/15/16 18:00 96.3 08/15/16 16:30 96.3 85 18 120/78 98 Room Air 08/15/16 12:05 97.0 92 20 133/70 98 08/15/16 11:13 97.0 08/15/16 08:23 102 128/76 08/15/16 08:00 97.5 102 20 128/76 93 Nasal Cannula 2.0 08/15/16 04:00 97.0 95 20 144/65 97 Nasal Cannula 2.0 08/15/16 00:00 97.2 95 16 139/79 96 Nasal Cannula 2.0 Intake and Output 08/14/16 08/15/16 19:00 07:00 Intake Total 670 ml 640 ml Output Total 100 ml 250 ml Balance 570 ml 390 ml Intake Oral 420 ml 240 ml IV Total 250 ml 400 ml Output Urine Total 100 ml 250 ml 2D Echo: LVEF 60-65%, Mild LVH, Mild AR Laboratory Tests Test 08/15/16 05:30 White Blood Count 7.9 K/UL (4.8-10.8) Red Blood Count 3.89 M/UL (4.20-5.40) L Hemoglobin 11.7 G/DL (12.0-16.0) L Hematocrit 35.0 % (37.0-47.0) L Mean Corpuscular Volume 90 FL (80-99) Mean Corpuscular Hemoglobin 30.0 PG (27.0-31.0) Mean Corpuscular Hemoglobin Concent 33.4 G/DL (32.0-36.0) Red Cell Distribution Width 14.0 % (11.6-14.8) Platelet Count 243 K/UL (150-450) Mean Platelet Volume 6.5 FL (6.5-10.1) Neutrophils (%) (Auto) 76.7 % (45.0-75.0) H Lymphocytes (%) (Auto) 13.4 % (20.0-45.0) L Monocytes (%) (Auto) 6.4 % (1.0-10.0) Eosinophils (%) (Auto) 2.7 % (0.0-3.0) Basophils (%) (Auto) 0.9 % (0.0-2.0) Sodium Level 137 mEQ/L (135-145) Potassium Level 4.8 mEQ/L (3.4-4.9) Chloride Level 98 mEQ/L (98-107) Carbon Dioxide Level 26 mEQ/L (20-30) Anion Gap 13 (5-15) Blood Urea Nitrogen 20 mg/dL (7-23) Creatinine 0.4 mg/dL (0.5-0.9) L Estimat Glomerular Filtration Rate mL/min (>60) Glucose Level 117 mg/dL (74-106) H Calcium Level 8.1 mg/dL (8.6-10.2) L Objective HEENT: Atraumatic and normocephalic. Anicteric. Pupils are equal, round, and accommodation. Dry mucosal membranes. Pupils are equal, round, and reactive to light and accommodation. Extraocular muscles intact. NECK: JVP is less than 5 cm. No carotid bruits. Carotid upstrokes 2+ bilaterally. CARDIOVASCULAR: Normal S1, S2. Irregularly irregular rhythm. A 2/6 mid systolic murmur in the left sternal border. PMI is at fourth intercostal space in the midclavicular line. LUNGS: Clear to auscultation bilaterally. ABDOMEN: Soft, nontender, and nondistended. No hepatosplenomegaly. Positive bowel sounds. EXTREMITIES: No edema, clubbing or cyanosis right leg. VINH GRIMALDO Aug 15, 2016 22:12
[2016-08-16] MEDS: HYDROmorphone 1mg/ml Carpuject SUBQ PRN ×2 (00:39→08:36)
[2016-08-16 01:00] VITALS: BP 121/59
[2016-08-16] MEDS: LORazepam Inj 2mg/ml 1ml IM PRN ×3 (02:40→19:08)
[2016-08-16] MEDS: D5NS 1,000 ML IV SCH (04:00)
[2016-08-16] MEDS: oxyCODONE 5mg IR tab ORAL SCH ×3 (05:32→22:04)
[2016-08-16 06:56] LABS: BASOPHILS % (AUTO) 0.8 % (0.0-2.0); EOSINOPHILS % (AUTO) 3.2 % (0.0-3.0); MEAN CORPUSCULAR HGB CONC 32.4 G/DL (32.0-36.0); MEAN CORPUSCULAR VOLUME 92 FL (80-99); MEAN PLATELET VOLUME 6.4 FL (6.5-10.1); MONOCYTES % (AUTO) 9.3 % (1.0-10.0); NEUTROPHILS % (AUTO) 70.8 % (45.0-75.0); PLATELET COUNT 248 K/UL (150-450); RED BLOOD COUNT 4.02 M/UL (4.20-5.40); RED CELL DISTRIBUTION WIDTH 14.6 % (11.6-14.8); WHITE BLOOD COUNT 7.5 K/UL (4.8-10.8)
[2016-08-16 07:07] LABS: INR 1.1 (0.9-1.1); PROTHROMBIN TIME 11.5 SEC (9.30-11.50)
--- NOTE | 2016-08-16 07:13 | Pulmonology Progress Note ---
Assessment/Plan Assessment/Plan ASSESSMENT s/p fall Lt forearm laceration comminuted left proximal femoral intratrochanteric fracture. s/p ORIF left hip fracture UTI elevated transaminase dementia severe protein calorie malnutrition anemia s/p blood transfusion HTN urgency prerenal azotemia hyperkalemia -resolved left sacral st 2, Rt sacral DTI - POA PLAN OF CARE [facility] floor ECHO with preserved EF 60-65% cleared for surgery s/p surgery surgery follows fall precautions PT/OT UA with evidence of UTI start Bactrim fup with urine cx elevated transaminase, get hepatitis panel and abdominal US nephro follows prerenal azotemia likely due to dehydration, BUN trending down IVF changed to without K, K stable avoid nephrotoxic , monitor renal parameters, lytes, stable BP management with BB, cardio follows wound care as per wound care nurse recommendation pain management bowel regimen monitor HH, at baseline dc plan to SNF fup with surgery in 2 weeks case discussed and evaluated by supervising physician Subjective Allergies: Coded Allergies: DIAZEPAM (Verified Allergy, Unknown, 08/10/16) ERYTHROMYCIN BASE (Verified Allergy, Unknown, 08/10/16) LATEX (Verified Allergy, Unknown, 08/10/16) MEPERIDINE (Verified Allergy, Unknown, 08/10/16) MOXIFLOXACIN (Verified Allergy, Unknown, 08/10/16) PENICILLINS (Verified Allergy, Unknown, 08/10/16) THIOPENTAL (Verified Allergy, Unknown, 08/10/16) Uncoded Allergies: iv dye (Allergy, Unknown, 08/10/16) Subjective afebrile, no leukocytosis elevated LFT^and bili UA with evidence of UTI Objective Last 24 Hour Vital Signs Date Time Temp Pulse Resp B/P Pulse Ox O2 Delivery O2 Flow Rate FiO2 08/16/16 01:00 97.9 89 18 121/59 98 Room Air 08/15/16 22:23 96.3 08/15/16 20:00 97.9 83 18 125/59 94 Room Air 08/15/16 16:30 96.3 85 18 120/78 98 Room Air 08/15/16 12:05 97.0 92 20 133/70 98 08/15/16 11:13 97.0 08/15/16 08:23 102 128/76 08/15/16 08:00 97.5 102 20 128/76 93 Nasal Cannula 2.0 Intake and Output 08/15/16 08/16/16 19:00 07:00 Intake Total 590 ml 660 ml Output Total 150 ml 250 ml Balance 440 ml 410 ml Intake Oral 240 ml 360 ml IV Total 350 ml 300 ml Output Urine Total 150 ml 250 ml General Appearance: no acute distress, cachetic HEENT: normocephalic, atraumatic, anicteric Respiratory/Chest: lungs clear, no respiratory distress, no accessory muscle use Cardiovascular: normal peripheral pulses, normal rate, no JVD Abdomen: normal bowel sounds, soft, non tender, non distended Genitourinary: normal external genitalia Extremities: no edema Skin: other - left hip with dressing C/D/I Neurologic/Psychiatric: abnormal gait, alert, responsive Laboratory Tests 08/16/16 06:00: White Blood Count 7.5, Red Blood Count 4.02L, Hemoglobin 12.0, Hematocrit 37.1, Mean Corpuscular Volume 92, Mean Corpuscular Hemoglobin 30.0, Mean Corpuscular Hemoglobin Concent 32.4, Red Cell Distribution Width 14.6, Platelet Count 248, Mean Platelet Volume 6.4L, Neutrophils (%) (Auto) 70.8, Lymphocytes (%) (Auto) 16.0L, Monocytes (%) (Auto) 9.3, Eosinophils (%) (Auto) 3.2H, Basophils (%) ( Auto) 0.8, Prothrombin Time 11.5, Prothromb Time International Ratio 1.1, Activated Partial Thromboplast Time 30, Sodium Level [Pending], Potassium Level [Pending], Chloride Level [Pending], Carbon Dioxide Level [Pending], Blood Urea Nitrogen [Pending], Creatinine [Pending], Estimat Glomerular Filtration Rate [ Pending], Glucose Level [Pending], Calcium Level [Pending], Phosphorus Level [ Pending], Magnesium Level [Pending], Total Bilirubin [Pending], Aspartate Amino Transf (AST/SGOT) [Pending], Alanine Aminotransferase (ALT/SGPT) [Pending], Alkaline Phosphatase [Pending], Total Protein [Pending], Albumin [Pending], Globulin [Pending] Current Medications Medications (Trade) Dose Ordered Sig/Taiwo Route PRN Reason Start Time Stop Time Status Last Admin Dose Admin Acetaminophen (Tylenol) 650 mg Q4H PRN ORAL fever 08/10/16 07:00 4/24/17 06:59 08/13/16 20:31 Acetaminophen (Tylenol) 650 mg Q4H PRN ORAL Mild Pain (Pain Scale 1-3) 08/12/16 17:15 09/11/16 17:14 Acetaminophen/ Hydrocodone Bitart ([place] 7.5/325) 1 ea Q4H PRN ORAL Moderate Pain (Pain Scale 4-6) 08/12/16 17:15 08/19/16 17:14 08/15/16 20:55 Al Hydroxide/Mg Hydroxide (Mylanta II) 30 ml Q6H PRN ORAL dyspepsia 08/10/16 07:00 09/09/16 06:59 Bisacodyl (Dulcolax) 10 mg Q12H PRN RECTAL Constipation FIRST LINE AGENT 08/12/16 17:15 09/11/16 17:14 08/15/16 08:27 Celecoxib (CeleBREX) 200 mg DAILY ORAL 08/13/16 09:00 09/12/16 08:59 08/15/16 08:20 Dextrose (Dextrose 50%) STAT PRN IV Hypoglycemia 08/10/16 07:00 09/09/16 06:59 Dextrose/Sodium Chloride (D5ns) 1,000 ml @ 50 mls/hr Q20H IV 08/14/16 12:00 09/13/16 11:59 08/16/16 04:00 Docusate Sodium (Colace) 100 mg THREE TIMES A DAY ORAL 08/12/16 21:00 09/11/16 20:59 08/15/16 16:48 Enoxaparin Sodium (Lovenox) 30 mg DAILY SUBQ 08/13/16 09:00 08/23/16 08:59 08/15/16 08:26 Ferrous Sulfate (Feosol) 325 mg THREE TIMES A DAY ORAL 08/12/16 21:00 09/11/16 20:59 08/15/16 16:48 Fluticasone Propionate (Flonase) 2 spray DAILY NASAL 08/10/16 09:00 09/09/16 08:59 08/15/16 08:21 Hydromorphone HCl 1 mg 1 mg Q4H PRN SUBQ Severe Pain (Pain Scale 7-10) 08/12/16 20:30 08/19/16 20:29 08/16/16 00:39 Lorazepam (Ativan 2mg/ml 1ml) 0.4 mg Q4H PRN IM Agitation 08/10/16 12:15 08/17/16 12:14 08/16/16 02:40 Metoprolol Succinate (Toprol XL) 25 mg DAILY ORAL 08/15/16 09:00 09/14/16 08:59 08/15/16 08:23 Ondansetron HCl (Zofran) 4 mg Q6H PRN IVP Nausea & Vomiting 08/10/16 07:00 09/09/16 06:59 Oxycodone HCl (Roxicodone) 10 mg EVERY 8 HOURS ORAL 08/15/16 18:47 08/17/16 13:59 08/16/16 05:32 Polyethylene Glycol (Miralax) 17 gm HSPRN PRN ORAL Constipation 08/10/16 07:00 09/09/16 06:59 08/14/16 22:02 Zolpidem Tartrate (Ambien) 5 mg HSPRN PRN ORAL Insomnia 08/10/16 07:00 09/09/16 06:59 Alonso ([facility])Janis NP Aug 16, 2016 07:13
[2016-08-16 07:15] LABS: MAGNESIUM 1.9 mg/dL (1.7-2.5); PHOSPHORUS 2.8 mg/dL (2.5-4.8)
[2016-08-16 07:35] LABS: ALANINE AMINOTRANSFERASE 83 U/L (3-33); ALBUMIN/GLOBULIN RATIO 0.9 (1.0-2.7); ANION GAP 14 (5-15); ASPARTATE AMINO TRANSFERASE 128 U/L (5-40); CALCIUM 8.3 mg/dL (8.6-10.2); CARBON DIOXIDE 24 mEQ/L (20-30); CHLORIDE 100 mEQ/L (98-107); CREATININE 0.5 mg/dL (0.5-0.9); HEMOLYSIS 3; POTASSIUM 4.5 mEQ/L (3.4-4.9); SODIUM 138 mEQ/L (135-145); TOTAL PROTEIN 5.3 g/dL (6.6-8.7)
[2016-08-16 07:36] LABS: BILIRUBIN,DIRECT 1.5 mg/dL (0.1-0.3)
[2016-08-16 07:43] LABS: APPEARANCE,URINE CLOUDY; KETONES,URINE 1+ (NEGATIVE); LEUKOCYTE ESTERASE ,URINE 2+ (NEGATIVE); NITRITE,URINE POSITIVE (NEGATIVE); PH,URINE 6.5 (4.5-8.0); PROTEIN,URINE 3+ (NEGATIVE); UROBILINOGEN,URINE 4 MG/DL (0.0-1.0)
[2016-08-16 08:00] VITALS: BP 134/76
[2016-08-16 08:18] LABS: BACTERIA,URINE FEW /HPF; ICTOTEST POS; SQUAMOUS EPITHELIAL CELL,UR OCCASIONAL /LPF (NONE/OCC)
[2016-08-16] MEDS: Flonase Nasal Inhaler 16gm NASAL SCH (09:51)
[2016-08-16] MEDS: celeBREX 200mg Cap **SURGERY PATIENTS ONLY ORAL SCH (09:52)
[2016-08-16] MEDS: Miralax 17gm pkt ORAL PRN (09:52)
[2016-08-16] MEDS: Docusate 100mg tablet ORAL SCH ×3 (09:52→18:10)
[2016-08-16] MEDS: Enoxaparin 30mg Inj SUBQ SCH (09:53)
--- NOTE | 2016-08-16 10:48 | Diagnostic Imaging Report ---
Indication: Dyspnea Comparison: 08/12/16 A single view chest radiograph was obtained. Findings: Mild reticular densities are present at the lung bases. Some of this is due to atelectasis. Heart size is borderline enlarged. There is eventration of the right hemidiaphragm versus a small left hernia unchanged compared to a study. Impression Basilar atelectasis. Small pleural effusions may be present. Diaphragmatic hernia versus eventration. No significant change.
[2016-08-16] MEDS: Bactrim SS Tab ORAL SCH ×2 (11:39→22:04)
[2016-08-16 12:00] VITALS: BP 136/76
--- NOTE | 2016-08-16 13:02 | Nephrology Progress Note ---
Assessment/Plan Assessment 1. hyperkalemia 2. Prerenal azotemia. 3. Hematuria. 4. Elevated blood sugar, diabetes is a possibility. 5. Uncontrolled blood pressure. Plan plan change ivf no need for Kayexalate replace electrolyte as need monitoring renal function avoid NSAID Subjective Constitutional: Reports: no symptoms HEENT: Reports: no symptoms Genitourinary: Reports: no symptoms Neurologic/Psychiatric: Reports: no symptoms Subjective awake and alert poor appetite Objective Objective Last 24 Hour Vital Signs Date Time Temp Pulse Resp B/P Pulse Ox O2 Delivery O2 Flow Rate FiO2 08/16/16 12:00 97.7 80 20 136/76 95 Room Air 08/16/16 09:52 92 134/76 08/16/16 09:06 97.0 08/16/16 08:00 97.0 92 20 134/76 96 Room Air 08/16/16 01:00 97.9 89 18 121/59 98 Room Air 08/15/16 22:23 96.3 08/15/16 20:00 97.9 83 18 125/59 94 Room Air 08/15/16 16:30 96.3 85 18 120/78 98 Room Air Intake and Output 08/15/16 08/16/16 19:00 07:00 Intake Total 590 ml 710 ml Output Total 150 ml 250 ml Balance 440 ml 460 ml Intake Oral 240 ml 360 ml IV Total 350 ml 350 ml Output Urine Total 150 ml 250 ml Laboratory Tests 08/16/16 06:00: White Blood Count 7.5, Red Blood Count 4.02L, Hemoglobin 12.0, Hematocrit 37.1, Mean Corpuscular Volume 92, Mean Corpuscular Hemoglobin 30.0, Mean Corpuscular Hemoglobin Concent 32.4, Red Cell Distribution Width 14.6, Platelet Count 248, Mean Platelet Volume 6.4L, Neutrophils (%) (Auto) 70.8, Lymphocytes (%) (Auto) 16.0L, Monocytes (%) (Auto) 9.3, Eosinophils (%) (Auto) 3.2H, Basophils (%) ( Auto) 0.8, Prothrombin Time 11.5, Prothromb Time International Ratio 1.1, Activated Partial Thromboplast Time 30, Urine Color Yasemin, Urine Appearance Cloudy, Urine pH 6.5, Urine Specific [place] 1.020, Urine Protein 3+H, Urine Glucose (UA) Negative, Urine Ketones 1+H, Urine Occult Blood 5+H, Urine Nitrite PositiveH, Urine Bilirubin 1+H, Urine Ictotest Pos, Urine Urobilinogen 4H, Urine Leukocyte Esterase 2+H, Urine RBC 10-15H, Urine WBC 5-10H, Urine Squamous Epithelial Cells Occasional, Urine Bacteria Few, Sodium Level 138, Potassium Level 4.5, Chloride Level 100, Carbon Dioxide Level 24, Anion Gap 14, Blood Urea Nitrogen 23, Creatinine 0.5, Estimat Glomerular Filtration Rate , Glucose Level 117H, Calcium Level 8.3L, Phosphorus Level 2.8, Magnesium Level 1.9, Total Bilirubin 2.3H, Direct Bilirubin 1.5H, Aspartate Amino Transf (AST/SGOT) 128H, Alanine Aminotransferase (ALT/SGPT) 83H, Alkaline Phosphatase 257H, Total Protein 5.3L, Albumin 2.6L, Globulin 2.7, Albumin/Globulin Ratio 0.9L Height (Feet): 5 Height (Inches): 0.00 Weight (Pounds): 91 Objective HEAD AND NECK: No JVD. No LAD. No thyromegaly. Extraocular movement intact. Pupils are reactive to light and accommodation. LUNGS: Clear to auscultation. CARDIAC: Regular rate and rhythm. S1-S2. No murmur. No rub. ABDOMEN: Soft, nontender, and nondistended. EXTREMITIES: The patient's left hip is internally rotated with severe pain to touch. KATT LAURENT Aug 16, 2016 13:02
[2016-08-16 13:43] LABS: VITAMIN D 25-OH TOTAL 9.6 ng/mL (.)
--- NOTE | 2016-08-16 13:43 | Infectious Diseases Prog Note ---
Assessment/Plan Problems: (1) UTI (urinary tract infection) Assessment & Plan: on bactrim , send urine culture (2) Closed intertrochanteric fracture of left hip Assessment & Plan: S/P ORIF, ortho is following, continue PT/OT (3) Laceration of forearm, left Assessment & Plan: healing well, continue local wound care (4) Dementia Assessment & Plan: continue supportive care Subjective Allergies: Coded Allergies: DIAZEPAM (Verified Allergy, Unknown, 08/10/16) ERYTHROMYCIN BASE (Verified Allergy, Unknown, 08/10/16) LATEX (Verified Allergy, Unknown, 08/10/16) MEPERIDINE (Verified Allergy, Unknown, 08/10/16) MOXIFLOXACIN (Verified Allergy, Unknown, 08/10/16) PENICILLINS (Verified Allergy, Unknown, 08/10/16) THIOPENTAL (Verified Allergy, Unknown, 08/10/16) Uncoded Allergies: iv dye (Allergy, Unknown, 08/10/16) Objective Vital Signs Last 24 Hour Vital Signs Date Time Temp Pulse Resp B/P Pulse Ox O2 Delivery O2 Flow Rate FiO2 08/16/16 12:00 97.7 80 20 136/76 95 Room Air 08/16/16 09:52 92 134/76 08/16/16 09:06 97.0 08/16/16 08:00 97.0 92 20 134/76 96 Room Air 08/16/16 01:00 97.9 89 18 121/59 98 Room Air 08/15/16 22:23 96.3 08/15/16 20:00 97.9 83 18 125/59 94 Room Air 08/15/16 16:30 96.3 85 18 120/78 98 Room Air Height (Feet): 5 Height (Inches): 0.00 Weight (Pounds): 91 Laboratory Tests Test 08/16/16 06:00 White Blood Count 7.5 K/UL (4.8-10.8) Red Blood Count 4.02 M/UL (4.20-5.40) L Hemoglobin 12.0 G/DL (12.0-16.0) Hematocrit 37.1 % (37.0-47.0) Mean Corpuscular Volume 92 FL (80-99) Mean Corpuscular Hemoglobin 30.0 PG (27.0-31.0) Mean Corpuscular Hemoglobin Concent 32.4 G/DL (32.0-36.0) Red Cell Distribution Width 14.6 % (11.6-14.8) Platelet Count 248 K/UL (150-450) Mean Platelet Volume 6.4 FL (6.5-10.1) L Neutrophils (%) (Auto) 70.8 % (45.0-75.0) Lymphocytes (%) (Auto) 16.0 % (20.0-45.0) L Monocytes (%) (Auto) 9.3 % (1.0-10.0) Eosinophils (%) (Auto) 3.2 % (0.0-3.0) H Basophils (%) (Auto) 0.8 % (0.0-2.0) Prothrombin Time 11.5 SEC (9.30-11.50) Prothromb Time International Ratio 1.1 (0.9-1.1) Activated Partial Thromboplast Time 30 SEC (23-33) Urine Color Yasemin Urine Appearance Cloudy Urine pH 6.5 (4.5-8.0) Urine Specific [place] 1.020 (1.005-1.035) Urine Protein 3+ (NEGATIVE) H Urine Glucose (UA) Negative (NEGATIVE) Urine Ketones 1+ (NEGATIVE) H Urine Occult Blood 5+ (NEGATIVE) H Urine Nitrite Positive (NEGATIVE) H Urine Bilirubin 1+ (NEGATIVE) H Urine Ictotest Pos Urine Urobilinogen 4 MG/DL (0.0-1.0) H Urine Leukocyte Esterase 2+ (NEGATIVE) H Urine RBC 10-15 /HPF (0 - 2) H Urine WBC 5-10 /HPF (0 - 2) H Urine Squamous Epithelial Cells Occasional /LPF Urine Bacteria Few /HPF (NONE) Sodium Level 138 mEQ/L (135-145) Potassium Level 4.5 mEQ/L (3.4-4.9) Chloride Level 100 mEQ/L (98-107) Carbon Dioxide Level 24 mEQ/L (20-30) Anion Gap 14 (5-15) Blood Urea Nitrogen 23 mg/dL (7-23) Creatinine 0.5 mg/dL (0.5-0.9) Estimat Glomerular Filtration Rate mL/min (>60) Glucose Level 117 mg/dL (74-106) H Calcium Level 8.3 mg/dL (8.6-10.2) L Phosphorus Level 2.8 mg/dL (2.5-4.8) Magnesium Level 1.9 mg/dL (1.7-2.5) Total Bilirubin 2.3 mg/dL (0.0-1.2) H Direct Bilirubin 1.5 mg/dL (0.1-0.3) H Aspartate Amino Transf (AST/SGOT) 128 U/L (5-40) H Alanine Aminotransferase (ALT/SGPT) 83 U/L (3-33) H Alkaline Phosphatase 257 U/L (35-104) H Total Protein 5.3 g/dL (6.6-8.7) L Albumin 2.6 g/dL (3.5-5.2) L Globulin 2.7 g/dL Albumin/Globulin Ratio 0.9 (1.0-2.7) L Current Medications Medications (Trade) Dose Ordered Sig/Taiwo Route PRN Reason Start Time Stop Time Status Last Admin Dose Admin Acetaminophen (Tylenol) 650 mg Q4H PRN ORAL fever 08/10/16 07:00 09/09/16 06:59 08/13/16 20:31 Acetaminophen (Tylenol) 650 mg Q4H PRN ORAL Mild Pain (Pain Scale 1-3) 08/12/16 17:15 09/11/16 17:14 Acetaminophen/ Hydrocodone Bitart ([place] 7.5/325) 1 ea Q4H PRN ORAL Moderate Pain (Pain Scale 4-6) 08/12/16 17:15 08/19/16 17:14 08/15/16 20:55 Al Hydroxide/Mg Hydroxide (Mylanta II) 30 ml Q6H PRN ORAL dyspepsia 08/10/16 07:00 09/09/16 06:59 Bisacodyl (Dulcolax) 10 mg Q12H PRN RECTAL Constipation FIRST LINE AGENT 08/12/16 17:15 09/11/16 17:14 08/15/16 08:27 Celecoxib (CeleBREX) 200 mg DAILY ORAL 08/13/16 09:00 09/12/16 08:59 08/16/16 09:52 Dextrose (Dextrose 50%) STAT PRN IV Hypoglycemia 08/10/16 07:00 09/09/16 06:59 Dextrose/Sodium Chloride (D5ns) 1,000 ml @ 50 mls/hr Q20H IV 08/14/16 12:00 09/13/16 11:59 08/16/16 04:00 Docusate Sodium (Colace) 100 mg THREE TIMES A DAY ORAL 08/12/16 21:00 09/11/16 20:59 08/16/16 09:52 Enoxaparin Sodium (Lovenox) 30 mg DAILY SUBQ 08/13/16 09:00 08/23/16 08:59 08/16/16 09:53 Ferrous Sulfate (Feosol) 325 mg THREE TIMES A DAY ORAL 08/12/16 21:00 09/11/16 20:59 08/16/16 09:52 Fluticasone Propionate (Flonase) 2 spray DAILY NASAL 08/10/16 09:00 09/09/16 08:59 08/16/16 09:51 Hydromorphone HCl 1 mg 1 mg Q4H PRN SUBQ Severe Pain (Pain Scale 7-10) 08/12/16 20:30 08/19/16 20:29 08/16/16 08:36 Lorazepam (Ativan 2mg/ml 1ml) 0.4 mg Q4H PRN IM Agitation 08/10/16 12:15 08/17/16 12:14 08/16/16 12:17 Metoprolol Succinate (Toprol XL) 25 mg DAILY ORAL 08/15/16 09:00 09/14/16 08:59 08/16/16 09:52 Ondansetron HCl (Zofran) 4 mg Q6H PRN IVP Nausea & Vomiting 08/10/16 07:00 09/09/16 06:59 Oxycodone HCl (Roxicodone) 10 mg EVERY 8 HOURS ORAL 08/15/16 18:47 08/17/16 13:59 08/16/16 13:15 Polyethylene Glycol (Miralax) 17 gm HSPRN PRN ORAL Constipation 08/10/16 07:00 09/09/16 06:59 08/16/16 09:52 Trimethoprim/ Sulfamethoxazole (Bactrim Single Strength) 1 ea Q12HR ORAL 08/16/16 11:00 08/23/16 10:59 08/16/16 11:39 Zolpidem Tartrate (Ambien) 5 mg HSPRN PRN ORAL Insomnia 08/10/16 07:00 09/09/16 06:59 Yayo Salas M.D. Aug 16, 2016 13:43
--- NOTE | 2016-08-16 14:32 | General Progress Note ---
Assessment/Plan Problem List: (1) Laceration of forearm, left ICD Codes: S51.812A - Laceration without foreign body of left forearm, initial encounter SNOMED: 674676092, 985364071 Qualifiers: Qualified Codes: S51.812A - Laceration without foreign body of left forearm , initial encounter (2) Fall ICD Codes: W19.XXXA - Unspecified fall, initial encounter SNOMED: 5165096, 182260171 Qualifiers: Qualified Codes: W19.XXXA - Unspecified fall, initial encounter (3) Dementia ICD Codes: F03.90 - Unspecified dementia without behavioral disturbance SNOMED: 29771541 (4) Severe protein-calorie malnutrition ICD Codes: E43 - Unspecified severe protein-calorie malnutrition SNOMED: 721872774 (5) Closed intertrochanteric fracture of left hip ICD Codes: S72.142A - Displaced intertrochanteric fracture of left femur, initial encounter for closed fracture SNOMED: 29271519 Qualifiers: Qualified Codes: S72.142A - Displaced intertrochanteric fracture of left femur, initial encounter for closed fracture (6) Azotemia ICD Codes: R79.89 - Other specified abnormal findings of blood chemistry SNOMED: 574967500 Status: stable, progressing, tolerating diet Assessment/Plan ot pt diet abx dc w hh Subjective Constitutional: Reports: weakness Allergies: Coded Allergies: DIAZEPAM (Verified Allergy, Unknown, 08/10/16) ERYTHROMYCIN BASE (Verified Allergy, Unknown, 08/10/16) LATEX (Verified Allergy, Unknown, 08/10/16) MEPERIDINE (Verified Allergy, Unknown, 08/10/16) MOXIFLOXACIN (Verified Allergy, Unknown, 08/10/16) PENICILLINS (Verified Allergy, Unknown, 08/10/16) THIOPENTAL (Verified Allergy, Unknown, 08/10/16) Uncoded Allergies: iv dye (Allergy, Unknown, 08/10/16) All Systems: reviewed and negative except above Subjective sleepy calm Objective Last 24 Hour Vital Signs Date Time Temp Pulse Resp B/P Pulse Ox O2 Delivery O2 Flow Rate FiO2 08/16/16 12:00 97.7 80 20 136/76 95 Room Air 08/16/16 09:52 92 134/76 08/16/16 09:06 97.0 08/16/16 08:00 97.0 92 20 134/76 96 Room Air 08/16/16 01:00 97.9 89 18 121/59 98 Room Air 08/15/16 22:23 96.3 08/15/16 20:00 97.9 83 18 125/59 94 Room Air 08/15/16 16:30 96.3 85 18 120/78 98 Room Air Intake and Output 08/15/16 08/16/16 19:00 07:00 Intake Total 590 ml 710 ml Output Total 150 ml 250 ml Balance 440 ml 460 ml Intake Oral 240 ml 360 ml IV Total 350 ml 350 ml Output Urine Total 150 ml 250 ml Laboratory Tests 08/16/16 06:00: White Blood Count 7.5, Red Blood Count 4.02L, Hemoglobin 12.0, Hematocrit 37.1, Mean Corpuscular Volume 92, Mean Corpuscular Hemoglobin 30.0, Mean Corpuscular Hemoglobin Concent 32.4, Red Cell Distribution Width 14.6, Platelet Count 248, Mean Platelet Volume 6.4L, Neutrophils (%) (Auto) 70.8, Lymphocytes (%) (Auto) 16.0L, Monocytes (%) (Auto) 9.3, Eosinophils (%) (Auto) 3.2H, Basophils (%) ( Auto) 0.8, Prothrombin Time 11.5, Prothromb Time International Ratio 1.1, Activated Partial Thromboplast Time 30, Urine Color Yasemin, Urine Appearance Cloudy, Urine pH 6.5, Urine Specific [place] 1.020, Urine Protein 3+H, Urine Glucose (UA) Negative, Urine Ketones 1+H, Urine Occult Blood 5+H, Urine Nitrite PositiveH, Urine Bilirubin 1+H, Urine Ictotest Pos, Urine Urobilinogen 4H, Urine Leukocyte Esterase 2+H, Urine RBC 10-15H, Urine WBC 5-10H, Urine Squamous Epithelial Cells Occasional, Urine Bacteria Few, Sodium Level 138, Potassium Level 4.5, Chloride Level 100, Carbon Dioxide Level 24, Anion Gap 14, Blood Urea Nitrogen 23, Creatinine 0.5, Estimat Glomerular Filtration Rate , Glucose Level 117H, Calcium Level 8.3L, Phosphorus Level 2.8, Magnesium Level 1.9, Total Bilirubin 2.3H, Direct Bilirubin 1.5H, Aspartate Amino Transf (AST/SGOT) 128H, Alanine Aminotransferase (ALT/SGPT) 83H, Alkaline Phosphatase 257H, Total Protein 5.3L, Albumin 2.6L, Globulin 2.7, Albumin/Globulin Ratio 0.9L Height (Feet): 5 Height (Inches): 0.00 Weight (Pounds): 91 General Appearance: lethargic EENT: normal ENT inspection Neck: non-tender, normal alignment, supple Cardiovascular: normal peripheral pulses, normal rate, regular rhythm Respiratory/Chest: chest wall non-tender, lungs clear, normal breath sounds Abdomen: normal bowel sounds, non tender, soft Extremities: normal inspection Edema: no edema noted Arm (L), no edema noted Arm (R), no edema noted Leg (L), no edema noted Leg (R), no edema noted Pedal (L), no edema noted Pedal (R), no edema noted Generalized Neurologic: responsive, motor weakness Skin: normal pigmentation, warm/dry ZARA MAS Aug 16, 2016 14:32
[2016-08-16] MEDS ORDERED: BACTRIM DS TAB1 EAC1 ORAL (14:33)
[2016-08-16 16:00] VITALS: BP 125/67
[2016-08-16] MEDS ORDERED: Fleet's Enema 133ml RECTAL ONE (17:00)
[2016-08-16] MEDS: Norco 7.5mg/325mg tab ORAL PRN ×2 (18:10→23:55)
[2016-08-16] MEDS ORDERED: Magnesium Citrate Liq Btl ORAL ONE (19:20)
--- NOTE | 2016-08-16 19:28 | Consultation ---
DATE OF CONSULTATION: 08/16/2016 INFECTIOUS DISEASE CONSULTATION CONSULTING PHYSICIAN: Yayo Salas M.D. REFERRING PHYSICIAN: Carl Newell D.O. REASON FOR CONSULTATION: Urinary tract infection with multiple antibiotic allergies, recommendation for antibiotic treatment. HISTORY OF PRESENT ILLNESS: The patient is an 85-year-old female with multiple medical problems, who has multiple allergies to antibiotics. She fell at home and sustained left hip fracture with excruciating pain. The patient slipped on her socks and she landed on her left hip side. She underwent open reduction and internal fixation of her left hip and had a Melgar catheter placed and after her surgery, the patient developed urinary tract infection. Her Melgar catheter was removed, and I was consulted by the primary provider for antibiotic choice since she had multiple allergies to antibiotics and she will be discharged home today. As of note, the patient is demented and cannot provide any history. History was mainly obtained from the medical record. REVIEW OF SYSTEMS: Unable to obtain. She is a poor historian. PAST MEDICAL HISTORY: Significant for cervical spine stenosis. PAST SURGICAL HISTORY: Unknown. SOCIAL HISTORY: She lives at home with caregiver. ALLERGIES: She is allergic to diazepam, erythromycin, latex, meperidine, moxifloxacin, penicillin, and thiopental. FAMILY HISTORY: Unable to obtain. SOCIAL HISTORY: She lives at home with caregiver. No recent drugs, tobacco, or alcohol. MEDICATIONS: She is on Bactrim. For the rest of her medications, please refer to the MAR. LABORATORY DATA: Labs showed white count of 7.5, hemoglobin of 12, hematocrit of 37.1, and platelet count of 248,000. BUN of 23 and creatinine of 0.5. Urinalysis was positive for nitrite, +2 leukocyte esterase, WBC 5 to 10, and few bacteria. IMAGING: Chest x-ray on 08/16/2016 showed basilar atelectasis, small pleural effusion, diaphragmatic hernia versus eventration. No significant change. PHYSICAL EXAMINATION: VITAL SIGNS: Temperature 97.7, pulse 80, respirations 20, blood pressure 136/76, and saturation 95% on room air. GENERAL: An elderly female, lying in bed, demented, does not follow commands, not in acute distress. HEENT: Normocephalic and atraumatic. Pupils are reactive to light. Dry oral mucosa. No exudate. NECK: Supple. No lymphadenopathy. CARDIOVASCULAR: Regular rate and rhythm. No murmur. LUNGS: Clear bilaterally. No wheezing or rhonchi. Diminished breathing sounds on the bases. ABDOMEN: Soft, nontender, and nondistended. Positive bowel sounds. No hepatosplenomegaly. No ascites. EXTREMITIES: No edema. No cyanosis. Right hip surgical wound looks intact. No skin erythema or drainage out of the surgical wound. ASSESSMENT AND PLAN: 1. Urinary tract infection. Agree on Bactrim. Send urine culture. Remove Melgar catheter, probably the cause of her urine infection. 2. Closed intertrochanteric fracture of the left hip, status post open reduction and internal fixation. Orthopedics is following. Continue PT and OT at home. 3. Laceration of the left arm seems to be healing well. Continue local wound care. 4. Dementia. Continue supportive care and psychiatric medicines. Follow up with psychiatrist. Please feel free to call with any question. Yayo Salas M.D. DR: GURWINDER JOB#: [id number] CC:
[2016-08-16 20:00] VITALS: BP 127/72
[2016-08-17] VITALS: BP 113/54
[2016-08-17] MEDS ORDERED: Albuterol ud Inhalation HHN PRN
[2016-08-17] MEDS: HYDROmorphone 1mg/ml Carpuject SUBQ PRN ×3 (03:33→17:48)
[2016-08-17 04:00] VITALS: BP 135/59
[2016-08-17] MEDS: oxyCODONE 5mg IR tab ORAL SCH ×2 (06:00→07:09)
[2016-08-17 08:00] VITALS: BP 134/85
[2016-08-17 08:11] LABS: EOSINOPHILS % (AUTO) 2.9 % (0.0-3.0); LYMPHOCYTES % (AUTO) 19.2 % (20.0-45.0); MEAN CORPUSCULAR HEMOGLOBIN 29.3 PG (27.0-31.0); MEAN CORPUSCULAR HGB CONC 31.7 G/DL (32.0-36.0); MEAN CORPUSCULAR VOLUME 92 FL (80-99); MONOCYTES % (AUTO) 9.7 % (1.0-10.0); NEUTROPHILS % (AUTO) 67.3 % (45.0-75.0); PLATELET COUNT 304 K/UL (150-450); RED BLOOD COUNT 4.09 M/UL (4.20-5.40); RED CELL DISTRIBUTION WIDTH 14.5 % (11.6-14.8); WHITE BLOOD COUNT 9.2 K/UL (4.8-10.8)
[2016-08-17 08:28] LABS: ALANINE AMINOTRANSFERASE 89 U/L (3-33); ANION GAP 12 (5-15); ASPARTATE AMINO TRANSFERASE 86 U/L (5-40); CALCIUM 8.3 mg/dL (8.6-10.2); CARBON DIOXIDE 28 mEQ/L (20-30); CHLORIDE 100 mEQ/L (98-107); CREATININE 0.4 mg/dL (0.5-0.9); HEMOLYSIS 4; POTASSIUM 4.6 mEQ/L (3.4-4.9); SODIUM 140 mEQ/L (135-145); TOTAL PROTEIN 5.9 g/dL (6.6-8.7)
[2016-08-17 08:42] LABS: BILIRUBIN,DIRECT 0.4 mg/dL (0.1-0.3)
[2016-08-17] MEDS: celeBREX 200mg Cap **SURGERY PATIENTS ONLY ORAL SCH (09:00)
[2016-08-17] MEDS: Docusate 100mg tablet ORAL SCH ×3 (09:00→18:00)
[2016-08-17] MEDS: Bactrim SS Tab ORAL SCH ×2 (09:00→21:00)
[2016-08-17] MEDS: Flonase Nasal Inhaler 16gm NASAL SCH (09:28)
[2016-08-17] MEDS: Enoxaparin 30mg Inj SUBQ SCH (09:28)
--- NOTE | 2016-08-17 09:56 | Pulmonology Progress Note ---
Assessment/Plan Assessment/Plan ASSESSMENT s/p fall Lt forearm laceration s/p repair of laceration in ED comminuted left proximal femoral intratrochanteric fracture. s/p ORIF left hip fracture UTI elevated transaminase dementia severe protein calorie malnutrition anemia s/p blood transfusion HTN urgency prerenal azotemia hyperkalemia -resolved left sacral st 2, Rt sacral DTI - POA PLAN OF CARE [facility] floor ECHO with preserved EF 60-65% cleared for surgery s/p surgery surgery follows fall precautions PT/OT UA with evidence of UTI continue Bactrim urine cx pending ID on the case now CXR mild atelectasis, no other significant findings elevated transaminase, trending down hepatitis panel and abdominal US nephro follows prerenal azotemia likely due to dehydration, BUN trending down IVF changed to without K, K stable avoid nephrotoxic , monitor renal parameters, lytes, stable BP management with BB, cardio follows wound care as per wound care nurse recommendation pain management bowel regimen monitor HH, at baseline patient declines to go home, desires to go to [facility]- Rehab, discussed with nursing staff, will inform watch case polisher fup with surgery in 2 weeks case discussed and evaluated by supervising physician Subjective Allergies: Coded Allergies: DIAZEPAM (Verified Allergy, Unknown, 08/10/16) ERYTHROMYCIN BASE (Verified Allergy, Unknown, 08/10/16) LATEX (Verified Allergy, Unknown, 08/10/16) MEPERIDINE (Verified Allergy, Unknown, 08/10/16) MOXIFLOXACIN (Verified Allergy, Unknown, 08/10/16) PENICILLINS (Verified Allergy, Unknown, 08/10/16) THIOPENTAL (Verified Allergy, Unknown, 08/10/16) Uncoded Allergies: iv dye (Allergy, Unknown, 08/10/16) Subjective afebrile, no leukocytosis UA with evidence of UTI , culture pending, started on antibiotic 08/16 Objective Last 24 Hour Vital Signs Date Time Temp Pulse Resp B/P Pulse Ox O2 Delivery O2 Flow Rate FiO2 08/17/16 08:00 98.9 103 16 134/85 100 Room Air 08/17/16 06:36 73 18 Nasal Cannula 2.0 08/17/16 04:00 97.9 82 18 135/59 95 Room Air 08/17/16 00:00 97.5 96 19 113/54 95 Room Air 08/16/16 20:00 99.0 87 16 127/72 95 Room Air 08/16/16 16:00 97.2 78 19 125/67 91 Nasal Cannula 2.0 08/16/16 12:00 97.7 80 20 136/76 95 Room Air Intake and Output 08/16/16 08/17/16 19:00 07:00 Intake Total 470 ml 590 ml Balance 470 ml 590 ml Intake Oral 120 ml 240 ml IV Total 350 ml 350 ml # Voids 1 1 Objective General Appearance: no acute distress, cachetic HEENT: normocephalic, atraumatic, anicteric Respiratory/Chest: lungs clear, no respiratory distress, no accessory muscle use Cardiovascular: normal peripheral pulses, normal rate, no JVD Abdomen: normal bowel sounds, soft, non tender, non distended Genitourinary: normal external genitalia Extremities: LUE with erythema, edema, TTP, full ROM with some pain Skin: left hip with dressing C/D/I Neurologic/Psychiatric: abnormal gait, alert, responsive Laboratory Tests 08/17/16 07:58: White Blood Count 9.2, Red Blood Count 4.09L, Hemoglobin 12.0, Hematocrit 37.8, Mean Corpuscular Volume 92, Mean Corpuscular Hemoglobin 29.3, Mean Corpuscular Hemoglobin Concent 31.7L, Red Cell Distribution Width 14.5, Platelet Count 304, Mean Platelet Volume 6.0L, Neutrophils (%) (Auto) 67.3, Lymphocytes (%) (Auto) 19.2L, Monocytes (%) (Auto) 9.7, Eosinophils (%) (Auto) 2.9, Basophils (%) (Auto ) 1.0, Sodium Level 140, Potassium Level 4.6, Chloride Level 100, Carbon Dioxide Level 28, Anion Gap 12, Blood Urea Nitrogen 17, Creatinine 0.4L, Estimat Glomerular Filtration Rate , Glucose Level 167H, Calcium Level 8.3L, Total Bilirubin 1.1, Direct Bilirubin 0.4H, Aspartate Amino Transf (AST/SGOT) 86H, Alanine Aminotransferase (ALT/SGPT) 89H, Alkaline Phosphatase 213H, Total Protein 5.9L, Albumin 3.0L, Globulin 2.9, Albumin/Globulin Ratio 1.0, Hepatitis A IgM Antibody [Pending], Hepatitis B Surface Antigen [Pending], Hepatitis B Core IgM Antibody [Pending], Hepatitis C Antibody [Pending] Current Medications Medications (Trade) Dose Ordered Sig/Taiwo Route PRN Reason Start Time Stop Time Status Last Admin Dose Admin Acetaminophen (Tylenol) 650 mg Q4H PRN ORAL fever 08/10/16 07:00 09/09/16 06:59 08/13/16 20:31 Acetaminophen (Tylenol) 650 mg Q4H PRN ORAL Mild Pain (Pain Scale 1-3) 08/12/16 17:15 09/11/16 17:14 Acetaminophen/ Hydrocodone Bitart ([place] 7.5/325) 1 ea Q4H PRN ORAL Moderate Pain (Pain Scale 4-6) 08/12/16 17:15 08/19/16 17:14 08/16/16 23:55 Al Hydroxide/Mg Hydroxide (Mylanta II) 30 ml Q6H PRN ORAL dyspepsia 08/10/16 07:00 09/09/16 06:59 Albuterol Sulfate (Proventil) 2.5 mg Q4H PRN HHN Shortness of Breath, wheezing 08/17/16 00:00 08/22/16 00:00 Bisacodyl (Dulcolax) 10 mg Q12H PRN RECTAL Constipation FIRST LINE AGENT 08/12/16 17:15 09/11/16 17:14 08/16/16 15:51 Celecoxib (CeleBREX) 200 mg DAILY ORAL 08/13/16 09:00 09/12/16 08:59 08/16/16 09:52 Dextrose (Dextrose 50%) STAT PRN IV Hypoglycemia 08/10/16 07:00 09/09/16 06:59 Dextrose/Sodium Chloride (D5ns) 1,000 ml @ 50 mls/hr Q20H IV 08/14/16 12:00 09/13/16 11:59 08/17/16 00:00 Diphenhydramine HCl (Benadryl) 50 mg Q6H PRN ORAL Itching 08/17/16 02:00 09/16/16 01:59 08/17/16 09:40 Docusate Sodium (Colace) 100 mg THREE TIMES A DAY ORAL 08/12/16 21:00 09/11/16 20:59 08/16/16 18:10 Enoxaparin Sodium (Lovenox) 30 mg DAILY SUBQ 08/13/16 09:00 08/23/16 08:59 08/17/16 09:28 Ferrous Sulfate (Feosol) 325 mg THREE TIMES A DAY ORAL 08/12/16 21:00 09/11/16 20:59 08/16/16 18:10 Fluticasone Propionate (Flonase) 2 spray DAILY NASAL 08/10/16 09:00 09/09/16 08:59 08/17/16 09:28 Hydromorphone HCl 1 mg 1 mg Q4H PRN SUBQ Severe Pain (Pain Scale 7-10) 08/12/16 20:30 08/19/16 20:29 08/17/16 09:27 Lorazepam (Ativan 2mg/ml 1ml) 0.4 mg Q4H PRN IM Agitation 08/10/16 12:15 08/17/16 12:14 08/16/16 19:08 Metoprolol Succinate (Toprol XL) 25 mg DAILY ORAL 08/15/16 09:00 09/14/16 08:59 08/16/16 09:52 Ondansetron HCl (Zofran) 4 mg Q6H PRN IVP Nausea & Vomiting 08/10/16 07:00 09/09/16 06:59 Oxycodone HCl (Roxicodone) 10 mg EVERY 8 HOURS ORAL 08/15/16 18:47 08/17/16 13:59 08/17/16 07:09 Polyethylene Glycol (Miralax) 17 gm HSPRN PRN ORAL Constipation 08/10/16 07:00 09/09/16 06:59 08/16/16 09:52 Trimethoprim/ Sulfamethoxazole (Bactrim Single Strength) 1 ea Q12HR ORAL 08/16/16 11:00 08/23/16 10:59 08/16/16 22:04 Zolpidem Tartrate (Ambien) 5 mg HSPRN PRN ORAL Insomnia 08/10/16 07:00 09/09/16 06:59 Janis Gupta NP ([facility]) Aug 17, 2016 09:56
[2016-08-17] MEDS: LORazepam Inj 2mg/ml 1ml IM PRN (10:42)
--- NOTE | 2016-08-17 14:53 | General Progress Note ---
Assessment/Plan Problem List: (1) Laceration of forearm, left ICD Codes: S51.812A - Laceration without foreign body of left forearm, initial encounter SNOMED: 698362692, 500655600 Qualifiers: Qualified Codes: S51.812A - Laceration without foreign body of left forearm , initial encounter (2) Fall ICD Codes: W19.XXXA - Unspecified fall, initial encounter SNOMED: 7720842, 684601466 Qualifiers: Qualified Codes: W19.XXXA - Unspecified fall, initial encounter (3) Dementia ICD Codes: F03.90 - Unspecified dementia without behavioral disturbance SNOMED: 08454345 (4) Severe protein-calorie malnutrition ICD Codes: E43 - Unspecified severe protein-calorie malnutrition SNOMED: 751806171 (5) Closed intertrochanteric fracture of left hip ICD Codes: S72.142A - Displaced intertrochanteric fracture of left femur, initial encounter for closed fracture SNOMED: 63365638 Qualifiers: Qualified Codes: S72.142A - Displaced intertrochanteric fracture of left femur, initial encounter for closed fracture (6) Azotemia ICD Codes: R79.89 - Other specified abnormal findings of blood chemistry SNOMED: 940191187 Status: stable, progressing, tolerating diet Assessment/Plan ot pt diet abx dc plan snf Subjective Allergies: Coded Allergies: DIAZEPAM (Verified Allergy, Unknown, 08/10/16) ERYTHROMYCIN BASE (Verified Allergy, Unknown, 08/10/16) LATEX (Verified Allergy, Unknown, 08/10/16) MEPERIDINE (Verified Allergy, Unknown, 08/10/16) MOXIFLOXACIN (Verified Allergy, Unknown, 08/10/16) PENICILLINS (Verified Allergy, Unknown, 08/10/16) THIOPENTAL (Verified Allergy, Unknown, 08/10/16) Uncoded Allergies: iv dye (Allergy, Unknown, 08/10/16) All Systems: reviewed and negative except above Subjective sleepy calm Objective Last 24 Hour Vital Signs Date Time Temp Pulse Resp B/P Pulse Ox O2 Delivery O2 Flow Rate FiO2 08/17/16 08:00 98.9 103 16 134/85 100 Room Air 08/17/16 06:36 73 18 Nasal Cannula 2.0 08/17/16 04:00 97.9 82 18 135/59 95 Room Air 08/17/16 00:00 97.5 96 19 113/54 95 Room Air 08/16/16 20:00 99.0 87 16 127/72 95 Room Air 08/16/16 16:00 97.2 78 19 125/67 91 Nasal Cannula 2.0 Intake and Output 08/16/16 08/17/16 19:00 07:00 Intake Total 470 ml 590 ml Balance 470 ml 590 ml Intake Oral 120 ml 240 ml IV Total 350 ml 350 ml # Voids 1 1 Laboratory Tests 08/17/16 07:58: White Blood Count 9.2, Red Blood Count 4.09L, Hemoglobin 12.0, Hematocrit 37.8, Mean Corpuscular Volume 92, Mean Corpuscular Hemoglobin 29.3, Mean Corpuscular Hemoglobin Concent 31.7L, Red Cell Distribution Width 14.5, Platelet Count 304, Mean Platelet Volume 6.0L, Neutrophils (%) (Auto) 67.3, Lymphocytes (%) (Auto) 19.2L, Monocytes (%) (Auto) 9.7, Eosinophils (%) (Auto) 2.9, Basophils (%) (Auto ) 1.0, Sodium Level 140, Potassium Level 4.6, Chloride Level 100, Carbon Dioxide Level 28, Anion Gap 12, Blood Urea Nitrogen 17, Creatinine 0.4L, Estimat Glomerular Filtration Rate , Glucose Level 167H, Calcium Level 8.3L, Total Bilirubin 1.1, Direct Bilirubin 0.4H, Aspartate Amino Transf (AST/SGOT) 86H, Alanine Aminotransferase (ALT/SGPT) 89H, Alkaline Phosphatase 213H, Total Protein 5.9L, Albumin 3.0L, Globulin 2.9, Albumin/Globulin Ratio 1.0, Hepatitis A IgM Antibody [Pending], Hepatitis B Surface Antigen [Pending], Hepatitis B Core IgM Antibody [Pending], Hepatitis C Antibody [Pending] Height (Feet): 5 Height (Inches): 0.00 Weight (Pounds): 91 General Appearance: lethargic EENT: normal ENT inspection Neck: normal alignment Cardiovascular: normal peripheral pulses, normal rate, regular rhythm Respiratory/Chest: chest wall non-tender, lungs clear, normal breath sounds Abdomen: normal bowel sounds, non tender, soft Extremities: normal inspection Edema: no edema noted Arm (L), no edema noted Arm (R), no edema noted Leg (L), no edema noted Leg (R), no edema noted Pedal (L), no edema noted Pedal (R), no edema noted Generalized Neurologic: responsive, motor weakness Skin: normal pigmentation, warm/dry ZARA MAS Aug 17, 2016 14:53
[2016-08-17 16:00] VITALS: BP 134/78
[2016-08-17] MEDS: D5NS 1,000 ML IV SCH ×2 (19:54)
[2016-08-17 20:00] VITALS: BP 143/83
[2016-08-17] MEDS: Norco 7.5mg/325mg tab ORAL PRN (20:57)
--- NOTE | 2016-08-17 22:04 | Infectious Diseases Prog Note ---
Assessment/Plan Problems: (1) UTI (urinary tract infection) Assessment & Plan: on bactrim , developed itching , will switch to nitrofurantoin , and monitor symptoms, await urine culture (2) Closed intertrochanteric fracture of left hip Assessment & Plan: S/P ORIF, ortho is following, continue PT/OT (3) Laceration of forearm, left Assessment & Plan: healing well, continue local wound care (4) Dementia Assessment & Plan: continue supportive care Subjective ROS Limited/Unobtainable: Yes Allergies: Coded Allergies: DIAZEPAM (Verified Allergy, Unknown, 08/10/16) ERYTHROMYCIN BASE (Verified Allergy, Unknown, 08/10/16) LATEX (Verified Allergy, Unknown, 08/10/16) MEPERIDINE (Verified Allergy, Unknown, 08/10/16) MOXIFLOXACIN (Verified Allergy, Unknown, 08/10/16) PENICILLINS (Verified Allergy, Unknown, 08/10/16) THIOPENTAL (Verified Allergy, Unknown, 08/10/16) Uncoded Allergies: iv dye (Allergy, Unknown, 08/10/16) Subjective she is up in bed, comfortable , and quiet , not in distress , had itching Objective Vital Signs Last 24 Hour Vital Signs Date Time Temp Pulse Resp B/P Pulse Ox O2 Delivery O2 Flow Rate FiO2 08/17/16 20:00 98.1 94 20 143/83 Room Air 08/17/16 19:30 80 20 Room Air 21 08/17/16 16:00 97.9 73 19 134/78 92 Room Air 08/17/16 08:00 98.9 103 16 134/85 100 Room Air 08/17/16 06:36 73 18 Nasal Cannula 2.0 08/17/16 04:00 97.9 82 18 135/59 95 Room Air 08/17/16 00:00 97.5 96 19 113/54 95 Room Air Height (Feet): 5 Height (Inches): 0.00 Weight (Pounds): 91 General Appearance: WD/WN, no acute distress HEENT: normocephalic, atraumatic, anicteric, mucous membranes moist Respiratory/Chest: chest wall non-tender, lungs clear, normal breath sounds, no respiratory distress, no accessory muscle use Cardiovascular: normal peripheral pulses, normal rate, regular rhythm, no gallop/murmur Abdomen: normal bowel sounds, soft, non tender, no organomegaly, non distended , no mass, no scars Extremities: no cyanosis, no clubbing Skin: no rash Microbiology Date/Time Source Procedure Growth Status 08/16/16 10:10 Indwelling Cath Urine Culture - Preliminary Gram Negative Jeison Resulted Laboratory Tests Test 08/17/16 07:58 White Blood Count 9.2 K/UL (4.8-10.8) Red Blood Count 4.09 M/UL (4.20-5.40) L Hemoglobin 12.0 G/DL (12.0-16.0) Hematocrit 37.8 % (37.0-47.0) Mean Corpuscular Volume 92 FL (80-99) Mean Corpuscular Hemoglobin 29.3 PG (27.0-31.0) Mean Corpuscular Hemoglobin Concent 31.7 G/DL (32.0-36.0) L Red Cell Distribution Width 14.5 % (11.6-14.8) Platelet Count 304 K/UL (150-450) Mean Platelet Volume 6.0 FL (6.5-10.1) L Neutrophils (%) (Auto) 67.3 % (45.0-75.0) Lymphocytes (%) (Auto) 19.2 % (20.0-45.0) L Monocytes (%) (Auto) 9.7 % (1.0-10.0) Eosinophils (%) (Auto) 2.9 % (0.0-3.0) Basophils (%) (Auto) 1.0 % (0.0-2.0) Sodium Level 140 mEQ/L (135-145) Potassium Level 4.6 mEQ/L (3.4-4.9) Chloride Level 100 mEQ/L (98-107) Carbon Dioxide Level 28 mEQ/L (20-30) Anion Gap 12 (5-15) Blood Urea Nitrogen 17 mg/dL (7-23) Creatinine 0.4 mg/dL (0.5-0.9) L Estimat Glomerular Filtration Rate mL/min (>60) Glucose Level 167 mg/dL (74-106) H Calcium Level 8.3 mg/dL (8.6-10.2) L Total Bilirubin 1.1 mg/dL (0.0-1.2) Direct Bilirubin 0.4 mg/dL (0.1-0.3) H Aspartate Amino Transf (AST/SGOT) 86 U/L (5-40) H Alanine Aminotransferase (ALT/SGPT) 89 U/L (3-33) H Alkaline Phosphatase 213 U/L (35-104) H Total Protein 5.9 g/dL (6.6-8.7) L Albumin 3.0 g/dL (3.5-5.2) L Globulin 2.9 g/dL Albumin/Globulin Ratio 1.0 (1.0-2.7) Hepatitis A IgM Antibody Pending Hepatitis B Surface Antigen Pending Hepatitis B Core IgM Antibody Pending Hepatitis C Antibody Pending Current Medications Medications (Trade) Dose Ordered Sig/Taiwo Route PRN Reason Start Time Stop Time Status Last Admin Dose Admin Acetaminophen (Tylenol) 650 mg Q4H PRN ORAL fever 08/10/16 07:00 09/09/16 06:59 08/13/16 20:31 Acetaminophen (Tylenol) 650 mg Q4H PRN ORAL Mild Pain (Pain Scale 1-3) 08/12/16 17:15 09/11/16 17:14 Acetaminophen/ Hydrocodone Bitart ([place] 7.5/325) 1 ea Q4H PRN ORAL Moderate Pain (Pain Scale 4-6) 08/12/16 17:15 08/19/16 17:14 08/17/16 20:57 Al Hydroxide/Mg Hydroxide (Mylanta II) 30 ml Q6H PRN ORAL dyspepsia 08/10/16 07:00 09/09/16 06:59 Albuterol Sulfate (Proventil) 2.5 mg Q4H PRN HHN Shortness of Breath, wheezing 08/17/16 00:00 08/22/16 00:00 Bisacodyl (Dulcolax) 10 mg Q12H PRN RECTAL Constipation FIRST LINE AGENT 08/12/16 17:15 09/11/16 17:14 08/16/16 15:51 Celecoxib (CeleBREX) 200 mg DAILY ORAL 08/13/16 09:00 09/12/16 08:59 08/16/16 09:52 Dextrose (Dextrose 50%) STAT PRN IV Hypoglycemia 08/10/16 07:00 09/09/16 06:59 Dextrose/Sodium Chloride (D5ns) 1,000 ml @ 50 mls/hr Q20H IV 08/14/16 12:00 09/13/16 11:59 08/17/16 00:00 Diphenhydramine HCl (Benadryl) 50 mg Q6H PRN ORAL Itching 08/17/16 02:00 09/16/16 01:59 08/17/16 09:40 Docusate Sodium (Colace) 100 mg THREE TIMES A DAY ORAL 08/12/16 21:00 09/11/16 20:59 08/16/16 18:10 Enoxaparin Sodium (Lovenox) 30 mg DAILY SUBQ 08/13/16 09:00 08/23/16 08:59 08/17/16 09:28 Ferrous Sulfate (Feosol) 325 mg THREE TIMES A DAY ORAL 08/12/16 21:00 09/11/16 20:59 08/16/16 18:10 Fluticasone Propionate (Flonase) 2 spray DAILY NASAL 08/10/16 09:00 09/09/16 08:59 08/17/16 09:28 Hydromorphone HCl 1 mg 1 mg Q4H PRN SUBQ Severe Pain (Pain Scale 7-10) 08/12/16 20:30 08/19/16 20:29 08/17/16 17:48 Metoprolol Succinate (Toprol XL) 25 mg DAILY ORAL 08/15/16 09:00 09/14/16 08:59 08/16/16 09:52 Nitrofurantoin (Macrobid) 100 mg EVERY 12 HOURS ORAL 08/18/16 09:00 09/17/16 08:59 UNV Ondansetron HCl (Zofran) 4 mg Q6H PRN IVP Nausea & Vomiting 08/10/16 07:00 09/09/16 06:59 Polyethylene Glycol (Miralax) 17 gm HSPRN PRN ORAL Constipation 08/10/16 07:00 09/09/16 06:59 08/16/16 09:52 Zolpidem Tartrate (Ambien) 5 mg HSPRN PRN ORAL Insomnia 08/10/16 07:00 09/09/16 06:59 Yayo Salas M.D. Aug 17, 2016 22:04
--- NOTE | 2016-08-17 23:45 | Cardiology Progress Note ---
Assessment/Plan Assessment/Plan 1. Hypotensive event, resolved, now BP normal and at times high. 2. S/P left Hip ORIF, POD # 4, no perioperative cardiac events. 3. Accelerated HTN, increase metoprolol. Subjective Subjective No cardiac events. Denies chest pain or SOB. Objective Last 24 Hour Vital Signs Date Time Temp Pulse Resp B/P Pulse Ox O2 Delivery O2 Flow Rate FiO2 08/17/16 20:00 98.1 94 20 143/83 Room Air 08/17/16 19:30 80 20 Room Air 21 08/17/16 16:00 97.9 73 19 134/78 92 Room Air 08/17/16 08:00 98.9 103 16 134/85 100 Room Air 08/17/16 06:36 73 18 Nasal Cannula 2.0 08/17/16 04:00 97.9 82 18 135/59 95 Room Air 08/17/16 00:00 97.5 96 19 113/54 95 Room Air Intake and Output 08/16/16 08/17/16 19:00 07:00 Intake Total 470 ml 590 ml Balance 470 ml 590 ml Intake Oral 120 ml 240 ml IV Total 350 ml 350 ml # Voids 1 1 2D Echo: LVEF 60-65%, Mild LVH, Mild AR Laboratory Tests Test 08/17/16 07:58 White Blood Count 9.2 K/UL (4.8-10.8) Red Blood Count 4.09 M/UL (4.20-5.40) L Hemoglobin 12.0 G/DL (12.0-16.0) Hematocrit 37.8 % (37.0-47.0) Mean Corpuscular Volume 92 FL (80-99) Mean Corpuscular Hemoglobin 29.3 PG (27.0-31.0) Mean Corpuscular Hemoglobin Concent 31.7 G/DL (32.0-36.0) L Red Cell Distribution Width 14.5 % (11.6-14.8) Platelet Count 304 K/UL (150-450) Mean Platelet Volume 6.0 FL (6.5-10.1) L Neutrophils (%) (Auto) 67.3 % (45.0-75.0) Lymphocytes (%) (Auto) 19.2 % (20.0-45.0) L Monocytes (%) (Auto) 9.7 % (1.0-10.0) Eosinophils (%) (Auto) 2.9 % (0.0-3.0) Basophils (%) (Auto) 1.0 % (0.0-2.0) Sodium Level 140 mEQ/L (135-145) Potassium Level 4.6 mEQ/L (3.4-4.9) Chloride Level 100 mEQ/L (98-107) Carbon Dioxide Level 28 mEQ/L (20-30) Anion Gap 12 (5-15) Blood Urea Nitrogen 17 mg/dL (7-23) Creatinine 0.4 mg/dL (0.5-0.9) L Estimat Glomerular Filtration Rate mL/min (>60) Glucose Level 167 mg/dL (74-106) H Calcium Level 8.3 mg/dL (8.6-10.2) L Total Bilirubin 1.1 mg/dL (0.0-1.2) Direct Bilirubin 0.4 mg/dL (0.1-0.3) H Aspartate Amino Transf (AST/SGOT) 86 U/L (5-40) H Alanine Aminotransferase (ALT/SGPT) 89 U/L (3-33) H Alkaline Phosphatase 213 U/L (35-104) H Total Protein 5.9 g/dL (6.6-8.7) L Albumin 3.0 g/dL (3.5-5.2) L Globulin 2.9 g/dL Albumin/Globulin Ratio 1.0 (1.0-2.7) Hepatitis A IgM Antibody Pending Hepatitis B Surface Antigen Pending Hepatitis B Core IgM Antibody Pending Hepatitis C Antibody Pending Microbiology Date/Time Source Procedure Growth Status 08/16/16 10:10 Indwelling Cath Urine Culture - Preliminary Gram Negative Jeison Resulted Objective HEENT: Atraumatic and normocephalic. Anicteric. Pupils are equal, round, and accommodation. Dry mucosal membranes. Pupils are equal, round, and reactive to light and accommodation. Extraocular muscles intact. NECK: JVP is less than 5 cm. No carotid bruits. Carotid upstrokes 2+ bilaterally. CARDIOVASCULAR: Normal S1, S2. Irregularly irregular rhythm. A 2/6 mid systolic murmur in the left sternal border. PMI is at fourth intercostal space in the midclavicular line. LUNGS: Clear to auscultation bilaterally. ABDOMEN: Soft, nontender, and nondistended. No hepatosplenomegaly. Positive bowel sounds. EXTREMITIES: No edema, clubbing or cyanosis right leg. VINH GRIMALDO Aug 17, 2016 23:45
[2016-08-18] VITALS: BP 152/71
[2016-08-18] MEDS: HYDROmorphone 1mg/ml Carpuject SUBQ PRN ×4 (01:23→22:43)
[2016-08-18 04:00] VITALS: BP 151/72
[2016-08-18] MEDS: LORazepam Inj 2mg/ml 1ml IM PRN ×2 (05:02→16:54)
[2016-08-18 06:13] LABS: BASOPHILS % (AUTO) 1.2 % (0.0-2.0); EOSINOPHILS % (AUTO) 1.6 % (0.0-3.0); LYMPHOCYTES % (AUTO) 12.1 % (20.0-45.0); MEAN CORPUSCULAR HGB CONC 32.6 G/DL (32.0-36.0); MEAN CORPUSCULAR VOLUME 92 FL (80-99); MEAN PLATELET VOLUME 5.8 FL (6.5-10.1); MONOCYTES % (AUTO) 10.5 % (1.0-10.0); NEUTROPHILS % (AUTO) 74.7 % (45.0-75.0); PLATELET COUNT 316 K/UL (150-450); RED BLOOD COUNT 3.94 M/UL (4.20-5.40); RED CELL DISTRIBUTION WIDTH 14.2 % (11.6-14.8); WHITE BLOOD COUNT 9.4 K/UL (4.8-10.8)
[2016-08-18 06:34] LABS: ANION GAP 17 (5-15); CALCIUM 8.5 mg/dL (8.6-10.2); CARBON DIOXIDE 28 mEQ/L (20-30); CHLORIDE 94 mEQ/L (98-107); CREATININE 0.5 mg/dL (0.5-0.9); HEMOLYSIS 3; POTASSIUM 4.2 mEQ/L (3.4-4.9); SODIUM 139 mEQ/L (135-145)
[2016-08-18 07:53] VITALS: BP 126/76
[2016-08-18] MEDS: Docusate 100mg tablet ORAL SCH ×3 (08:03→18:00)
[2016-08-18] MEDS: celeBREX 200mg Cap **SURGERY PATIENTS ONLY ORAL SCH ×2 (08:04→08:32)
[2016-08-18] MEDS: Enoxaparin 30mg Inj SUBQ SCH (08:06)
[2016-08-18] MEDS: Flonase Nasal Inhaler 16gm NASAL SCH ×2 (08:07→08:31)
--- NOTE | 2016-08-18 09:36 | General Progress Note ---
Assessment/Plan Problem List: (1) Laceration of forearm, left ICD Codes: S51.812A - Laceration without foreign body of left forearm, initial encounter SNOMED: 706483544, 585955318 Qualifiers: Qualified Codes: S51.812A - Laceration without foreign body of left forearm , initial encounter (2) Fall ICD Codes: W19.XXXA - Unspecified fall, initial encounter SNOMED: 4656246, 770147376 Qualifiers: Qualified Codes: W19.XXXA - Unspecified fall, initial encounter (3) Dementia ICD Codes: F03.90 - Unspecified dementia without behavioral disturbance SNOMED: 43840812 (4) Severe protein-calorie malnutrition ICD Codes: E43 - Unspecified severe protein-calorie malnutrition SNOMED: 535929696 (5) Closed intertrochanteric fracture of left hip ICD Codes: S72.142A - Displaced intertrochanteric fracture of left femur, initial encounter for closed fracture SNOMED: 65902382 Qualifiers: Qualified Codes: S72.142A - Displaced intertrochanteric fracture of left femur, initial encounter for closed fracture (6) Azotemia ICD Codes: R79.89 - Other specified abnormal findings of blood chemistry SNOMED: 538124397 Status: stable, progressing, tolerating diet Assessment/Plan ot pt diet abx dc plan snf Subjective Constitutional: Reports: weakness Allergies: Coded Allergies: DIAZEPAM (Verified Allergy, Unknown, 08/10/16) ERYTHROMYCIN BASE (Verified Allergy, Unknown, 08/10/16) LATEX (Verified Allergy, Unknown, 08/10/16) MEPERIDINE (Verified Allergy, Unknown, 08/10/16) MOXIFLOXACIN (Verified Allergy, Unknown, 08/10/16) PENICILLINS (Verified Allergy, Unknown, 08/10/16) THIOPENTAL (Verified Allergy, Unknown, 08/10/16) Uncoded Allergies: iv dye (Allergy, Unknown, 08/10/16) All Systems: reviewed and negative except above Subjective sleepy calm Objective Last 24 Hour Vital Signs Date Time Temp Pulse Resp B/P Pulse Ox O2 Delivery O2 Flow Rate FiO2 08/18/16 08:05 77 126/76 08/18/16 07:53 97.9 77 18 126/76 94 Room Air 08/18/16 04:00 97.2 106 19 151/72 94 Room Air 08/18/16 00:00 97.0 91 20 152/71 96 Room Air 08/17/16 20:00 98.1 94 20 143/83 Room Air 08/17/16 19:30 80 20 Room Air 21 08/17/16 16:00 97.9 73 19 134/78 92 Room Air Intake and Output 08/17/16 08/18/16 19:00 07:00 Intake Total 360 ml Balance 360 ml Intake Oral 360 ml # Voids 1 2 # Bowel Movements 1 3 Laboratory Tests 08/18/16 05:35: White Blood Count 9.4, Red Blood Count 3.94L, Hemoglobin 11.8L, Hematocrit 36.3L , Mean Corpuscular Volume 92, Mean Corpuscular Hemoglobin 30.0, Mean Corpuscular Hemoglobin Concent 32.6, Red Cell Distribution Width 14.2, Platelet Count 316, Mean Platelet Volume 5.8L, Neutrophils (%) (Auto) 74.7, Lymphocytes ( %) (Auto) 12.1L, Monocytes (%) (Auto) 10.5H, Eosinophils (%) (Auto) 1.6, Basophils (%) (Auto) 1.2, Sodium Level 139, Potassium Level 4.2, Chloride Level 94L, Carbon Dioxide Level 28, Anion Gap 17H, Blood Urea Nitrogen 14, Creatinine 0.5, Estimat Glomerular Filtration Rate , Glucose Level 70L, Calcium Level 8.5L Height (Feet): 5 Height (Inches): 0.00 Weight (Pounds): 91 General Appearance: lethargic EENT: normal ENT inspection Neck: normal alignment Cardiovascular: normal peripheral pulses, normal rate, regular rhythm Respiratory/Chest: chest wall non-tender, lungs clear, normal breath sounds Abdomen: normal bowel sounds, non tender, soft Extremities: normal inspection Edema: no edema noted Arm (L), no edema noted Arm (R), no edema noted Leg (L), no edema noted Leg (R), no edema noted Pedal (L), no edema noted Pedal (R), no edema noted Generalized Neurologic: responsive, motor weakness Skin: normal pigmentation, warm/dry ZARA MAS Aug 18, 2016 09:36
--- NOTE | 2016-08-18 10:25 | Pulmonology Progress Note ---
Assessment/Plan Assessment/Plan ASSESSMENT s/p fall Lt forearm laceration s/p repair of laceration in ED comminuted left proximal femoral intratrochanteric fracture. s/p ORIF left hip fracture UTI elevated transaminase dementia severe protein calorie malnutrition anemia s/p blood transfusion HTN urgency prerenal azotemia hyperkalemia -resolved left sacral st 2, Rt sacral DTI - POA PLAN OF CARE [facility] floor ECHO with preserved EF 60-65% cleared for surgery s/p surgery surgery follows fall precautions PT/OT UA with evidence of UTI continue Bactrim urine cx + E coli ID follows CXR mild atelectasis, no other significant findings elevated transaminase, trending down hepatitis panel and abdominal US-pending nephro follows prerenal azotemia likely due to dehydration, BUN trending down IVF changed to without K, K stable avoid nephrotoxic , monitor renal parameters, lytes, stable BP management with BB, cardio follows wound care as per wound care nurse recommendation pain management bowel regimen monitor HH, at baseline patient declined to go home, desires to go to [facility]- Rehab, placement in process fup with surgery in 2 weeks case discussed and evaluated by supervising physician Subjective Allergies: Coded Allergies: DIAZEPAM (Verified Allergy, Unknown, 08/10/16) ERYTHROMYCIN BASE (Verified Allergy, Unknown, 08/10/16) LATEX (Verified Allergy, Unknown, 08/10/16) MEPERIDINE (Verified Allergy, Unknown, 08/10/16) MOXIFLOXACIN (Verified Allergy, Unknown, 08/10/16) PENICILLINS (Verified Allergy, Unknown, 08/10/16) THIOPENTAL (Verified Allergy, Unknown, 08/10/16) Uncoded Allergies: iv dye (Allergy, Unknown, 08/10/16) Subjective afebrile, no leukocytosis awaiting for placement Objective Last 24 Hour Vital Signs Date Time Temp Pulse Resp B/P Pulse Ox O2 Delivery O2 Flow Rate FiO2 08/18/16 08:18 75 18 Room Air 21 08/18/16 08:05 77 126/76 08/18/16 07:53 97.9 77 18 126/76 94 Room Air 08/18/16 04:00 97.2 106 19 151/72 94 Room Air 08/18/16 00:00 97.0 91 20 152/71 96 Room Air 08/17/16 20:00 98.1 94 20 143/83 Room Air 08/17/16 19:30 80 20 Room Air 21 08/17/16 16:00 97.9 73 19 134/78 92 Room Air Intake and Output 08/17/16 08/18/16 19:00 07:00 Intake Total 360 ml Balance 360 ml Intake Oral 360 ml # Voids 1 2 # Bowel Movements 1 3 Objective General Appearance: no acute distress, cachetic HEENT: normocephalic, atraumatic, anicteric Respiratory/Chest: lungs clear, no respiratory distress, no accessory muscle use Cardiovascular: normal peripheral pulses, normal rate, no JVD Abdomen: normal bowel sounds, soft, non tender, non distended Genitourinary: normal external genitalia Extremities: Left forearm with edema, erythema, TTP, full ROM with some pain Skin: left hip with dressing C/D/I Neurologic/Psychiatric: abnormal gait, alert, responsive Microbiology Date/Time Source Procedure Growth Status 08/16/16 10:10 Indwelling Cath Urine Culture - Final Escherichia Coli Complete Laboratory Tests 08/18/16 05:35: White Blood Count 9.4, Red Blood Count 3.94L, Hemoglobin 11.8L, Hematocrit 36.3L , Mean Corpuscular Volume 92, Mean Corpuscular Hemoglobin 30.0, Mean Corpuscular Hemoglobin Concent 32.6, Red Cell Distribution Width 14.2, Platelet Count 316, Mean Platelet Volume 5.8L, Neutrophils (%) (Auto) 74.7, Lymphocytes ( %) (Auto) 12.1L, Monocytes (%) (Auto) 10.5H, Eosinophils (%) (Auto) 1.6, Basophils (%) (Auto) 1.2, Sodium Level 139, Potassium Level 4.2, Chloride Level 94L, Carbon Dioxide Level 28, Anion Gap 17H, Blood Urea Nitrogen 14, Creatinine 0.5, Estimat Glomerular Filtration Rate , Glucose Level 70L, Calcium Level 8.5L Current Medications Medications (Trade) Dose Ordered Sig/Taiwo Route PRN Reason Start Time Stop Time Status Last Admin Dose Admin Acetaminophen (Tylenol) 650 mg Q4H PRN ORAL fever 08/10/16 07:00 09/09/16 06:59 08/13/16 20:31 Acetaminophen (Tylenol) 650 mg Q4H PRN ORAL Mild Pain (Pain Scale 1-3) 08/12/16 17:15 09/11/16 17:14 Acetaminophen/ Hydrocodone Bitart ([place] 7.5/325) 1 ea Q4H PRN ORAL Moderate Pain (Pain Scale 4-6) 08/12/16 17:15 08/19/16 17:14 08/17/16 20:57 Al Hydroxide/Mg Hydroxide (Mylanta II) 30 ml Q6H PRN ORAL dyspepsia 08/10/16 07:00 09/09/16 06:59 Albuterol Sulfate (Proventil) 2.5 mg Q4H PRN HHN Shortness of Breath, wheezing 08/17/16 00:00 08/22/16 00:00 Bisacodyl (Dulcolax) 10 mg Q12H PRN RECTAL Constipation FIRST LINE AGENT 08/12/16 17:15 09/11/16 17:14 08/16/16 15:51 Celecoxib (CeleBREX) 200 mg DAILY ORAL 08/13/16 09:00 09/12/16 08:59 08/16/16 09:52 Dextrose (Dextrose 50%) STAT PRN IV Hypoglycemia 08/10/16 07:00 09/09/16 06:59 Dextrose/Sodium Chloride (D5ns) 1,000 ml @ 50 mls/hr Q20H IV 08/14/16 12:00 09/13/16 11:59 08/17/16 00:00 Diphenhydramine HCl (Benadryl) 50 mg Q6H PRN ORAL Itching 08/17/16 02:00 09/16/16 01:59 08/18/16 08:03 Docusate Sodium (Colace) 100 mg THREE TIMES A DAY ORAL 08/12/16 21:00 09/11/16 20:59 08/18/16 08:03 Enoxaparin Sodium (Lovenox) 30 mg DAILY SUBQ 08/13/16 09:00 08/23/16 08:59 08/18/16 08:06 Ferrous Sulfate (Feosol) 325 mg THREE TIMES A DAY ORAL 08/12/16 21:00 09/11/16 20:59 08/18/16 08:03 Fluticasone Propionate (Flonase) 2 spray DAILY NASAL 08/10/16 09:00 09/09/16 08:59 08/17/16 09:28 Hydromorphone HCl 1 mg 1 mg Q4H PRN SUBQ Severe Pain (Pain Scale 7-10) 08/12/16 20:30 08/19/16 20:29 08/18/16 08:08 Lorazepam (Ativan 2mg/ml 1ml) 0.4 mg Q4H PRN IM AGITATION 08/18/16 01:15 08/25/16 01:14 08/18/16 05:02 Metoprolol Succinate (Toprol XL) 50 mg DAILY ORAL 08/18/16 09:00 09/17/16 08:59 08/18/16 08:05 Nitrofurantoin (Macrobid) 100 mg EVERY 12 HOURS ORAL 08/18/16 09:00 09/17/16 08:59 08/18/16 08:05 Ondansetron HCl (Zofran) 4 mg Q6H PRN IVP Nausea & Vomiting 08/10/16 07:00 09/09/16 06:59 Polyethylene Glycol (Miralax) 17 gm HSPRN PRN ORAL Constipation 08/10/16 07:00 09/09/16 06:59 08/16/16 09:52 Zolpidem Tartrate (Ambien) 5 mg HSPRN PRN ORAL Insomnia 08/10/16 07:00 09/09/16 06:59 Janis Gupta NP ([place]) Aug 18, 2016 10:25
[2016-08-18 12:00] VITALS: BP 128/68
--- NOTE | 2016-08-18 12:16 | Diagnostic Imaging Report ---
ULTRASOUND OF THE ABDOMEN HISTORY: Elevated bilirubin, and LFTs. Abdominal pain. TECHNIQUE: Grayscale ultrasound imaging of the abdomen was performed. COMPARISON: No prior study is available for comparison. FINDINGS: Exam sensitivity is diminished due to patient's body habitus, bowel gas, and patient's inability to fully cooperate with the exam. The liver is normal in echotexture and contour. There is no intrahepatic biliary ductal dilatation. Routine color and pulsed Doppler images demonstrate normal hepatopetal flow in the main portal vein. The gallbladder is mildly distended without cholelithiasis, wall thickening, or pericholecystic fluid. The common bile duct measures 5 mm. The pancreas is obscured by gas. The spleen is normal in appearance and measures 7.6 cm. The kidneys appear grossly normal without evidence of hydronephrosis. The visualized portions of the aorta and inferior vena cava appear normal. IMPRESSION: Mildly distended gallbladder. No evidence of cholelithiasis. Otherwise, unremarkable abdominal ultrasound within the confines of a slightly suboptimal exam.
[2016-08-18 16:00] VITALS: BP 123/78
[2016-08-18] MEDS: D5NS 1,000 ML IV SCH (16:00)
[2016-08-18 20:00] VITALS: BP 143/71
--- NOTE | 2016-08-18 23:55 | Cardiology Progress Note ---
Assessment/Plan Assessment/Plan 1. Multifocal atrial rhythm, continue metoprolol. 2. S/P left Hip ORIF, POD # 5, no perioperative cardiac events. 3. Accelerated HTN, better controlled, continue metoprolol. Hypotensive event is resolved. Subjective Subjective Not on the tele bed. Denies chest pain or SOB. Objective Last 24 Hour Vital Signs Date Time Temp Pulse Resp B/P Pulse Ox O2 Delivery O2 Flow Rate FiO2 08/18/16 20:00 97.7 77 19 143/71 95 Room Air 08/18/16 19:54 72 18 Room Air 21 08/18/16 16:00 97.7 74 18 123/78 94 Room Air 08/18/16 12:00 98.0 18 128/68 98 Room Air 08/18/16 08:18 75 18 Room Air 21 08/18/16 08:05 77 126/76 08/18/16 07:53 97.9 77 18 126/76 94 Room Air 08/18/16 04:00 97.2 106 19 151/72 94 Room Air 08/18/16 00:00 97.0 91 20 152/71 96 Room Air Intake and Output 08/17/16 08/18/16 19:00 07:00 Intake Total 360 ml Balance 360 ml Intake Oral 360 ml # Voids 1 2 # Bowel Movements 1 3 2D Echo: LVEF 60-65%, Mild LVH, Mild AR Laboratory Tests Test 08/18/16 05:35 White Blood Count 9.4 K/UL (4.8-10.8) Red Blood Count 3.94 M/UL (4.20-5.40) L Hemoglobin 11.8 G/DL (12.0-16.0) L Hematocrit 36.3 % (37.0-47.0) L Mean Corpuscular Volume 92 FL (80-99) Mean Corpuscular Hemoglobin 30.0 PG (27.0-31.0) Mean Corpuscular Hemoglobin Concent 32.6 G/DL (32.0-36.0) Red Cell Distribution Width 14.2 % (11.6-14.8) Platelet Count 316 K/UL (150-450) Mean Platelet Volume 5.8 FL (6.5-10.1) L Neutrophils (%) (Auto) 74.7 % (45.0-75.0) Lymphocytes (%) (Auto) 12.1 % (20.0-45.0) L Monocytes (%) (Auto) 10.5 % (1.0-10.0) H Eosinophils (%) (Auto) 1.6 % (0.0-3.0) Basophils (%) (Auto) 1.2 % (0.0-2.0) Sodium Level 139 mEQ/L (135-145) Potassium Level 4.2 mEQ/L (3.4-4.9) Chloride Level 94 mEQ/L (98-107) L Carbon Dioxide Level 28 mEQ/L (20-30) Anion Gap 17 (5-15) H Blood Urea Nitrogen 14 mg/dL (7-23) Creatinine 0.5 mg/dL (0.5-0.9) Estimat Glomerular Filtration Rate mL/min (>60) Glucose Level 70 mg/dL (74-106) L Calcium Level 8.5 mg/dL (8.6-10.2) L Microbiology Date/Time Source Procedure Growth Status 08/16/16 10:10 Indwelling Cath Urine Culture - Final Escherichia Coli Complete Objective HEENT: Atraumatic and normocephalic. Anicteric. Pupils are equal, round, and accommodation. Dry mucosal membranes. Pupils are equal, round, and reactive to light and accommodation. Extraocular muscles intact. NECK: JVP is less than 5 cm. No carotid bruits. Carotid upstrokes 2+ bilaterally. CARDIOVASCULAR: Normal S1, S2. Irregularly irregular rhythm. A 2/6 mid systolic murmur in the left sternal border. PMI is at fourth intercostal space in the midclavicular line. LUNGS: Clear to auscultation bilaterally. ABDOMEN: Soft, nontender, and nondistended. No hepatosplenomegaly. Positive bowel sounds. EXTREMITIES: No edema, clubbing or cyanosis right leg. VINH GRIMALDO Aug 18, 2016 23:55
[2016-08-19] VITALS: BP 146/68
[2016-08-19] MEDS: Norco 7.5mg/325mg tab ORAL PRN ×3 (00:12→14:58)
[2016-08-19 04:00] VITALS: BP 146/82
[2016-08-19] MEDS: HYDROmorphone 1mg/ml Carpuject SUBQ PRN ×3 (05:08→18:01)
[2016-08-19 08:00] VITALS: BP 136/67
[2016-08-19] MEDS: Flonase Nasal Inhaler 16gm NASAL SCH (08:41)
[2016-08-19] MEDS: celeBREX 200mg Cap **SURGERY PATIENTS ONLY ORAL SCH (08:43)
[2016-08-19] MEDS: Docusate 100mg tablet ORAL SCH ×3 (08:43→18:00)
[2016-08-19] MEDS: Enoxaparin 30mg Inj SUBQ SCH (08:54)
[2016-08-19] MEDS: D5NS 1,000 ML IV SCH (11:15)
[2016-08-19 12:05] VITALS: BP 143/73
[2016-08-19] MEDS ORDERED: ACETAMINOPHEN325 M1 ORAL (13:00)
[2016-08-19] MEDS ORDERED: MYLANTA II30 ML ORAL (13:01)
[2016-08-19] MEDS ORDERED: ALBUTEROL2.5 MG/3 M INH (13:02)
[2016-08-19] MEDS ORDERED: BISAC-EVAC10 MG RC (13:02)
[2016-08-19] MEDS ORDERED: CELEBREX200 MG ORAL (13:02)
[2016-08-19] MEDS ORDERED: DEXTROSE 50%-WA50 M1 IV (13:03)
[2016-08-19] MEDS ORDERED: DOCUPRENE100 MG PO (13:04)
[2016-08-19] MEDS ORDERED: BENADRYL25 MG ORAL (13:04)
[2016-08-19] MEDS ORDERED: LOVENOX10 MG SUBQ (13:05)
[2016-08-19] MEDS ORDERED: FERROUS SULFAT325 MG ORAL (13:06)
[2016-08-19] MEDS ORDERED: NORCO1 E1 ORAL (13:06)
[2016-08-19] MEDS ORDERED: FLUTICASONE PRO16 G1 NASAL (13:06)
[2016-08-19] MEDS ORDERED: HYDROMORPHO1 MG/1 M1 SUBQ (13:08)
[2016-08-19] MEDS ORDERED: LORAZEPAM0.5 MG IM (13:09)
[2016-08-19] MEDS ORDERED: METOPROLOL TART50 M1 ORAL (13:10)
[2016-08-19] MEDS ORDERED: NITROFURANTOIN100 M2 ORAL (13:11)
[2016-08-19] MEDS ORDERED: ZOFRAN 4 MG4 MG/2 ML IV (13:11)
[2016-08-19] MEDS ORDERED: AMBIEN5 MG ORAL (13:12)
[2016-08-19] MEDS ORDERED: MIRALAX17 G2 ORAL (13:12)
--- NOTE | 2016-08-19 13:55 | General Progress Note ---
Assessment/Plan Problem List: (1) Laceration of forearm, left ICD Codes: S51.812A - Laceration without foreign body of left forearm, initial encounter SNOMED: 186540545, 489931162 Qualifiers: Qualified Codes: S51.812A - Laceration without foreign body of left forearm , initial encounter (2) Fall ICD Codes: W19.XXXA - Unspecified fall, initial encounter SNOMED: 7909847, 808059697 Qualifiers: Qualified Codes: W19.XXXA - Unspecified fall, initial encounter (3) Dementia ICD Codes: F03.90 - Unspecified dementia without behavioral disturbance SNOMED: 46541063 (4) Severe protein-calorie malnutrition ICD Codes: E43 - Unspecified severe protein-calorie malnutrition SNOMED: 489096515 (5) Closed intertrochanteric fracture of left hip ICD Codes: S72.142A - Displaced intertrochanteric fracture of left femur, initial encounter for closed fracture SNOMED: 27465638 Qualifiers: Qualified Codes: S72.142A - Displaced intertrochanteric fracture of left femur, initial encounter for closed fracture (6) Azotemia ICD Codes: R79.89 - Other specified abnormal findings of blood chemistry SNOMED: 929121649 Status: stable, progressing, tolerating diet Assessment/Plan ot pt diet abx dc to snf Subjective Constitutional: Reports: weakness Endocrine: Denies: unexplained weight loss Allergies: Coded Allergies: DIAZEPAM (Verified Allergy, Unknown, 08/10/16) ERYTHROMYCIN BASE (Verified Allergy, Unknown, 08/10/16) LATEX (Verified Allergy, Unknown, 08/10/16) MEPERIDINE (Verified Allergy, Unknown, 08/10/16) MOXIFLOXACIN (Verified Allergy, Unknown, 08/10/16) PENICILLINS (Verified Allergy, Unknown, 08/10/16) THIOPENTAL (Verified Allergy, Unknown, 08/10/16) Uncoded Allergies: iv dye (Allergy, Unknown, 08/10/16) All Systems: reviewed and negative except above Subjective sleepy calm Objective Last 24 Hour Vital Signs Date Time Temp Pulse Resp B/P Pulse Ox O2 Delivery O2 Flow Rate FiO2 08/19/16 12:05 97.9 104 18 143/73 97 Room Air 08/19/16 10:32 97.9 08/19/16 09:55 76 18 Room Air 21 08/19/16 08:43 92 136/76 08/19/16 08:00 97.9 103 17 136/67 90 Room Air 08/19/16 07:45 97.7 08/19/16 04:00 97.7 92 20 146/82 96 Room Air 08/19/16 00:00 98.1 83 20 146/68 95 Room Air 08/18/16 20:00 97.7 77 19 143/71 95 Room Air 08/18/16 19:54 72 18 Room Air 21 08/18/16 16:00 97.7 74 18 123/78 94 Room Air Intake and Output 08/18/16 08/19/16 19:00 07:00 Intake Total 250 ml 420 ml Balance 250 ml 420 ml Intake Oral 250 ml 420 ml # Voids 2 1 # Bowel Movements 2 2 Height (Feet): 5 Height (Inches): 0.00 Weight (Pounds): 91 General Appearance: lethargic EENT: normal ENT inspection Neck: normal alignment Cardiovascular: normal peripheral pulses, normal rate, regular rhythm Respiratory/Chest: chest wall non-tender, lungs clear, normal breath sounds Abdomen: normal bowel sounds, non tender, soft Extremities: normal inspection Edema: no edema noted Arm (L), no edema noted Arm (R), no edema noted Leg (L), no edema noted Leg (R), no edema noted Pedal (L), no edema noted Pedal (R), no edema noted Generalized Neurologic: responsive, motor weakness Skin: normal pigmentation, warm/dry ZARA MAS Aug 19, 2016 13:55
--- NOTE | 2016-08-19 14:28 | Pulmonology Progress Note ---
Assessment/Plan Problems: (1) Closed intertrochanteric fracture of left hip (2) Severe protein-calorie malnutrition (3) Azotemia (4) Dementia Assessment/Plan pt/ot pain control check electrolytes Subjective ROS Limited/Unobtainable: No Constitutional: Reports: no symptoms HEENT: Repors: no symptoms Respiratory: Reports: no symptoms Allergies: Coded Allergies: DIAZEPAM (Verified Allergy, Unknown, 08/10/16) ERYTHROMYCIN BASE (Verified Allergy, Unknown, 08/10/16) LATEX (Verified Allergy, Unknown, 08/10/16) MEPERIDINE (Verified Allergy, Unknown, 08/10/16) MOXIFLOXACIN (Verified Allergy, Unknown, 08/10/16) PENICILLINS (Verified Allergy, Unknown, 08/10/16) THIOPENTAL (Verified Allergy, Unknown, 08/10/16) Uncoded Allergies: iv dye (Allergy, Unknown, 08/10/16) Objective Last 24 Hour Vital Signs Date Time Temp Pulse Resp B/P Pulse Ox O2 Delivery O2 Flow Rate FiO2 08/19/16 12:05 97.9 104 18 143/73 97 Room Air 08/19/16 10:32 97.9 08/19/16 09:55 76 18 Room Air 21 08/19/16 08:43 92 136/76 08/19/16 08:00 97.9 103 17 136/67 90 Room Air 08/19/16 07:45 97.7 08/19/16 04:00 97.7 92 20 146/82 96 Room Air 08/19/16 00:00 98.1 83 20 146/68 95 Room Air 08/18/16 20:00 97.7 77 19 143/71 95 Room Air 08/18/16 19:54 72 18 Room Air 21 08/18/16 16:00 97.7 74 18 123/78 94 Room Air Intake and Output 08/18/16 08/19/16 19:00 07:00 Intake Total 250 ml 420 ml Balance 250 ml 420 ml Intake Oral 250 ml 420 ml # Voids 2 1 # Bowel Movements 2 2 General Appearance: WD/WN, no acute distress HEENT: normocephalic Cardiovascular: normal peripheral pulses, normal rate Abdomen: normal bowel sounds, no organomegaly Extremities: no cyanosis, no clubbing Skin: no lesions Current Medications Medications (Trade) Dose Ordered Sig/Taiwo Route PRN Reason Start Time Stop Time Status Last Admin Dose Admin Acetaminophen (Tylenol) 650 mg Q4H PRN ORAL fever 08/10/16 07:00 09/09/16 06:59 08/13/16 20:31 Acetaminophen (Tylenol) 650 mg Q4H PRN ORAL Mild Pain (Pain Scale 1-3) 08/12/16 17:15 09/11/16 17:14 Acetaminophen/ Hydrocodone Bitart ([place] 7.5/325) 1 ea Q4H PRN ORAL Moderate Pain (Pain Scale 4-6) 08/12/16 17:15 08/19/16 17:14 08/19/16 06:46 Al Hydroxide/Mg Hydroxide (Mylanta II) 30 ml Q6H PRN ORAL dyspepsia 08/10/16 07:00 09/09/16 06:59 Albuterol Sulfate (Proventil) 2.5 mg Q4H PRN HHN Shortness of Breath, wheezing 08/17/16 00:00 08/22/16 00:00 Bisacodyl (Dulcolax) 10 mg Q12H PRN RECTAL Constipation FIRST LINE AGENT 08/12/16 17:15 09/11/16 17:14 08/16/16 15:51 Celecoxib (CeleBREX) 200 mg DAILY ORAL 08/13/16 09:00 09/12/16 08:59 08/19/16 08:43 Dextrose (Dextrose 50%) STAT PRN IV Hypoglycemia 08/10/16 07:00 09/09/16 06:59 Dextrose/Sodium Chloride (D5ns) 1,000 ml @ 50 mls/hr Q20H IV 08/14/16 12:00 09/13/16 11:59 08/17/16 00:00 Diphenhydramine HCl (Benadryl) 50 mg Q6H PRN ORAL Itching 08/17/16 02:00 09/16/16 01:59 08/18/16 08:03 Docusate Sodium (Colace) 100 mg THREE TIMES A DAY ORAL 08/12/16 21:00 09/11/16 20:59 08/18/16 08:03 Enoxaparin Sodium (Lovenox) 30 mg DAILY SUBQ 08/13/16 09:00 08/23/16 08:59 08/19/16 08:54 Ferrous Sulfate (Feosol) 325 mg THREE TIMES A DAY ORAL 08/12/16 21:00 09/11/16 20:59 08/19/16 08:43 Fluticasone Propionate (Flonase) 2 spray DAILY NASAL 08/10/16 09:00 09/09/16 08:59 08/19/16 08:41 Hydromorphone HCl 1 mg 1 mg Q4H PRN SUBQ Severe Pain (Pain Scale 7-10) 08/12/16 20:30 08/19/16 20:29 08/19/16 10:02 Lorazepam (Ativan 2mg/ml 1ml) 0.4 mg Q4H PRN IM AGITATION 08/18/16 01:15 08/25/16 01:14 08/18/16 16:54 Metoprolol Succinate (Toprol XL) 50 mg DAILY ORAL 08/18/16 09:00 09/17/16 08:59 08/19/16 08:43 Nitrofurantoin (Macrobid) 100 mg EVERY 12 HOURS ORAL 08/18/16 09:00 09/17/16 08:59 08/19/16 08:42 Ondansetron HCl (Zofran) 4 mg Q6H PRN IVP Nausea & Vomiting 08/10/16 07:00 09/09/16 06:59 Polyethylene Glycol (Miralax) 17 gm HSPRN PRN ORAL Constipation 08/10/16 07:00 09/09/16 06:59 08/16/16 09:52 Zolpidem Tartrate (Ambien) 5 mg HSPRN PRN ORAL Insomnia 08/10/16 07:00 09/09/16 06:59 KYRA MOMIN Aug 19, 2016 14:28
--- NOTE | 2016-08-19 15:46 | Infectious Diseases Prog Note ---
Assessment/Plan Problems: (1) UTI (urinary tract infection) Assessment & Plan: on nitrofurantoin since she reacted to Bactrim with itching , had already four days with antibiotics treatment, and her Melgar catheter was removed, will D/C antibiotics since she has low GFR, and she is allergic to other antibiotics her E coli is sensitive to. (2) Closed intertrochanteric fracture of left hip Assessment & Plan: S/P ORIF, ortho is following, continue PT/OT (3) Laceration of forearm, left Assessment & Plan: healing well, continue local wound care (4) Dementia Assessment & Plan: continue supportive care Subjective ROS Limited/Unobtainable: Yes Allergies: Coded Allergies: SULFAMETHOXAZOLE (Verified Allergy, Mild, itching, 08/19/16) TRIMETHOPRIM (Verified Allergy, Mild, itching, 08/19/16) DIAZEPAM (Verified Allergy, Unknown, 08/10/16) ERYTHROMYCIN BASE (Verified Allergy, Unknown, 08/10/16) LATEX (Verified Allergy, Unknown, 08/10/16) MEPERIDINE (Verified Allergy, Unknown, 08/10/16) MOXIFLOXACIN (Verified Allergy, Unknown, 08/10/16) PENICILLINS (Verified Allergy, Unknown, 08/10/16) THIOPENTAL (Verified Allergy, Unknown, 08/10/16) Uncoded Allergies: iv dye (Allergy, Unknown, 08/10/16) Subjective she is more awake, and alert today , up in bed, more coherent , not in distress , denied any itching Objective Vital Signs Last 24 Hour Vital Signs Date Time Temp Pulse Resp B/P Pulse Ox O2 Delivery O2 Flow Rate FiO2 08/19/16 12:05 97.9 104 18 143/73 97 Room Air 08/19/16 10:32 97.9 08/19/16 09:55 76 18 Room Air 21 08/19/16 08:43 92 136/76 08/19/16 08:00 97.9 103 17 136/67 90 Room Air 08/19/16 07:45 97.7 08/19/16 04:00 97.7 92 20 146/82 96 Room Air 08/19/16 00:00 98.1 83 20 146/68 95 Room Air 08/18/16 20:00 97.7 77 19 143/71 95 Room Air 08/18/16 19:54 72 18 Room Air 21 08/18/16 16:00 97.7 74 18 123/78 94 Room Air Height (Feet): 5 Height (Inches): 0.00 Weight (Pounds): 91 General Appearance: WD/WN, no acute distress HEENT: normocephalic, atraumatic, anicteric, mucous membranes moist Respiratory/Chest: chest wall non-tender, lungs clear, normal breath sounds, no respiratory distress, no accessory muscle use Cardiovascular: normal peripheral pulses, normal rate, regular rhythm, no gallop/murmur, no JVD Abdomen: normal bowel sounds, soft, non tender, no organomegaly, non distended , no mass, no scars Extremities: no cyanosis, no clubbing Skin: no rash, no lesions Current Medications Medications (Trade) Dose Ordered Sig/Taiwo Route PRN Reason Start Time Stop Time Status Last Admin Dose Admin Acetaminophen (Tylenol) 650 mg Q4H PRN ORAL fever 08/10/16 07:00 09/09/16 06:59 08/13/16 20:31 Acetaminophen (Tylenol) 650 mg Q4H PRN ORAL Mild Pain (Pain Scale 1-3) 08/12/16 17:15 09/11/16 17:14 Acetaminophen/ Hydrocodone Bitart ([place] 7.5/325) 1 ea Q4H PRN ORAL Moderate Pain (Pain Scale 4-6) 08/12/16 17:15 08/19/16 17:14 08/19/16 14:58 Al Hydroxide/Mg Hydroxide (Mylanta II) 30 ml Q6H PRN ORAL dyspepsia 08/10/16 07:00 09/09/16 06:59 Albuterol Sulfate (Proventil) 2.5 mg Q4H PRN HHN Shortness of Breath, wheezing 08/17/16 00:00 08/22/16 00:00 Bisacodyl (Dulcolax) 10 mg Q12H PRN RECTAL Constipation FIRST LINE AGENT 08/12/16 17:15 09/11/16 17:14 08/16/16 15:51 Celecoxib (CeleBREX) 200 mg DAILY ORAL 08/13/16 09:00 09/12/16 08:59 08/19/16 08:43 Dextrose (Dextrose 50%) STAT PRN IV Hypoglycemia 08/10/16 07:00 09/09/16 06:59 Dextrose/Sodium Chloride (D5ns) 1,000 ml @ 50 mls/hr Q20H IV 08/14/16 12:00 09/13/16 11:59 08/17/16 00:00 Diphenhydramine HCl (Benadryl) 50 mg Q6H PRN ORAL Itching 08/17/16 02:00 09/16/16 01:59 08/18/16 08:03 Docusate Sodium (Colace) 100 mg THREE TIMES A DAY ORAL 08/12/16 21:00 09/11/16 20:59 08/18/16 08:03 Enoxaparin Sodium (Lovenox) 30 mg DAILY SUBQ 08/13/16 09:00 08/23/16 08:59 08/19/16 08:54 Ferrous Sulfate (Feosol) 325 mg THREE TIMES A DAY ORAL 08/12/16 21:00 09/11/16 20:59 08/19/16 08:43 Fluticasone Propionate (Flonase) 2 spray DAILY NASAL 08/10/16 09:00 09/09/16 08:59 08/19/16 08:41 Hydromorphone HCl 1 mg 1 mg Q4H PRN SUBQ Severe Pain (Pain Scale 7-10) 08/12/16 20:30 08/19/16 20:29 08/19/16 10:02 Lorazepam (Ativan 2mg/ml 1ml) 0.4 mg Q4H PRN IM AGITATION 08/18/16 01:15 08/25/16 01:14 08/18/16 16:54 Metoprolol Succinate (Toprol XL) 50 mg DAILY ORAL 08/18/16 09:00 09/17/16 08:59 08/19/16 08:43 Nitrofurantoin (Macrobid) 100 mg EVERY 12 HOURS ORAL 08/18/16 09:00 09/17/16 08:59 08/19/16 08:42 Ondansetron HCl (Zofran) 4 mg Q6H PRN IVP Nausea & Vomiting 08/10/16 07:00 09/09/16 06:59 Polyethylene Glycol (Miralax) 17 gm HSPRN PRN ORAL Constipation 08/10/16 07:00 09/09/16 06:59 08/16/16 09:52 Zolpidem Tartrate (Ambien) 5 mg HSPRN PRN ORAL Insomnia 08/10/16 07:00 09/09/16 06:59 Yayo Salas M.D. Aug 19, 2016 15:45
--- NOTE | 2016-08-19 15:54 | Nephrology Progress Note ---
Assessment/Plan Assessment 1. hyperkalemia 2. Prerenal azotemia. 3. Hematuria. 4. Elevated blood sugar, diabetes is a possibility. 5. Uncontrolled blood pressure. Plan plan change ivf no need for Kayexalate replace electrolyte as need monitoring renal function avoid NSAID Subjective Constitutional: Reports: no symptoms HEENT: Reports: no symptoms Genitourinary: Reports: no symptoms Neurologic/Psychiatric: Reports: no symptoms Subjective awake and alert NAD Objective Objective Last 24 Hour Vital Signs Date Time Temp Pulse Resp B/P Pulse Ox O2 Delivery O2 Flow Rate FiO2 08/19/16 12:05 97.9 104 18 143/73 97 Room Air 08/19/16 10:32 97.9 08/19/16 09:55 76 18 Room Air 21 08/19/16 08:43 92 136/76 08/19/16 08:00 97.9 103 17 136/67 90 Room Air 08/19/16 07:45 97.7 08/19/16 04:00 97.7 92 20 146/82 96 Room Air 08/19/16 00:00 98.1 83 20 146/68 95 Room Air 08/18/16 20:00 97.7 77 19 143/71 95 Room Air 08/18/16 19:54 72 18 Room Air 21 08/18/16 16:00 97.7 74 18 123/78 94 Room Air Intake and Output 08/18/16 08/19/16 19:00 07:00 Intake Total 250 ml 420 ml Balance 250 ml 420 ml Intake Oral 250 ml 420 ml # Voids 2 1 # Bowel Movements 2 2 Height (Feet): 5 Height (Inches): 0.00 Weight (Pounds): 91 Objective HEAD AND NECK: No JVD. No LAD. No thyromegaly. Extraocular movement intact. Pupils are reactive to light and accommodation. LUNGS: Clear to auscultation. CARDIAC: Regular rate and rhythm. S1-S2. No murmur. No rub. ABDOMEN: Soft, nontender, and nondistended. EXTREMITIES: The patient's left hip is internally rotated with severe pain to touch. KATT LAURENT Aug 19, 2016 15:54
[2016-08-19 16:30] VITALS: BP 135/87
[2016-08-19 20:00] VITALS: BP 159/98
[2016-08-19] MEDS: LORazepam Inj 2mg/ml 1ml IM PRN (21:22)
--- NOTE | 2016-08-19 23:40 | Cardiology Progress Note ---
Assessment/Plan Assessment/Plan 1. Multifocal atrial rhythm, discontinue metoprolol, start cardizem in view of PAD and ischemic foot. 2. S/P left Hip ORIF, POD #6, no perioperative cardiac events. 3. Accelerated HTN,metoprolol was switched to cardizem. 4. PVD, acral cyanosis, arterial LE, duplex study. Subjective Subjective Confused Denies chest pain or SOB. Complains about cold feet and pain over the left hip area. Objective Last 24 Hour Vital Signs Date Time Temp Pulse Resp B/P Pulse Ox O2 Delivery O2 Flow Rate FiO2 08/19/16 21:20 127 159/98 08/19/16 20:00 97.9 127 18 159/98 94 Room Air 08/19/16 19:07 103 22 Room Air 21 08/19/16 18:31 96.8 08/19/16 16:30 96.8 72 18 135/87 95 Room Air 08/19/16 12:05 97.9 104 18 143/73 97 Room Air 08/19/16 09:55 76 18 Room Air 21 08/19/16 08:43 92 136/76 08/19/16 08:00 97.9 103 17 136/67 90 Room Air 08/19/16 07:45 97.7 08/19/16 04:00 97.7 92 20 146/82 96 Room Air 08/19/16 00:00 98.1 83 20 146/68 95 Room Air Intake and Output 08/18/16 08/19/16 19:00 07:00 Intake Total 250 ml 420 ml Balance 250 ml 420 ml Intake Oral 250 ml 420 ml # Voids 2 1 # Bowel Movements 2 2 2D Echo: LVEF 60-65%, Mild LVH, Mild AR Objective HEENT: Atraumatic and normocephalic. Anicteric. Pupils are equal, round, and accommodation. Dry mucosal membranes. Pupils are equal, round, and reactive to light and accommodation. Extraocular muscles intact. NECK: JVP is less than 5 cm. No carotid bruits. Carotid upstrokes 2+ bilaterally. CARDIOVASCULAR: Normal S1, S2. Irregularly irregular rhythm. A 2/6 mid systolic murmur in the left sternal border. PMI is at fourth intercostal space in the midclavicular line. LUNGS: Clear to auscultation bilaterally. ABDOMEN: Soft, nontender, and nondistended. No hepatosplenomegaly. Positive bowel sounds. EXTREMITIES: No edema, clubbing or cyanosis right leg. VINH GRIMALDO Aug 19, 2016 23:40
[2016-08-20] VITALS: BP 137/73
[2016-08-20] MEDS: LORazepam Inj 2mg/ml 1ml IM PRN ×2 (02:06→06:17)
[2016-08-20 04:00] VITALS: BP 146/69
[2016-08-20] MEDS: HYDROmorphone 1mg/ml Carpuject SUBQ PRN ×2 (05:17→18:18)
[2016-08-20] MEDS: D5NS 1,000 ML IV SCH (08:00)
[2016-08-20] MEDS: celeBREX 200mg Cap **SURGERY PATIENTS ONLY ORAL SCH (10:31)
[2016-08-20] MEDS: Flonase Nasal Inhaler 16gm NASAL SCH (10:31)
[2016-08-20] MEDS: Docusate 100mg tablet ORAL SCH ×3 (10:32→18:18)
[2016-08-20] MEDS: Enoxaparin 30mg Inj SUBQ SCH (10:37)
[2016-08-20 12:00] VITALS: BP 117/78
--- NOTE | 2016-08-20 13:08 | General Progress Note ---
Assessment/Plan Problem List: (1) Laceration of forearm, left ICD Codes: S51.812A - Laceration without foreign body of left forearm, initial encounter SNOMED: 300772050, 820387938 Qualifiers: Qualified Codes: S51.812A - Laceration without foreign body of left forearm , initial encounter (2) Fall ICD Codes: W19.XXXA - Unspecified fall, initial encounter SNOMED: 2721626, 557622948 Qualifiers: Qualified Codes: W19.XXXA - Unspecified fall, initial encounter (3) Dementia ICD Codes: F03.90 - Unspecified dementia without behavioral disturbance SNOMED: 30483678 (4) Severe protein-calorie malnutrition ICD Codes: E43 - Unspecified severe protein-calorie malnutrition SNOMED: 442821151 (5) Closed intertrochanteric fracture of left hip ICD Codes: S72.142A - Displaced intertrochanteric fracture of left femur, initial encounter for closed fracture SNOMED: 36628515 Qualifiers: Qualified Codes: S72.142A - Displaced intertrochanteric fracture of left femur, initial encounter for closed fracture (6) Azotemia ICD Codes: R79.89 - Other specified abnormal findings of blood chemistry SNOMED: 696452641 Status: stable, progressing, tolerating diet Assessment/Plan ot pt diet abx dc to snf Subjective Constitutional: Reports: weakness Allergies: Coded Allergies: SULFAMETHOXAZOLE (Verified Allergy, Mild, itching, 08/19/16) TRIMETHOPRIM (Verified Allergy, Mild, itching, 08/19/16) DIAZEPAM (Verified Allergy, Unknown, 08/10/16) ERYTHROMYCIN BASE (Verified Allergy, Unknown, 08/10/16) LATEX (Verified Allergy, Unknown, 08/10/16) MEPERIDINE (Verified Allergy, Unknown, 08/10/16) MOXIFLOXACIN (Verified Allergy, Unknown, 08/10/16) PENICILLINS (Verified Allergy, Unknown, 08/10/16) THIOPENTAL (Verified Allergy, Unknown, 08/10/16) Uncoded Allergies: iv dye (Allergy, Unknown, 08/10/16) All Systems: reviewed and negative except above Subjective sleepy calm Objective Last 24 Hour Vital Signs Date Time Temp Pulse Resp B/P Pulse Ox O2 Delivery O2 Flow Rate FiO2 08/20/16 12:00 97.1 20 117/78 95 Room Air 08/20/16 08:40 56 18 Nasal Cannula 2.0 28 08/20/16 06:12 109 146/69 08/20/16 04:00 97.7 20 146/69 97 Room Air 08/20/16 00:00 95.1 20 137/73 96 Room Air 08/19/16 21:20 127 159/98 08/19/16 20:00 97.9 127 18 159/98 94 Room Air 08/19/16 19:07 103 22 Room Air 21 08/19/16 18:31 96.8 08/19/16 16:30 96.8 72 18 135/87 95 Room Air Intake and Output 08/19/16 08/20/16 19:00 07:00 Intake Total 260 ml 360 ml Balance 260 ml 360 ml Intake Oral 260 ml 360 ml # Voids 2 3 # Bowel Movements 3 3 Height (Feet): 5 Height (Inches): 0.00 Weight (Pounds): 91 General Appearance: lethargic EENT: normal ENT inspection Neck: normal alignment Cardiovascular: normal peripheral pulses, normal rate, regular rhythm Respiratory/Chest: chest wall non-tender, lungs clear, normal breath sounds Abdomen: normal bowel sounds, non tender, soft Extremities: normal inspection Edema: no edema noted Arm (L), no edema noted Arm (R), no edema noted Leg (L), no edema noted Leg (R), no edema noted Pedal (L), no edema noted Pedal (R), no edema noted Generalized Neurologic: responsive, motor weakness Skin: normal pigmentation, warm/dry ZARA MAS Aug 20, 2016 13:08
--- NOTE | 2016-08-20 15:52 | Pulmonology Progress Note ---
Assessment/Plan Problems: (1) Closed intertrochanteric fracture of left hip (2) Severe protein-calorie malnutrition (3) Azotemia (4) Dementia Assessment/Plan pt/ot pain control check electrolytes respiratroy treatment titrate fio2 dc planning in process Subjective ROS Limited/Unobtainable: No Constitutional: Reports: no symptoms Respiratory: Reports: no symptoms Cardiovascular: Reports: no symptoms Allergies: Coded Allergies: SULFAMETHOXAZOLE (Verified Allergy, Mild, itching, 08/19/16) TRIMETHOPRIM (Verified Allergy, Mild, itching, 08/19/16) DIAZEPAM (Verified Allergy, Unknown, 08/10/16) ERYTHROMYCIN BASE (Verified Allergy, Unknown, 08/10/16) LATEX (Verified Allergy, Unknown, 08/10/16) MEPERIDINE (Verified Allergy, Unknown, 08/10/16) MOXIFLOXACIN (Verified Allergy, Unknown, 08/10/16) PENICILLINS (Verified Allergy, Unknown, 08/10/16) THIOPENTAL (Verified Allergy, Unknown, 08/10/16) Uncoded Allergies: iv dye (Allergy, Unknown, 08/10/16) Objective Last 24 Hour Vital Signs Date Time Temp Pulse Resp B/P Pulse Ox O2 Delivery O2 Flow Rate FiO2 08/20/16 12:00 97.1 20 117/78 95 Room Air 08/20/16 08:40 56 18 Nasal Cannula 2.0 28 08/20/16 06:12 109 146/69 08/20/16 04:00 97.7 20 146/69 97 Room Air 08/20/16 00:00 95.1 20 137/73 96 Room Air 08/19/16 21:20 127 159/98 08/19/16 20:00 97.9 127 18 159/98 94 Room Air 08/19/16 19:07 103 22 Room Air 21 08/19/16 18:31 96.8 08/19/16 16:30 96.8 72 18 135/87 95 Room Air Intake and Output 08/19/16 08/20/16 19:00 07:00 Intake Total 260 ml 360 ml Balance 260 ml 360 ml Intake Oral 260 ml 360 ml # Voids 2 3 # Bowel Movements 3 3 General Appearance: cachetic HEENT: normocephalic, atraumatic Respiratory/Chest: chest wall non-tender, lungs clear Cardiovascular: normal peripheral pulses, normal rate Abdomen: normal bowel sounds, soft, non tender Extremities: no cyanosis Skin: no rash, no lesions Current Medications Medications (Trade) Dose Ordered Sig/Taiwo Route PRN Reason Start Time Stop Time Status Last Admin Dose Admin Acetaminophen (Tylenol) 650 mg Q4H PRN ORAL fever 08/10/16 07:00 09/09/16 06:59 08/13/16 20:31 Acetaminophen (Tylenol) 650 mg Q4H PRN ORAL Mild Pain (Pain Scale 1-3) 08/12/16 17:15 09/11/16 17:14 Al Hydroxide/Mg Hydroxide (Mylanta II) 30 ml Q6H PRN ORAL dyspepsia 08/10/16 07:00 09/09/16 06:59 Albuterol Sulfate (Proventil) 2.5 mg Q4H PRN HHN Shortness of Breath, wheezing 08/17/16 00:00 08/22/16 00:00 Bisacodyl (Dulcolax) 10 mg Q12H PRN RECTAL Constipation FIRST LINE AGENT 08/12/16 17:15 09/11/16 17:14 08/16/16 15:51 Celecoxib (CeleBREX) 200 mg DAILY ORAL 08/13/16 09:00 09/12/16 08:59 08/20/16 10:31 Dextrose (Dextrose 50%) STAT PRN IV Hypoglycemia 08/10/16 07:00 09/09/16 06:59 Dextrose/Sodium Chloride (D5ns) 1,000 ml @ 50 mls/hr Q20H IV 08/14/16 12:00 09/13/16 11:59 08/17/16 00:00 Diltiazem HCl (Cardizem) 30 mg EVERY 8 HOURS ORAL 08/19/16 22:00 09/18/16 21:59 08/20/16 06:12 Diphenhydramine HCl (Benadryl) 50 mg Q6H PRN ORAL Itching 08/17/16 02:00 09/16/16 01:59 08/18/16 08:03 Docusate Sodium (Colace) 100 mg THREE TIMES A DAY ORAL 08/12/16 21:00 09/11/16 20:59 08/20/16 10:32 Enoxaparin Sodium (Lovenox) 30 mg DAILY SUBQ 08/13/16 09:00 08/23/16 08:59 08/20/16 10:37 Ferrous Sulfate 325 mg 325 mg THREE TIMES A DAY ORAL 08/12/16 21:00 09/11/16 20:59 08/20/16 10:32 Fluticasone Propionate (Flonase) 2 spray DAILY NASAL 08/10/16 09:00 09/09/16 08:59 08/20/16 10:31 Hydromorphone HCl (Dilaudid) 1 mg Q4H PRN SUBQ Severe Pain (Pain Scale 7-10) 08/20/16 04:45 08/27/16 04:44 08/20/16 05:17 Lorazepam (Ativan 2mg/ml 1ml) 0.4 mg Q4H PRN IM AGITATION 08/18/16 01:15 08/25/16 01:14 08/20/16 06:17 Ondansetron HCl (Zofran) 4 mg Q6H PRN IVP Nausea & Vomiting 08/10/16 07:00 09/09/16 06:59 Polyethylene Glycol (Miralax) 17 gm HSPRN PRN ORAL Constipation 08/10/16 07:00 09/09/16 06:59 08/16/16 09:52 Zolpidem Tartrate (Ambien) 5 mg HSPRN PRN ORAL Insomnia 08/10/16 07:00 09/09/16 06:59 KYRA MOMIN Aug 20, 2016 15:52
--- NOTE | 2016-08-20 15:58 | Nephrology Progress Note ---
Assessment/Plan Assessment 1. hyperkalemia 2. Prerenal azotemia. 3. Hematuria. 4. Elevated blood sugar, diabetes is a possibility. 5. Uncontrolled blood pressure. Plan plan d/c ivf no need for Kayexalate replace electrolyte as need monitoring renal function avoid NSAID Subjective Constitutional: Reports: no symptoms HEENT: Reports: no symptoms Neurologic/Psychiatric: Reports: no symptoms Subjective awake and alert NAD caregiver in her bedside good appetite Objective Objective Last 24 Hour Vital Signs Date Time Temp Pulse Resp B/P Pulse Ox O2 Delivery O2 Flow Rate FiO2 08/20/16 12:00 97.1 20 117/78 95 Room Air 08/20/16 08:40 56 18 Nasal Cannula 2.0 28 08/20/16 06:12 109 146/69 08/20/16 04:00 97.7 20 146/69 97 Room Air 08/20/16 00:00 95.1 20 137/73 96 Room Air 08/19/16 21:20 127 159/98 08/19/16 20:00 97.9 127 18 159/98 94 Room Air 08/19/16 19:07 103 22 Room Air 21 08/19/16 18:31 96.8 08/19/16 16:30 96.8 72 18 135/87 95 Room Air Intake and Output 08/19/16 08/20/16 19:00 07:00 Intake Total 260 ml 360 ml Balance 260 ml 360 ml Intake Oral 260 ml 360 ml # Voids 2 3 # Bowel Movements 3 3 Height (Feet): 5 Height (Inches): 0.00 Weight (Pounds): 91 Objective HEAD AND NECK: No JVD. No LAD. No thyromegaly. Extraocular movement intact. Pupils are reactive to light and accommodation. LUNGS: Clear to auscultation. CARDIAC: Regular rate and rhythm. S1-S2. No murmur. No rub. ABDOMEN: Soft, nontender, and nondistended. EXTREMITIES: The patient's left hip is internally rotated with severe pain to touch. KATT LAURENT Aug 20, 2016 15:58
[2016-08-20 16:00] VITALS: BP 115/69
--- NOTE | 2016-08-20 17:30 | Infectious Diseases Prog Note ---
Assessment/Plan Problems: (1) UTI (urinary tract infection) Assessment & Plan: was treated with nitrofurantoin since she reacted to Bactrim with itching , and had already four days with antibiotics treatment, her Melgar catheter was removed, now off antibiotics , continue to monitor clinically (2) Closed intertrochanteric fracture of left hip Assessment & Plan: S/P ORIF, ortho is following, continue PT/OT (3) Laceration of forearm, left Assessment & Plan: healing well, continue local wound care (4) Dementia Assessment & Plan: continue supportive care Subjective Constitutional: Reports: no symptoms HEENT: Reports: no symptoms Respiratory: Reports: no symptoms Breasts: Reports: no symptoms Cardiovascular: Reports: no symptoms Gastrointestinal/Abdominal: Reports: no symptoms Genitourinary: Reports: no symptoms Neurologic: Reports: no symptoms Psychiatric: Reports: no symptoms Skin: Reports: no symptoms Allergies: Coded Allergies: SULFAMETHOXAZOLE (Verified Allergy, Mild, itching, 08/19/16) TRIMETHOPRIM (Verified Allergy, Mild, itching, 08/19/16) DIAZEPAM (Verified Allergy, Unknown, 08/10/16) ERYTHROMYCIN BASE (Verified Allergy, Unknown, 08/10/16) LATEX (Verified Allergy, Unknown, 08/10/16) MEPERIDINE (Verified Allergy, Unknown, 08/10/16) MOXIFLOXACIN (Verified Allergy, Unknown, 08/10/16) PENICILLINS (Verified Allergy, Unknown, 08/10/16) THIOPENTAL (Verified Allergy, Unknown, 08/10/16) Uncoded Allergies: iv dye (Allergy, Unknown, 08/10/16) Subjective she is more awake, and alert today , up in bed, more coherent , not in distress , denied any itching Objective Vital Signs Last 24 Hour Vital Signs Date Time Temp Pulse Resp B/P Pulse Ox O2 Delivery O2 Flow Rate FiO2 08/20/16 12:00 97.1 20 117/78 95 Room Air 08/20/16 08:40 56 18 Nasal Cannula 2.0 28 08/20/16 06:12 109 146/69 08/20/16 04:00 97.7 20 146/69 97 Room Air 08/20/16 00:00 95.1 20 137/73 96 Room Air 08/19/16 21:20 127 159/98 08/19/16 20:00 97.9 127 18 159/98 94 Room Air 08/19/16 19:07 103 22 Room Air 21 08/19/16 18:31 96.8 Height (Feet): 5 Height (Inches): 0.00 Weight (Pounds): 91 General Appearance: WD/WN, no acute distress HEENT: normocephalic, atraumatic, anicteric, mucous membranes moist Respiratory/Chest: chest wall non-tender, lungs clear, normal breath sounds, no respiratory distress, no accessory muscle use Cardiovascular: normal peripheral pulses, normal rate, regular rhythm, no gallop/murmur, no JVD Abdomen: normal bowel sounds, soft, non tender, no organomegaly, non distended , no mass, no scars Extremities: no cyanosis, no clubbing Skin: no rash, no lesions Current Medications Medications (Trade) Dose Ordered Sig/Taiwo Route PRN Reason Start Time Stop Time Status Last Admin Dose Admin Acetaminophen (Tylenol) 650 mg Q4H PRN ORAL fever 08/10/16 07:00 09/09/16 06:59 08/13/16 20:31 Acetaminophen (Tylenol) 650 mg Q4H PRN ORAL Mild Pain (Pain Scale 1-3) 08/12/16 17:15 09/11/16 17:14 Al Hydroxide/Mg Hydroxide (Mylanta II) 30 ml Q6H PRN ORAL dyspepsia 08/10/16 07:00 09/09/16 06:59 Albuterol Sulfate (Proventil) 2.5 mg Q4H PRN HHN Shortness of Breath, wheezing 08/17/16 00:00 08/22/16 00:00 Bisacodyl (Dulcolax) 10 mg Q12H PRN RECTAL Constipation FIRST LINE AGENT 08/12/16 17:15 09/11/16 17:14 08/16/16 15:51 Celecoxib (CeleBREX) 200 mg DAILY ORAL 08/13/16 09:00 09/12/16 08:59 08/20/16 10:31 Dextrose (Dextrose 50%) STAT PRN IV Hypoglycemia 08/10/16 07:00 09/09/16 06:59 Diltiazem HCl (Cardizem) 30 mg EVERY 8 HOURS ORAL 08/19/16 22:00 09/18/16 21:59 08/20/16 06:12 Diphenhydramine HCl (Benadryl) 50 mg Q6H PRN ORAL Itching 08/17/16 02:00 09/16/16 01:59 08/18/16 08:03 Docusate Sodium (Colace) 100 mg THREE TIMES A DAY ORAL 08/12/16 21:00 09/11/16 20:59 08/20/16 10:32 Enoxaparin Sodium (Lovenox) 30 mg DAILY SUBQ 08/13/16 09:00 08/23/16 08:59 08/20/16 10:37 Ferrous Sulfate (Feosol) 325 mg THREE TIMES A DAY ORAL 08/12/16 21:00 09/11/16 20:59 08/20/16 10:32 Fluticasone Propionate (Flonase) 2 spray DAILY NASAL 08/10/16 09:00 09/09/16 08:59 08/20/16 10:31 Hydromorphone HCl (Dilaudid) 1 mg Q4H PRN SUBQ Severe Pain (Pain Scale 7-10) 08/20/16 04:45 08/27/16 04:44 08/20/16 05:17 Lorazepam (Ativan 2mg/ml 1ml) 0.4 mg Q4H PRN IM AGITATION 08/18/16 01:15 08/25/16 01:14 08/20/16 06:17 Ondansetron HCl (Zofran) 4 mg Q6H PRN IVP Nausea & Vomiting 08/10/16 07:00 09/09/16 06:59 Polyethylene Glycol (Miralax) 17 gm HSPRN PRN ORAL Constipation 08/10/16 07:00 09/09/16 06:59 08/16/16 09:52 Zolpidem Tartrate (Ambien) 5 mg HSPRN PRN ORAL Insomnia 08/10/16 07:00 09/09/16 06:59 Yayo Salas M.D. Aug 20, 2016 17:30
[2016-08-20 20:00] VITALS: BP 119/76
--- NOTE | 2016-08-21 10:23 | Diagnostic Imaging Report ---
APPROVED REPORT CPT Code: 83440 Symptoms Rest Pain : Bilaterally RIGHT LEG: Common femoral artery waveform analysis is within normal limits at rest. Color flow duplex sonography reveals calcification throughout the superficial femoral and popliteal arteries. There is no evidence of significant stenosis or occlusion within these segments. The tibioperoneal trunk is patent. The tibial arteries are also moderately calcified. Doppler tibial artery waveform analysis is monophasic, consistent with moderate ischemia at rest. LEFT LEG: Common femoral artery waveform analysis is abnormal, suggestive of iliac arterial occlusive disease. Color flow duplex sonography reveals calcification throughout the superficial femoral and popliteal arteries. There is no evidence of significant stenosis or occlusion within these segments. The tibioperoneal trunk is patent. The tibial arteries are also moderately calcified. Doppler tibial artery waveform analysis is monophasic, consistent with moderate ischemia at rest.
--- NOTE | 2016-08-22 16:38 | Discharge Summary ---
Discharge Summary Hospital Course Date of Admission Aug 10, 2016 at 02:55 Date of Discharge Aug 20, 2016 at 21:55 Admitting Diagnosis left hip fracture HPI Xochitl Jaffe is a 85 year old female who was admitted on Aug 10, 2016 at 02: 55 for Left Hip Fracture Hospital Course [id number] Discharge Discharge Disposition Patient was discharged to Home with Home Health(06) Discharge Diagnoses: Charlotte Licea NP Aug 22, 2016 16:38
--- NOTE | 2016-08-23 03:18 | Discharge Summary 2 SIG ---
DATE OF ADMISSION: 08/10/2016 DATE OF DISCHARGE: 08/20/2016 CONSULTANTS: 1. Pedro Moore M.D. 2. Zach Dempsey M.D. 3. Marcial Silva M.D. 4. Caridad Wright M.D. 5. Yayo Salas M.D. BRIEF HOSPITAL COURSE: The patient is a 85-year-old female who lives at home, apparently slipped and fell, and fractured the left hip. She came to [facility] and was diagnosed to have a left hip fracture and was admitted to medical floor for further treatment. Dr. Moore was consulted. X-rays and CT scans of the left hip was reviewed. There is significant comminuted pertrochanteric fracture and the patient will need surgery. She was recommended a cardiac clearance prior to surgery and was seen by Dr. Silva. Echocardiogram showed normal left ventricular systolic function with a EF of 60% to 65%. The patient was cleared for surgery. She came in with prerenal azotemia and hypocalcemia, and was given IV medications and started on Norvasc. She was followed by Dr. Wright. On 08/12/2016, she underwent left hip ORIF. Postoperatively, she was given pain management and physical therapy. Electrolytes were replaced and was continued on IV hydration. She had an episode of hypotension and received IV bolus, however, had a rebound on hypertension and was started on low-dose beta tavia. Dr. Salas was consulted for urinary tract infection. Melgar catheter was discontinued. She was started empirically on Bactrim. However, developed itching and antibiotic was switched to nitrofurantoin. She is allergic to other antibiotics. IV hydration was discontinued. Respiratory status is stable. The patient was eventually discharged to home with home health. FINAL DIAGNOSES: 1. Acute fracture of left hip, status post open reduction and internal fixation. 2. Severe protein-calorie malnutrition. 3. Azotemia. 4. Urinary tract infection with E. coli. 5. Laceration of left forearm secondary to fall present on admission. 6. Dementia. 7. Uncontrolled hypertension/has hypertensive urgency. 8. Hyperkalemia. 9. Multifocal atrial rhythm. Discontinue metoprolol and start Cardizem in view of peripheral artery disease and ischemic foot. 10. Right sacral DTI, left sacral DTI revealing self as stage II present on admission. Carl Newell D.O. I have been assigned to dictate discharge summary on this account and I was not involved in the patient's management. Charlotte Licea N.P. DR: FATMATA JOB#: [id number] CC: AMINAH
--- NOTE | 2016-09-11 22:53 | Physician Query ---
PLEASE COMPLETE THE QUESTION BEFORE SIGNING Dear Dr. MAS Date: 09/11/16 Storage Architect/CDS Name:CHRISTINE MALLOY, CCS, CCDS Exercise your independent professional judgment when responding to the query. Questions asked do not imply a particular answer is desired or expected. We greatly appreciate your clarification on this issue. CLINICAL DOCUMENTATION STATES: Patient came in for a fall that required surgery on 08/10/2016. Donato catheter was placed on the same day, she developed burning and pain on the , ID consultation placed her on Bactrim for which she had reaction, then was placed on Nitrofurantoin. Culture was positive for E- Coli. Donato was D/C' ed on 2016, she did well and was discharged on 08/20/2016. DONATO INSERTED POST SURGERY-Dr. KINSEY CONSULT 08/16 STATED REMOVE DONATO "PROBABLE" CAUSE OF UTI CLINICAL FINDINGS SHOW: URINE CULTURE Final Organism 1 ESCHERICHIA COLI COLONY COUNT: >100,000 CFU/ML Please respond to the following question: IF KNOWN, CAN YOU state what was the source of the postoperative UTI? PHYSICIAN RESPONSE: Condition Present on admission [] Yes [] No []Clinically Undeterminable Please also document in your Progress Notes and/or Discharge summary and indicate if the condition was present on admission. ZARA MAS M.D. DATE & TIME [facility]
== END 2016-08-20 21:55 | disposition short-term general hospital (02) | DRG 480 ==
LOC: EDBD 00:37 → EMR 01:02 → 3E 02:55 → EDBEDREQ 03:28
PROC: 0HQEXZZ Repair Left Lower Arm Skin, External Approach (ICD-10-PCS; principal; 2016-08-10)
PROC: 0QS704Z Reposition Left Upper Femur with Internal Fixation Device, Open Approach (ICD-10-PCS; 2016-08-12)
DX: S72.112A Displaced fracture of greater trochanter of left femur, initial encounter for closed fracture (principal); E43 Unspecified severe protein-calorie malnutrition; L89.152 Pressure ulcer of sacral region, stage 2; I95.9 Hypotension, unspecified; E87.5 Hyperkalemia; E11.9 Type 2 diabetes mellitus without complications; E83.51 Hypocalcemia; F03.90 Unspecified dementia, unspecified severity, without behavioral disturbance, psychotic disturbance, mood disturbance, and anxiety; E86.0 Dehydration; Z68.1 Body mass index [BMI] 19.9 or less, adult; T83.511A Infection and inflammatory reaction due to indwelling urethral catheter, initial encounter; N39.0 Urinary tract infection, site not specified; D72.829 Elevated white blood cell count, unspecified; I10 Essential (primary) hypertension; S72.122A Displaced fracture of lesser trochanter of left femur, initial encounter for closed fracture; W01.0XXA Fall on same level from slipping, tripping and stumbling without subsequent striking against object, initial encounter; Y92.009 Unspecified place in unspecified non-institutional (private) residence as the place of occurrence of the external cause; S51.812A Laceration without foreign body of left forearm, initial encounter; R31.9 Hematuria, unspecified; R79.89 Other specified abnormal findings of blood chemistry; I73.9 Peripheral vascular disease, unspecified
CPT/HCPCS: 36415; 71010; 72170; 73502; 76001; 76700; 80048; 80053; 81001; 82248; 82306; 82550; 83735; 84100; 84484; 85025; 85610; 85730; 86705; 86709; 86803; 86850; 86900; 86901; 86920; 87086; 87181; 87340; 90471; 90715; 93005; 93306; 93925; 94003; 94150; 94664; J2250; J2405; S0077